=== PATIENT | female | born 1990 | race Caucasian/White ===

== ENCOUNTER 2016-12-13 08:18 | Observation (INO) | payer BC ==
--- NOTE | 2016-12-13 09:26 | RAD ---
INDICATION: Increased liver function tests. COMPARISON: Comparison is made with a prior right upper quadrant ultrasound from November 10, 2015. TECHNIQUE: Multiple real-time images of the right upper quadrant were obtained. FINDINGS: The gallbladder appear normal. No gallbladder wall thickening or pericholecystic fluid is present. No intra or extrahepatic ductal distention is present. The common bile duct measured 0.4 cm in diameter. The liver is normal in size without significant focal abnormality. The previously noted hyperechoic lesions within the liver are not seen on the current study. The pancreas is obscured by overlying bowel gas. The right kidney is normal in size without evidence for hydronephrosis. IMPRESSION: NEGATIVE EXAM.
[2016-12-13 09:44] LABS: Hematocrit 37 % (35-47); Hemoglobin 12.9 g/dl (12.0-16.0); Mean Corpuscular HGB Conc 34 g/dl (31-36); Mean Corpuscular Hemoglobin 35 pg (27-31); Mean Corpuscular Volume 101 fL (80-97); Mean Platelet Volume 7 um3 (7.4-10.4); Red Cell Distribution Width 14 % (10.5-15); White Blood Count 5.4 10^3/ul (3.5-10.8)
[2016-12-13 10:01] LABS: ALT 111 U/L (7-52); AST 187 U/L (13-39); Alkaline Phosphatase 102 U/L (34-104); Amylase 47 U/L (29-103); BUN/Creatinine Ratio 7.8 (8-20); Blood Urea Nitrogen 5 mg/dL (6-24); C Reactive Protein 1.62 mg/L (< 5.00); CO2 Carbon Dioxide 29 mmol/L (22-32); Calcium 8.5 mg/dL (8.6-10.3); Chloride 100 mmol/L (101-111); EGFR African American 142.1 (>60); EGFR Non-African American 110.5 (>60); Glucose 86 mg/dL (70-100); Lipase 52 U/L (11.0-82.0); Magnesium 1.4 mg/dL (1.9-2.7); Sodium 140 mmol/L (133-145)
[2016-12-13 10:04] LABS: Anion Gap 11 mmol/L (2-11); Potassium 2.4 mmol/L (3.5-5.0)
[2016-12-13] MEDS ORDERED: Potassium Chlor TAB* 20 MEQ TAB.ER PO ONE (10:04)
[2016-12-13 10:28] LABS: Urine Bacteria Absent (Absent); Urine Bilirubin Negative (Negative); Urine Glucose Negative (Negative); Urine Nitrite Negative (Negative)
[2016-12-13] MEDS: KCL 10 MEQ/50 ML IVPREMIX* 10 MEQ/50 ML BAG IV SCH ×3 (10:39→13:02)
[2016-12-13] MEDS ORDERED: Magnesium Sulfate 1 GM IV* 1 GM/100 ML BAG IV ONE (10:42)
[2016-12-13] MEDS ORDERED: Magnesium Sulf 4 GM/100 ML IV* 4,000 MG/100 ML BAG IVPB ONE (11:57)
--- NOTE | 2016-12-13 14:49 | ED ---
Laci Acosta Billy, scribed for Samuel Gustafson MD on 12/13/16 at 0846 . Complex/Multi-Sys Presentation - HPI Summary HPI Summary: Patient is a 26 year-old female coming to [facility] for evaluation of diffuse bruising on the lower extremities starting approximately 3 weeks. The bruises hurt with palpation. Patient was referred to the ED by Dr. Felix (cardiology) . She states that her symptoms began when she started her blood pressure medication. Denies any significant injury or trauma that could be the cause of the bruising. Denies any other symptoms such as hematemesis, hematochezia, hematuria, or abdominal pain. She had a recent tick bite to the LUE. - History Of Current Complaint Chief Complaint: EDGeneral Time Seen by Provider: 12/13/16 08:35 Hx Obtained From: Patient Onset/Duration: Gradual Onset, Lasting Weeks, Still Present Timing: Constant Severity Currently: Moderate Severity Initially: Moderate Aggravating Factor(s): bruises hurt with palpation Associated Signs And Symptoms: Negative: Hematemesis - Allergies/Home Medications Allergies/Adverse Reactions: Allergies Allergy/AdvReac Type Severity Reaction Status Date / Time No Known Allergies Allergy Verified 03/27/16 18:29 PMH/Surg Hx/FS Hx/Imm Hx Neurological History: Reports: Hx Seizures, Other Neuro Impairments/Disorders - Syncope Psychiatric History: Reports: Hx Bipolar Disorder Infectious Disease History: No Infectious Disease History: Denies: Traveled Outside the [place] in Last 30 Days - Family History Family History: Mother with rheumatoid arthritis. - Social History Alcohol Use: Occasionally Substance Use Type: Reports: None Hx Tobacco Use: Yes Smoking Status (MU): Light Every Day Tobacco Smoker Review of Systems Negative: Fever Positive: Bruising, Other - tick bite LUE All Other Systems Reviewed And Are Negative: Yes Physical Exam - Summary Physical Exam Summary: The patient is well-nourished in no acute distress and in no acute pain. The skin is warm and dry and skin color reflects adequate perfusion. There is diffuse ecchymosis of the bilateral lower extremities; some bruises are new, whereas others appear to be fading. There is also a tick bite to the posterior aspect of the left upper extremity. HEENT: The head is normocephalic and atraumatic. The pupils are equal and reactive. The conjunctivae are clear and without drainage. Nares are patent and without drainage. Mouth reveals moist mucous membranes and the throat is without erythema and exudate. The external ears are intact. The ear canals are patent and without drainage. The tympanic membranes are intact. Neck is supple with full range of motion and non-tender. There are no carotid bruits. There is no neck vein distension. Respiratory: Chest is non-tender. Lungs are clear to auscultation and breath sounds are symmetrical and equal. Cardiovascular: Heart is regular rate and rhythm. There is no murmur or rub auscultated. There is no peripheral edema and pulses are symmetrical and equal. Abdomen: The abdomen is soft and non-tender. There are normal bowel sounds heard in all four quadrants and there is no organomegaly palpated. Musculoskeletal: There is no back pain noted. Extremities are non-tender with full range of motion. There is good capillary refill. There is no peripheral edema or calf tenderness elicited. Neurological: Patient is alert and oriented to person, place and time. The patient has symmetrical motor strength in all four extremities. Cranial nerves are grossly intact. Deep tendon reflexes are symmetrical and equal in all four extremities. Psychiatric: The patient has an appropriate affect and does not exhibit any anxiety or depression. Triage Information Reviewed: Yes Vital Signs On Initial Exam: Initial Vitals Temp Pulse Resp BP Pulse Ox 98.4 F 117 20 142/98 98 12/13/16 08:19 12/13/16 08:19 12/13/16 08:19 12/13/16 08:19 12/13/16 08:19 Vital Signs Reviewed: Yes Diagnostics - Vital Signs Vital Signs Temp Pulse Resp BP Pulse Ox 12/13/16 08:19 98.4 F 117 20 142/98 98 - Laboratory Result Diagrams: 12/13/16 09:34 12/13/16 09:34 Lab Statement: Any lab studies that have been ordered have been reviewed, and results considered in the medical decision making process. - Ultrasound No standard instances Ultrasound Interpretation Completed By: Radiologist - GALLBLADDER ULTRASOUND: NEGATIVE EXAM. - EKG 1016 EKG Interpretation: NSR 81 bpm, no ST elevation Complex Multi-Symp Course/Dx Assessment/Plan: Patient is a 26 year-old female coming to [facility] for evaluation of diffuse bruising on the lower extremities starting approximately 3 weeks. The bruises hurt with palpation. Patient was referred to the ED by Dr. Felix ( cardiology). She states that her symptoms began when she started her blood pressure medication. Denies any significant injury or trauma that could be the cause of the bruising. Denies any other symptoms such as hematemesis, hematochezia, hematuria, or abdominal pain. She had a recent tick bite to the LUE. Bloodwork WNL except for potassium of 2.4, calcium of 8.5, magnesium of 1.4, and increased LFTs, AST 187, and ALT 111. UA is negative for UTI. At this point, the patient is still waiting for hepatitis panel and also bleeding coagulation test. EKG shows NSR without ST elevations. In the ED course, patient was given potassium 40mg PO and she will be started with IV runs of potassium, magnesium for hypomagnesemia. At this time, I discussed my findings and test results with Dr. White who will be admitting the patient to his services for further workup and management. A&Ox3. - Diagnoses Provider Diagnoses: Hypomagnesemia, Hypokalemia, increased LFTs, diffuse bruising - Physician Notifications Discussed Care Of Patient With: Dr. White (hospitalist) @ 1030: accepted admission. Discharge - Discharge Plan Condition: Stable Disposition: ADMITTED TO [facility] Referrals: Sonny Wilhelm MD [Primary Care Provider] - The documentation as recorded by the Laci marques Billy accurately reflects the service I personally performed and the decisions made by me, Samuel Gustafson MD.
[2016-12-13 15:33] LABS: Potassium 2.8 mmol/L (3.5-5.0)
[2016-12-13 15:36] LABS: Magnesium 4.9 mg/dL (1.9-2.7)
[2016-12-13 15:54] VITALS: BP 135/74
--- NOTE | 2016-12-13 17:06 | ADMNOTE ---
Subjective Date of Service: 12/13/16 Interval History: Ms. Nunez is a 26 yo female with PMH significant for mitral valve disorder, right bundle branch block, neurocardiogenic syncope, Bipolar disorder, hypertension, and possible POTS who presented to the emergency room after being told to come over by Dr. Felix's office for low potassium. She reports having blood work done yesterday and the doctor's office was unable to contact her to notify her of the lab results. While in the emergency room she was found to have potassium of 2.4 and a magnesium of 1.4. She had a Family History: Findings - Reports unknown cancer in her gransfathers Social History: Findings - Smokes 3-5 cigarettes daily for approximately 3 years , occasional drink alcohol, and denies recreational drugs. 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 Her mother Clyde Nunez will be her surrogate decision maker in the event she is unable to make decisions for herself. Review of Systems - Measurements Intake and Output: Intake and Output Last 24 Hours 12/11/16 12/12/16 12/13/16 12/14/16 06:59 06:59 06:59 06:59 Intake Total 676 Balance 676 Intake: IV Fluids 196 Oral 480 Other: Estimated Void Large # Voids 1 - Review of Systems HEENT: Positive: Normal Eyes: Positive: Normal Pulmonary: Negative: Cough Cardiology: Negative: Chest Pain, Shortness of Breath, Palpitations Gastroenterology: Negative: Abdominal Pain, Nausea, Vomiting, Diarrhea Genital - Urinary: Positive: Normal Endocrinology: Positive: Normal Hematologic/Lymphatic: Negative: Easy Brusing Neurology: Positive: Normal Psychiatry: Positive: Other - Bipolar Objective Vital Signs 12/13/16 12/13/16 12/13/16 11:00 11:30 12:00 Temperature 98.5 F 98.5 F Pulse Rate 78 80 95 Respiratory 16 Rate Blood Pressure 132/80 130/79 138/71 (mmHg) O2 Sat by Pulse 96 97 98 Oximetry 12/13/16 12/13/16 12:06 15:42 Temperature 98.5 F 98.6 F Pulse Rate 95 85 Respiratory 16 16 Rate Blood Pressure 138/71 135/74 (mmHg) O2 Sat by Pulse 98 97 Oximetry Oxygen Devices in Use Now: None Appearance: NAD, laying in bed Eyes: No Scleral Icterus, PERRLA Ears/Nose/Mouth/Throat: NL Teeth, Lips, Gums, Mucous Membranes Moist Neck: NL Appearance and Movements; NL JVP, Trachea Midline Respiratory: Symmetrical Chest Expansion and Respiratory Effort, Clear to Auscultation Cardiovascular: NL Sounds; No Murmurs; No JVD, RRR Abdominal: NL Sounds; No Tenderness; No Distention Extremities: No Edema Skin: No Rash or Ulcers, - - Ecchymosis to left thigh and bilateral ankles Neurological: Alert and Oriented x 3, NL Muscle Strength and Tone Lines/Tubes/Other Access: Clean, Dry and Intact Peripheral IV - site benign Result Diagrams: 12/13/16 09:34 12/13/16 15:07 Assess/Plan/Problems-Billing Assessment: Ms. Nunez is a 26 yo female with PMH significant for
--- NOTE | 2016-12-13 17:06 | HP ---
HISTORY AND PHYSICAL:* ADDENDUM: DATE OF ADMISSION: 12/13/16 Ms. Rashida Nunez is a 26-year-old female with history of mitral valve disorder as well as postural tachycardia syndrome for which she is being followed by Dr. Felix. She presented after routine blood work showed her to be severely hypokalemic. She also has hypomagnesemia present. Her LFTs are elevated more so than prior. So far her gallbladder studies failed to demonstrate any pathology. The patient herself has no complaints. She is going to be repleted with her electrolytes including magnesium and potassium. Followup acute hepatitis panel is ordered. It is possible that the patient is going to be discharged today after her electrolytes are repleted with a short followup by her primary care physician in the nearest future. For further details of the patient's presentation and plan, please see her history and physical dictated by Lilia Fierro, on 12/13/16, with which I agree. [id number] #: [id number] MTDD
--- NOTE | 2016-12-13 17:30 | PN ---
Hospitalist Progress Note Ms. Nunez would like to leave AMA at this time. Her repeat labs show a K+ of 2.8 and Magnesium of 4.9. I suspect that the magnesium is falsely elevated as it was drawn above the infusion site for the magnesium. Pt is very anxious at this time, but is able to relay the risk of leaving against medical advise. This includes the risk of a cardiac arrhythmia and possible . She signed the AMA paperwork. She will return to the emergency room if she develops palpitations, chest discomfort, or shortness of breath.
--- NOTE | 2016-12-14 00:36 | HP ---
ATTENDING PHYSICIAN ADDENDUM INCLUDED ON THIS REPORT HISTORY AND PHYSICAL: DATE OF ADMISSION: 12/13/16 PRIMARY CARE PROVIDER: Robbin Rosa MD ATTENDING PHYSICIAN: Farzaneh Spaulding MD *(dictated by Neeru Blank NP) CHIEF COMPLAINT: Abnormal labs. HISTORY OF PRESENT ILLNESS: Ms. Nunez is a 26-year-old female with past medical history significant for mitral valve disorder, right bundle-branch block , neurocardiogenic syncope, bipolar disorder, hypotension, and possible postural orthostatic tachycardia syndrome, who presented to the emergency room after being told to come over by Dr. Felix's office for low potassium. The patient reports having lab work drawn yesterday and the doctor's office was unable to contact her to notify her of her abnormal lab results. The patient reports having a tick bite approximately a week ago. She reports removing the tick at home herself. She has not noticed any rashes. The patient does report that she bruises easily, reports a large area of bruising to her left thigh and both of her ankles. The patient denies any recent fever, chills, chest pain, palpitations, cough, shortness of breath, nausea, vomiting, diarrhea, or abdominal pain. The patient denies any recent cold symptoms or urinary symptoms. While in the emergency room, the patient had repeat labs showing a potassium of 2.4 and a magnesium of 1.4. She also had abnormal liver function. She also was found to have abnormal liver function tests. The patient underwent gallbladder ultrasound showing no acute findings. The patient also had an EKG showing a normal sinus rhythm with a rate of 81. She was noted to have T-wave inversion in lead V1. It appears to be consistent with previous EKG from . The hospitalists were asked to evaluate the patient for admission due to her hypokalemia. PAST MEDICAL HISTORY: 1. Mitral valve disorder. 2. Right bundle-branch block. 3. Neurocardiogenic syncope. 4. Bipolar. 5. Postural orthostatic tachycardia syndrome. 6. Hypotension. PAST SURGICAL HISTORY: Status post excision of a lesion of the left arm. HOME MEDICATIONS: Include: 1. Florinef 0.1 mg oral daily. 2. Lamotrigine 100 mg oral twice daily. 3. Amitriptyline 25 mg oral daily at bedtime. ALLERGIES: No known drug allergies. FAMILY HISTORY: The patient denies any family history of coronary artery disease or diabetes. The patient reports both of her grandfathers had cancer, she is unsure of the details. SOCIAL HISTORY: The patient is a current smoker, smoking 3 to 5 cigarettes daily. She has smoked for the last 3 years. The patient occasionally drinks alcoholic beverages. The patient denies recreational drug use. The patient works full-time at [employer]. Her mother, Azar Nunez, will be her surrogate decision maker in the event she is unable to make decisions for herself. REVIEW OF SYSTEMS: I performed a 14-point review of systems. All the pertinent positives and negatives are mentioned in the history of present illness. The remaining review of systems is negative. PHYSICAL EXAMINATION GENERAL APPEARANCE: The patient is alert, pleasant, and appears to be in no acute distress. VITAL SIGNS: Temperature 98.5, heart rate 95, respiratory rate 16, O2 sat 98% on room air, and blood pressure 138/71. HEENT: Normocephalic, atraumatic. Pupils are equal and reactive to light. Extraocular movements are intact. NECK: Supple. There is no lymphadenopathy noted. RESPIRATORY: There is no accessory muscle use. Lungs are clear to auscultation bilaterally. CARDIAC: Regular rate and rhythm. S1 and S2 are present. There is no murmurs , rubs, or gallops. ABDOMEN: Soft , nontender, and nondistended. There are bowel sounds present x4. EXTREMITIES: There is no lower extremity edema. DP and PT pulses are 2+ and symmetric. MUSCULOSKELETAL: There is no clubbing or cyanosis noted. The patient exhibits good strength in all extremities. NEUROLOGIC: The patient is alert and oriented x4. Cranial nerves II through X11 are grossly intact. PSYCHOLOGICAL: The patient is calm and cooperative. SKIN: The patient has no rashes or abnormalities seen. She does have a small area on the back of her left upper arm that she reports to be tick bite. The patient also has a large amount of ecchymosis to her right upper thigh and just below the medial malleolus on bilateral ankles. DIAGNOSTIC STUDIES/LAB DATA: Sodium 140, potassium 2.4, chloride 100, CO2 29, BUN 5, creatinine 0.64, glucose 86, and magnesium 1.4. White blood cell count 5.4, hemoglobin 12.9, hematocrit 37, and platelet count 286. Liver function testing reveals elevated AST of 187 and ALT of 111. The patient had a negative urinalysis. The patient also had a hepatitis panel showing nonreactive to hepatitis A, IgM antibody, hepatitis B S antigen, hepatitis B core IgM antibody , and hepatitis C antibody. EKG from today shows a sinus rhythm with a rate of 81, new T-wave inversion in lead V1 when compared to previous EKG from 11/16/16. Gallbladder ultrasound from today. Radiologist's impression. Negative exam. IMPRESSION: Ms. Nunez is a 26-year-old female with past medical history significant for mitral valve disorder, right bundle-branch block, neurogenic syncope, bipolar, possible postural orthostatic tachycardia syndrome, and hypotension who presented to the emergency room with electrolyte abnormalities. She will be admitted as an observation for hypokalemia. ASSESSMENT: 1. Hypokalemia and hypomagnesemia: The patient has received a total of 40 mEq of oral potassium in the emergency room. She will get 3 runs out of 10 mEq total of potassium. The patient also received 4 g of magnesium. Recheck the patient's lab later today and if her potassium has improved, she will be able to be discharge home later today. 2. Bipolar disorder: Continue lamotrigine and amitriptyline. 3. Fluids, electrolytes, and nutrition: Regular diet. 4. Code status: Full code. 5. DVT prophylaxis: The patient is at risk and we encouraged to ambulate. 6. Disposition: Observation. TIME SPENT: Time for this admission was 45 minutes and 25 minutes was spent face- to-face with the patient, discussing medications, past medical history, and the events leading up to her arrival today and performing a physical examination. The case has been reviewed with the attending, Dr. Spaulding, who agrees with the plan of care. NEERU GUTIERRES NP ADDENDUM: DATE OF ADMISSION: 12/13/16 Ms. Rashida Nunez is a 26-year-old female with history of mitral valve disorder as well as postural tachycardia syndrome for which she is being followed by Dr. Felix. She presented after routine blood work showed her to be severely hypokalemic. She also has hypomagnesemia present. Her LFTs are elevated more so than prior. So far her gallbladder studies failed to demonstrate any pathology. The patient herself has no complaints. She is going to be repleted with her electrolytes including magnesium and potassium. Followup acute hepatitis panel is ordered. It is possible that the patient is going to be discharged today after her electrolytes are repleted with a short followup by her primary care physician in the nearest future. For further details of the patient's presentation and plan, please see her history and physical dictated by Neeru Gutierres, on 12/13/16, with which I agree. FARZANEH SPAULDING MD CC: Dr. Rosa; Dr. Felix* [id number] #: [id number] #: [id number] [facility] SYSTEMJerald
--- NOTE | 2016-12-14 15:41 | DS ---
DISCHARGE SUMMARY: DATE OF ADMISSION: 12/13/16 DATE OF DISCHARGE: 12/13/16, against medical advice. ATTENDING PHYSICIAN: Dr. Farzaneh Spaulding *(dictated by Neeru Blank NP). PRIMARY CARE PROVIDER: Dr. Robbin Rosa. PRIMARY DIAGNOSES: 1. Hypokalemia. 2. Hypomagnesium. 3. Abnormal liver panel. SECONDARY DIAGNOSES: 1. Mitral valve disorder. 2. History of right bundle-branch block. 3. History of neurocardiogenic syncope. 4. Bipolar. 5. Possible postural orthostatic tachycardia syndrome. 6. Hypotension. STUDIES WHILE IN THE HOSPITAL: Gallbladder ultrasound on 12/13/16. Radiologist 's impression: Negative exam. DISCHARGE MEDICATIONS: New home medications: 1. Potassium chloride 20 mEq oral daily for 4 days. Continued home medications: 1. Amitriptyline 25 mg oral daily at bedtime. 2. Lamotrigine 100 mg oral twice daily. Discontinued home medications: Florinef. HISTORY OF PRESENT ILLNESS/HOSPITAL COURSE: Ms. Nunez is a 26-year-old female with past medical history significant for mitral valve disorder, right bundle- branch block, neurogenic syncope, bipolar disorder, possible postural orthostatic tachycardia syndrome, and hypotension, who presented to the emergency room after being sent by Dr. Felix for electrolyte abnormalities. While in the emergency room, the patient had labs that were significant for potassium of 2.4, magnesium of 1.4. The patient was also found to have an elevated AST of 187 and ALT of 111. The patient had a gallbladder ultrasound that was negative to evaluate for elevated liver function testing and an EKG that showed sinus rhythm. Based on the patient's presentation for hypokalemia, the hospitalist were asked to evaluate the patient for admission. While in the hospital, the patient received a total of 40 mEq of oral potassium and 30 mEq of IV potassium, in addition to IV magnesium replacement. The patient had repeat labs drawn showing a potassium of 2.8 and magnesium of 4.9. In the past, the patient has had elevated liver function test. She reports this is possibly related to her Lamictal that she has been taking. The patient also reports that she has been tested for hepatitis in the past, was told that she may have hepatitis B, but it was felt that her serology was positive due to being immunized for hepatitis B as a child. The patient became anxious to leave , stating she needed to get her daughter. It was recommended to the patient that she stay overnight, be monitored on telemetry, and receive further electrolyte replacements to correct her low potassium as this could result in cardiac arrhythmias. The patient continued to request to leave against medical advice. It was discussed with the patient the risks of leaving such as progressing of illness, cardiac arrhythmias, permanent disability, and possible . The patient was able to state understanding and verbalized in her own words the risks of leaving against medical advice. The patient was discussed with Dr. Felix who felt that her breathing could be related to her Florinef. It was recommended that the patient stop taking her Florinef. The patient's vital signs have remained stable. Ms. Nunez is leaving against medical advice. Vital signs are as follows: Temperature 98.6, heart rate 85, respiratory rate 16, O2 sat 97% on room air, blood pressure 135/74. DISCHARGE PLAN: Ms. Nunez is leaving against medical advice. ACTIVITY: As tolerated. DIET: Regular diet. She has been asked to decrease her fluid intake slightly as it was felt that she may be over-diluting her body with the amount of water that she is taking causing her electrolytes to be low. DISCHARGE INSTRUCTIONS: The patient has been asked to get blood work drawn on Friday or Friday and to follow up with her primary care provider, Dr. Rosa on , 12/19/16 at 9:15 a.m. The patient should also see Dr. Halie Felix in followup and Dr. Felix's office will call the patient with a followup appointment. The patient did have prescription for potassium sent into the pharmacy. Again, she has been asked to stop taking her Florinef as it was felt that this may be causing her bruising. The patient, again, is leaving against medical advice at this time. This is a summarized report of a complex medical history and hospital stay. For further details, please see the entire medical record. TIME SPENT: Time for this discharge was 30 minutes and 20 minutes was spent face- to-face with the patient discussing her leaving against medical advice and discharge instructions. CONDITION ON DISCHARGE: The patient is leaving against medical advice. NEERU GUTIERRES NP CC: Dr. Rosa; Dr. Felix * [id number]/[facility] #: [id number] [facility] CENTERJerald
== END 2016-12-13 16:14 | disposition left against medical advice (07) ==
LOC: ED 08:18 → SSU 10:34
PROVIDERS: ADMIT Internal Medicine; ATTEND Internal Medicine
DX: E87.6 Hypokalemia (principal); E83.42 Hypomagnesemia; R94.5 Abnormal results of liver function studies; I05.9 Rheumatic mitral valve disease, unspecified; I45.10 Unspecified right bundle-branch block; F31.9 Bipolar disorder, unspecified; I95.9 Hypotension, unspecified; Z79.899 Other long term (current) drug therapy; Z32.02 Encounter for pregnancy test, result negative
CPT/HCPCS: 36415; 76705; 80053; 80074; 81003; 81015; 82150; 83690; 83735; 84132; 84702; 85025; 86140; 87086; 93005; 96365; 96366; 96367; 99284; A9270-GY; G0378; J3480

== ENCOUNTER 2016-12-13 17:39 | Observation (INO) | payer BC ==
[2016-12-13 18:32] LABS: Benzodiazepine Urine Screen None Detected (None Detect)
[2016-12-13 18:33] LABS: Hematocrit 35 % (35-47); Hemoglobin 12.4 g/dl (12.0-16.0); Mean Corpuscular HGB Conc 35 g/dl (31-36); Mean Corpuscular Hemoglobin 36 pg (27-31); Mean Corpuscular Volume 102 fL (80-97); Mean Platelet Volume 7 um3 (7.4-10.4); Red Blood Count 3.47 10^6/ul (4.0-5.4); Red Cell Distribution Width 14 % (10.5-15); White Blood Count 7.4 10^3/ul (3.5-10.8)
[2016-12-13 18:33] LABS: Urine Bacteria Absent (Absent); Urine Bilirubin Negative (Negative); Urine Glucose Negative (Negative); Urine Nitrite Negative (Negative)
[2016-12-13 18:55] LABS: Albumin 4.2 g/dL (3.2-5.2); BUN/Creatinine Ratio 7.9 (8-20); Calcium 8.3 mg/dL (8.6-10.3); EGFR African American 144.7 (>60); EGFR Non-African American 112.5 (>60); Globulin 3.2 g/dL (2-4); Potassium 2.9 mmol/L (3.5-5.0); Total Protein 7.4 g/dL (6.4-8.9)
[2016-12-13 19:26] LABS: TSH (Thyroid Stimulating Horm) 3.11 mcIU/mL (0.34-5.60)
[2016-12-13] MEDS: Potassium Chlor TAB* 20 MEQ TAB.ER PO SCH (21:23)
[2016-12-13] MEDS: LAMOTRIGINE 100 MG PO SCH (21:26)
[2016-12-13] MEDS: Potassium Chloride LIQUID* 20 MEQ PACKET PO SCH (22:00)
[2016-12-13] MEDS ORDERED: diPHENhydraMINE PO* 25 MG PO PRN (22:58)
--- NOTE | 2016-12-14 01:42 | HP ---
HISTORY AND PHYSICAL: DATE OF ADMISSION: 12/13/16 NOTE: There are two separate H and Ps from today as the patient had left and was readmitted. PRIMARY CARE PROVIDER: Robbin Rosa MD ATTENDING PHYSICIAN: Farzaneh Spaulding MD* (dictated by Neeru Blank NP) CHIEF COMPLAINT: Presyncopal episode. HISTORY OF PRESENT ILLNESS: Ms. Nunez is a 26-year-old female with past medical history significant for mitral valve disorder, known right bundle- branch block, neurocardiogenic syncope, bipolar disorder, orthostatic hypotension and suspected postural orthostatic tachycardia syndrome who presented to the emergency room today after a presyncopal episode after the patient has left the hospital against medical advice today. The patient was initially sent to the emergency room by Dr. Felix's office for hypokalemia with a potassium of 2.4. The patient's doctor's office had initially attempted to contact her regarding potassium level of 2.6 the evening prior asking her to go to the emergency room. The patient did not get this message and then when she presented Dr. Felix's office, was sent to the emergency room for further evaluation. The patient denied any recent, fever, chills, chest pain, shortness of breath, cough, diarrhea, abdominal pain, or any urinary symptoms such as burning, urgency, or increased frequency. While in the hospital as an observation earlier today, the patient received a total of 30 mEq of IV potassium in addition to 40 mEq of oral potassium. The patient was also found to have low magnesium and received magnesium replacement. Prior to the patient's leaving against medical advice, she had repeat labs showing potassium level of 2.8 and a magnesium of 4.9. I suspected that the patient's elevated magnesium was a result of the patient's magnesium level being drawn above the patient's magnesium infusion. The patient became anxious stating that she needed to leave and left against medical advice. The patient reports that on her way home from hospital, she developed lightheadedness. She pulled her car over as well as though her hands clenched, she was unable to move her arms. When able the patient called her boyfriend who then called his sister to bring the patient back to the emergency room. The patient denies any loss of consciousness. The patient does have a history of similar syncopal episodes in the past. It is also to note that the patient underwent a tilt table test in October 2016 showing a drop in blood pressure. The patient had an echocardiogram in June 2016 showing an EF of 55% to 60% , mitral valve regurgitation, posterior jets with several blocking of the anterior leaflets, and trace tricuspid regurgitation. The patient reports having a tick bite last week. While in the emergency room, the patient had repeat labs showing a potassium of 2.9 and a magnesium of 2.0. The patient was also noted to have elevated liver function tests. She had an urinalysis significant for leukocyte esterase, wbc' s 3+, and rbc's 1+ with 1+ blood. The patient had an urine tox that was negative. Based off the patient's re-presentation to the hospital, the hospitalists were asked to evaluate the patient for admission. PAST MEDICAL HISTORY: 1. Mitral valve disorder. 2. Known right bundle-branch block. 3. Neurocardiogenic syncope. 4. Bipolar disorder. 5. Postural orthostatic tachycardia syndrome. 6. Orthostatic hypotension. PAST SURGICAL HISTORY: Status post excision of a lesion of the patient's left upper extremity. HOME MEDICATIONS: 1. Florinef 0.1 mg. 2. Lamotrigine 100 mg oral twice daily. 3. Amitriptyline 12.5 mg oral daily. 4. Potassium chloride, the patient had not received this yet. She was given this prescription at discharge when she left AMA. ALLERGIES: No known drug allergies. FAMILY HISTORY: The patient denied any family history of coronary artery disease or diabetes mellitus. The patient reports a history of cancer in her grandfathers, she is unsure of the type. SOCIAL HISTORY: The patient smokes 3 to 5 cigarettes daily. She smoked for approximately 3 years. The patient occasionally drinks alcohol. She denies recreational drug use. The patient works full-time at the [employer]. The patient's mother, Clyde Nunez, will be her surrogate decision maker in an event she is unable to make decisions for herself. REVIEW OF SYSTEMS: I performed a 14-point review of systems. All the pertinent positives and negatives are mentioned in the history of present illness. The remaining review of systems are negative. PHYSICAL EXAMINATION GENERAL APPEARANCE: The patient is alert and anxious but pleasant, appears to be in no acute distress. VITAL SIGNS: Temperature 97.0, heart rate 83, respiratory rate 20, O2 sat 100% on room air, and blood pressure 133/84. HEENT: Normocephalic, atraumatic. Pupils are equal and reactive to light. Extraocular movements are intact. NECK: Supple. There is no lymphadenopathy noted. RESPIRATORY: There is no accessory muscle use and the lungs are clear to auscultation bilateral. CARDIOVASCULAR: Regular rate and rhythm. S1, S2 are present. There is no murmurs, rubs, or gallops heard. ABDOMEN: Soft, nontender, and nondistended. There are bowel sounds present x4. EXTREMITIES: There is no lower extremity edema. DP and PT pulses are 2+ and symmetric. MUSCULOSKELETAL: There is no clubbing or cyanosis noted. The patient exhibits good strength in all extremities. NEUROLOGIC: The patient is alert and oriented x4. Cranial nerves II through XII are grossly intact. PSYCHOLOGICAL: The patient is cooperative but anxious. SKIN: The patient has numerous areas of ecchymosis on her bilateral lower extremity. Some bruising appears to be new while others appear to be older and fading. The patient also has tick bite to her posterior aspect of her left upper extremity. DIAGNOSTIC STUDIES/LAB DATA: Sodium 134, potassium 2.9, chloride 97, CO2 25, BUN 5, creatinine 0.63, and glucose 111. White blood cell count 7.4, hemoglobin 12.4, hematocrit 35, and platelet count 281. AST 199 and ALT 119. Troponin 0.00. Alk phos 109. Urine tox negative. Urinalysis significant for 1 + blood, 1+ leukocyte esterase, 3+ wbc's, 1+ rbc's, and squamous epithelial cells present. EKG from today shows a sinus rhythm with a T-wave inversion in lead V1 at a rate of 77. This EKG is similar to previous EKG from today and 11/16/15. IMPRESSION: Ms. Nunez is a 26-year-old female with past medical history significant for known right bundle-branch block, neurocardiogenic syncope, bipolar disorder, postural orthostatic tachycardia syndrome, and orthostatic hypotension who presents to the emergency room after a syncopal episode and also has hypokalemia. She will be admitted as an observation. ASSESSMENT: 1. Syncope: The patient will be monitored on telemetry overnight. The patient reports this is similar to her previous syncopal episodes in the past. She will also have neurological checks q.4 hours. We will hold on any further imaging at this time. The patient is also noted to have failed the tilt table test in October 2016 and had an echocardiogram in 2015 with an EF of 55% to 60% , mitral valve regurgitation, posterior jets with several blocking of the anterior leaflets, and trace tricuspid regurgitation.. We will obtain orthostatic vital signs. 2. Hypokalemia: So far the patient has received a total of 70 mEq of potassium today. She will receive another 80 mEq oral over the course of the evening. I suspect this is related to excessive water intake. The patient states that she drinks a lot of water, but is unable to quantify the amount. 3. Hypomagnesemia: It is noted that the patient's magnesium is now normal at 2.0. 4. History of orthostatic hypotension: The patient is on Florinef. This could be causing the patient's bruising. Florinef will be stopped. The patient will be switched to Midodrine. I recommend if the patient continues to have bruising, a hematology consult be considered. 5. Elevated liver function tests: The patient is on amitriptyline. She takes this for migraines. She reports being on it for only a short period of time. We will start the patient's amitriptyline at this time as this maybe elevating her liver function tests. We will also do Lyme serology as this could also be a cause of the patient's elevated liver function tests and the patient has a known recent tick bite. 6. Bipolar disorder: The patient will be continued on her lamotrigine. 7. Fluids, electrolytes, and nutrition: The patient will be on a regular diet. 8. Code status: Full code. 9. DVT prophylaxis: The patient is at low risk and will be encouraged to ambulate. 10. Disposition: Observation. TIME SPENT: Time for this admission was 45 minutes and 20 minutes was spent [id number] with the patient, discussing medications, past medical history, and the events leading up to her arrival today and performing a physical examination. The case has been reviewed with the attending, Dr. Spaulding, who agrees with the plan of care. NEERU BLANK NP CC: Robbin Rosa MD* [id number]/[facility] [place]: [id number] CRISTY
[2016-12-14] MEDS: Potassium Chloride LIQUID* 20 MEQ PACKET PO SCH ×3 (01:47→11:27)
[2016-12-14 05:57] LABS: Albumin 3.9 g/dL (3.2-5.2); BUN/Creatinine Ratio 8.5 (8-20); Calcium 8.5 mg/dL (8.6-10.3); EGFR African American 156.1 (>60); EGFR Non-African American 121.4 (>60); Globulin 2.9 g/dL (2-4); Magnesium 1.9 mg/dL (1.9-2.7); Potassium 3.4 mmol/L (3.5-5.0); Total Bilirubin 1.2 mg/dL (0.2-1.0); Total Protein 6.8 g/dL (6.4-8.9)
[2016-12-14] MEDS: Potassium Chlor TAB* 20 MEQ TAB.ER PO SCH (06:57)
[2016-12-14] MEDS ORDERED: Potassium Chlor TAB* 20 MEQ TAB.ER PO ONE (07:48)
[2016-12-14] MEDS ORDERED: CMCS: Midodrine (NF) 5 MG TAB PO SCH (08:00)
--- NOTE | 2016-12-14 08:17 | PN ---
Subjective Date of Service: 12/14/16 Objective Active Medications: Diphenhydramine HCl (Benadryl Po*) 25 mg PO Q6H PRN PRN Reason: ITCHING Last Admin: 12/14/16 00:17 Dose: 25 mg Lamotrigine (Lamictal Xr (Nf)) 100 mg PO BID [facility] Last Admin: 12/13/16 21:26 Dose: Not Given Midodrine (Midodrine (Nf)) 5 mg PO 0800,1600 [facility] PRN Reason: Protocol Potassium Chloride (Klor-Con Liquid*) 20 meq PO Q2HR [facility] Stop: 12/14/16 12:01 Vital Signs 12/13/16 12/13/16 12/13/16 18:30 19:00 19:17 Temperature 97.9 F Pulse Rate 81 84 Respiratory 20 21 Rate Blood Pressure 133/84 137/87 (mmHg) O2 Sat by Pulse 100 99 Oximetry 12/13/16 12/13/16 12/14/16 20:30 23:31 00:17 Temperature 97.5 F 98.7 F Pulse Rate 85 84 Respiratory 16 20 18 Rate Blood Pressure 135/80 134/72 (mmHg) O2 Sat by Pulse 97 97 Oximetry 12/14/16 12/14/16 12/14/16 02:17 03:08 07:50 Temperature 98.0 F 98.4 F Pulse Rate 70 99 Respiratory 16 16 16 Rate Blood Pressure 121/69 144/85 (mmHg) O2 Sat by Pulse 98 100 Oximetry Result Diagrams: 12/13/16 18:25 12/14/16 04:55 Assess/Plan/Problems-Billing Assessment: 26 yo female with PMH of right bundle branch block, neurocardiogenic syncope, bipolar disorder, postural orthostatic tachycardia syndrome, orthostatic hypotension who presented to the emergency department after leaving the hospital AMA then returned after a syncopal episode. The patient was initially was referred to the emergency department by Dr. Felix for hypokalemia. - Patient Problems (1) Syncope Current Visit: Yes Status: Acute Code(s): R55 - SYNCOPE AND COLLAPSE SNOMED Code(s): 213724568 (2) Electrolyte abnormality Current Visit: Yes Status: Acute Code(s): E87.8 - OTH DISORDERS OF ELECTROLYTE AND FLUID BALANCE, NEC SNOMED Code(s): 672460878
[2016-12-14] MEDS: LAMOTRIGINE 100 MG PO SCH (09:45)
[2016-12-14 12:54] VITALS: BP 143/76
--- NOTE | 2016-12-15 06:56 | DS ---
DISCHARGE SUMMARY: DATE OF ADMISSION: 12/13/16 DATE OF DISCHARGE: 12/14/16 HOSPITAL STATUS: Observation. PROVIDER: Hannah Bonner NP ATTENDING PHYSICIAN: Cyrus Deluna MD* (report dictated by Hannah Bonner NP) PRIMARY CARE PROVIDER: Robbin Rosa MD ROSTER CLERK: Halie Felix MD INFECTIOUS DISEASE: Andrew Barriga MD PRIMARY DIAGNOSES: 1. Presyncope with history of neurocardiogenic syncope and history of orthostasis. 2. Hypokalemia. 3. Transaminitis. 4. Recent tick bite. 5. Spontaneous ecchymosis. DISCHARGE MEDICATIONS: 1. Potassium chloride 20 mEq p.o. daily. 2. Lamictal ER 100 mg p.o. b.i.d. 3. Benadryl 25 mg p.o. q.6 hours p.r.n. 4. Midodrine 5 mg p.o. b.i.d. HISTORY OF PRESENT ILLNESS AND HOSPITAL COURSE: Please see history and physical by Lilia Fierro NP, for full admission details, but in summary, this is a 26-year-old female with a past medical history significant for mitral valve disorder, right bundle-branch disorder, neurocardiogenic syncope, bipolar disorder, orthostatic hypotension, and suspected postural orthostatic tachycardia syndrome, who initially was sent to the emergency department on 12/13/[address] Felix's office for concern for hypokalemia with a potassium of 2.4. The patient was admitted to the hospital and given potassium supplementation as well as magnesium replacement. The patient left against medical advice and as she was driving away from the hospital, she became lightheaded, pulled her car over to the side of the road, and thought she was going to pass out. She called her brother who picked her up and brought her back to the emergency department. The patient denied any loss of consciousness. The patient has a long history of neurogenic syncope and orthostatic hypotension with possible postural orthostatic tachycardia syndrome. She underwent a tilt table test in October 2016, which showed a drop in blood pressure. She was started on Florinef recently and has noted since has had spontaneous bruising on her legs and trunk. She is noted to have a normal platelet level. The patient's Florinef was discontinued and she was started on midodrine as well as she was noted to have transaminitis; however, she has a history going back to 2014 and 2015 with noted elevated liver enzymes. Her amitriptyline was discontinued. The patient did undergo a gallbladder ultrasound in the emergency department, which was a negative exam. It is noted she had a liver ultrasound in November 2015, which showed hemangiomas. I do note that the radiologist states "if the patient has any risk factors or history of malignancy, then further characterization to be made with MRI of the abdomen with and without contrast." The patient was admitted to the hospitalist service, admitted to the telemetry for presyncope as well as she was noted to have a potassium at 2.9 on readmission yesterday. She was given potassium supplementation. Her magnesium is within normal limits. Today, the patient would like to go home. She has not had any further presyncope or syncopal episodes. Her orthostatic vital signs show her to not to be orthostatic. She has been ambulating around the unit without dizziness and has had no noted arrhythmias on telemetry monitoring. The patient is stable for discharge home with close followup with her primary and employment legal assistant as an outpatient. The patient reports she had a tick bite 1 to 2 weeks ago on the back of her left upper arm. It is noted to have slight erythema, but does not appear to be infected. A Lyme titer was sent and is pending at the time of this dictation. The patient was instructed to follow up with Dr. Barriga as an outpatient, which she has seen him before in the past. Her urine drug tox screen was negative. Her urinalysis was slightly abnormal, but suspect this was contamination as her urine culture is negative for growth. No signs of infection. PHYSICAL EXAMINATION: Vital Signs: Temperature 98.4, heart rate 76, respirations 16, O2 sat 100% on room air, and blood pressure 137/67. General appearance: A healthy-appearing 26-year-old female, sitting up on the side of the bed, alert and oriented x3, in no acute distress, good historian. HEENT: Head is normocephalic, atraumatic. Pupils are equal and reactive to light. Oropharynx is clear. Moist mucous membranes. Good dentition. Neck: Supple. No cervical or supraclavicular lymphadenopathy. Cardiac: S1, S2. No murmurs, rubs, or gallops appreciated. No lower extremity edema noted. Lungs: Clear to auscultation bilaterally. Good aeration throughout. Abdomen: Soft, nontender, and nondistended. Normal bowel sounds x4. Extremities: Strength is 5/5 throughout. Moves all extremities equally. Skin: Large area of ecchymosis noted on upper left thigh and lower left anterior galvez, which appears to be in different stages of healing. Posterior left upper arm has noted 0.5 x 0.5-inch irregular area of erythema with a noted scab in the center of the area. No drainage noted. It is soft and does not appear to be infected or have an underlying abscess. Neuro: Cranial nerves II through XII are grossly intact. Psych: Appropriate to situation. Alert and oriented x3. DISCHARGE PLAN: 1. Plan is to discharge the patient to home. She should be driven home by her boyfriend. 2. Follow up potassium and liver enzymes on 12/16/16, with results to PCP and employment legal assistant. 3. Follow up with previously scheduled appointment this week with Dr. Rosa. 4. Follow up with Dr. Felix, employment legal assistant, at previously scheduled appointment this week. 5. Follow up with Dr. Barriga for possible Lyme exposure. Her Lyme test pending at the time of dictation. I did discuss with the patient that she should follow up with her primary first to check the results of the Lyme test. 6. In regards to her left upper arm tick bite site that appears mildly erythematous, it does not appear to be infected. I instructed the patient to wash daily with soap and water and keep a close eye in it and show her to primary this week at the time of evaluation. 7. In regards to the patient's spontaneous ecchymosis, it is possible that the Florinef, she is to follow up with Dr. Felix. At this time, the Florinef has been discontinued. She has normal platelet levels. If this continues, that she should be referred to Hematology. 8. In regards to the patient's transaminitis, again her amitriptyline was discontinued. Her liver enzymes will be rechecked in 2 days and going back to the ultrasound of liver from November 2015, it does note, she has avascular hyperechogenic lesions in the liver, which are most compatible with hemangiomas ; however, the primary should consider an MRI of the abdomen with and without contrast for further evaluation. The patient is stable for discharge to home. TIME SPENT: Approximately 60 minutes were spent on this discharge. HANNAH BONNER NP CC: Dr. Rosa; Dr. Felix; Dr. Barriga* [id number]/[facility] #: [id number] [facility]ENTERJerald
--- NOTE | 2016-12-15 18:46 | ED ---
Laci Acosta Billy, scribed for Samuel Gustafson MD on 12/13/16 at 1757 . Complex/Multi-Sys Presentation - HPI Summary HPI Summary: Patient is a 26 year-old female coming to [facility] to be admitted to hospitalist services. Patient was seen in the ED earlier today and accepted for admission by Dr. White, but she left AMA. As she was driving home, at approximately 1630 , she states she began to feel as if she would have a syncopal episode. She pulled over on the side of the road, and she states she felt tingling in her hands and arms, as well as cramping in her fingers. She has diffuse tremors at this time. Denies any headache, chest pain, palpitations, or SOB. - History Of Current Complaint Chief Complaint: EDGeneral Time Seen by Provider: 12/13/16 17:51 Hx Obtained From: Patient Onset/Duration: Gradual Onset Timing: Intermittent, Lasting: Severity Currently: Moderate Severity Initially: Moderate Aggravating Factor(s): none Alleviating Factor(s): none Associated Signs And Symptoms: Positive: Syncope, Other - tingling in upper extremities, cramping fingers, tremors. Negative: Headache, SOB, Chest Pain, Palpitations - Allergies/Home Medications Allergies/Adverse Reactions: Allergies Allergy/AdvReac Type Severity Reaction Status Date / Time No Known Allergies Allergy Verified 03/27/16 18:29 PMH/Surg Hx/FS Hx/Imm Hx Cardiovascular History: Reports: Other Cardiovascular Problems/Disorders - MVP Neurological History: Reports: Hx Seizures, Other Neuro Impairments/Disorders - Syncope Psychiatric History: Reports: Hx Bipolar Disorder Infectious Disease History: No Infectious Disease History: Denies: Traveled Outside the [place] in Last 30 Days - Family History Family History: Mother with rheumatoid arthritis. - Social History Alcohol Use: Occasionally Substance Use Type: Reports: None Hx Tobacco Use: Yes Smoking Status (MU): Light Every Day Tobacco Smoker Review of Systems Positive: Other - tremors. Negative: Fever Negative: Palpitations, Chest Pain Negative: Shortness Of Breath Positive: Other - cramping fingers Positive: Rash Positive: Paresthesia - upper extremities, Syncope. Negative: Headache All Other Systems Reviewed And Are Negative: Yes Physical Exam - Summary Physical Exam Summary: The patient is well-nourished in no acute distress and in no acute pain. The skin is warm and dry and skin color reflects adequate perfusion. There is diffuse ecchymosis of the bilateral lower extremities; some bruises are new, whereas others appear to be fading. There is also a tick bite to the posterior aspect of the left upper extremity. HEENT: The head is normocephalic and atraumatic. The pupils are equal and reactive. The conjunctivae are clear and without drainage. Nares are patent and without drainage. Mouth reveals moist mucous membranes and the throat is without erythema and exudate. The external ears are intact. The ear canals are patent and without drainage. The tympanic membranes are intact. Neck is supple with full range of motion and non-tender. There are no carotid bruits. There is no neck vein distension. Respiratory: Chest is non-tender. Lungs are clear to auscultation and breath sounds are symmetrical and equal. Cardiovascular: Heart is regular rate and rhythm. There is no murmur or rub auscultated. There is no peripheral edema and pulses are symmetrical and equal. Abdomen: The abdomen is soft and non-tender. There are normal bowel sounds heard in all four quadrants and there is no organomegaly palpated. Musculoskeletal: There is no back pain noted. Extremities are non-tender with full range of motion. There is good capillary refill. There is no peripheral edema or calf tenderness elicited. Neurological: Patient is alert and oriented to person, place and time. The patient has symmetrical motor strength in all four extremities. Cranial nerves are grossly intact. Deep tendon reflexes are symmetrical and equal in all four extremities. Psychiatric: The patient appears anxious at this time. Triage Information Reviewed: Yes Vital Signs On Initial Exam: Initial Vitals Temp Pulse Resp BP Pulse Ox 97.0 F 80 20 146/88 100 12/13/16 17:41 12/13/16 17:41 12/13/16 17:41 12/13/16 17:41 12/13/16 17:41 Vital Signs Reviewed: Yes Diagnostics - Vital Signs Vital Signs Temp Pulse Resp BP Pulse Ox 12/13/16 17:41 97.0 F 80 20 146/88 100 - Laboratory Result Diagrams: 12/13/16 18:25 12/14/16 04:55 Lab Statement: Any lab studies that have been ordered have been reviewed, and results considered in the medical decision making process. - EKG 1755 EKG Interpretation: NSR 77 bpm, no ST elevation Complex Multi-Symp Course/Dx Assessment/Plan: Patient is a 26 year-old female coming to [facility] to be admitted to hospitalist services. Patient was seen in the ED earlier today and accepted for admission by Dr. White, but she left AMA. As she was driving home, at approximately 1630, she states she began to feel as if she would have a syncopal episode. She pulled over on the side of the road, and she states she felt tingling in her hands and arms, as well as cramping in her fingers. She has diffuse tremors at this time. Denies any headache, chest pain, palpitations , or SOB. EKG shows NSR without ST elevations. Case discussed with Dr. Marlow, who accepted the patient for admission. - Diagnoses Provider Diagnoses: Syncope - Physician Notifications Discussed Care Of Patient With: Dr. Marlow (hospitalist) @ 1803: accepted patient for admission. Discharge - Discharge Plan Condition: Stable Disposition: ADMITTED TO [facility] The documentation as recorded by the Laci marques Billy accurately reflects the service I personally performed and the decisions made by me, Samuel Gusatfson MD.
== END 2016-12-14 13:58 | disposition home or self-care (01) ==
LOC: ED 17:39 → MEDTELE 18:07
PROVIDERS: ADMIT Internal Medicine; ATTEND Internal Medicine
DX: R55 Syncope and collapse (principal); E87.6 Hypokalemia; R74.0 Nonspecific elevation of levels of transaminase and lactic acid dehydrogenase [LDH]; E87.8 Other disorders of electrolyte and fluid balance, not elsewhere classified; R23.3 Spontaneous ecchymoses; I45.10 Unspecified right bundle-branch block; I05.9 Rheumatic mitral valve disease, unspecified; F31.9 Bipolar disorder, unspecified; R00.0 Tachycardia, unspecified; R94.31 Abnormal electrocardiogram [ECG] [EKG]; Z79.899 Other long term (current) drug therapy; F17.210 Nicotine dependence, cigarettes, uncomplicated
CPT/HCPCS: 36415; 80053; 80307; 81003; 83735; 84443; 84484; 85025; 86618; 93005; 99284; 99406; A9270-GY; G0378

== ENCOUNTER 2016-12-21 17:00 | Emergency (ER) | payer BC ==
[2016-12-21 18:38] VITALS: BP 108/85
--- NOTE | 2016-12-21 18:47 | UC ---
Upper Extremity HPI - HPI Summary HPI Summary: The patient comes in today for: 1. Left upper arm pain: Onset: 2 days ago. Palliative/provocative: Arm movement that causes the end of the cast to dig into her soft tissue. Quality: Soreness. Region: Upper left arm. Severity: 11/15 Time: Constant. Associated symptoms: Event: She states that she fell in the bathroom (foot slipped) and her left elbow hit the railing on the way down and then on the floor. She went to [facility] yesterday and an x-ray was done. It showed a "bone was found floating around in the elbow." She had a splint applied. She states that the splint is not digging into her upper left arm and wants this fixed. "Tick bite": She states that she has been seen by her primary care provider for this. She tested negative for Lyme. The punch biopsy has been sent off. * - History of Current Complaint Chief Complaint: UCUpperExtremity Stated Complaint: ARM Time Seen by Provider: 12/21/16 18:16 Hx Obtained From: Patient Hx Last Menstrual Period: 2 DAYS AGO ?: No - Allergies/Home Medications Allergies/Adverse Reactions: Allergies Allergy/AdvReac Type Severity Reaction Status Date / Time No Known Allergies Allergy Verified 03/27/16 18:29 Home Medications: Home Medications Amitriptyline TAB* [Elavil TAB*] 0.5 tab PO DAILY 12/21/16 [History Confirmed ] PMH/Surg Hx/FS Hx/Imm Hx Previously Healthy: No - "low blood pressure," Endocrine History Of: Denies: Diabetes, Thyroid Disease, Hyperthyroidism, Hypothyroidism, Dyslipidemia Cardiovascular History Of: Reports: Cardiac Disorders - MITRAL VALVE DISORDER, RT BUNDLE BLOCKAGE Denies: Hypertension, Pacemaker/ICD, Myocardial Infarction, Congestive Heart Failure, Atrial Fibrillation, Deep Vein Thrombosis, Bleeding Disorders Respiratory History Of: Denies: COPD, Asthma, Bronchitis, Pneumonia, Pulmonary Embolism GI/ History Of: Denies: Gastroesophageal Reflux, Ulcer, Gastrointestinal Bleed, Gall Bladder Disease, Kidney Stones, Diverticulitis, Renal Disease, Urosepsis Neurological History Of: Reports: Seizures, Migraine - On amitriptyline for this. Denies: TIA, CVA, Dementia Psychological History Of: Reports: Bipolar Disorder Denies: Anxiety, Depression, Schizophrenia, Post Traumatic Stress Disorder Cancer History Of: Denies: Lung Cancer, Colorectal Cancer, Breast Cancer, Prostate Cancer, Cervical Cancer Other History Of: Hepatitis B - She has antibioties against hepatitis B Negative For: HIV, Hepatitis C, Anticoagulant Therapy - Surgical History Surgical History: Yes Surgery Procedure, Year, and Place: BIOPSY 1.5 YEARS AGO LEFT ARM SECONDARY TO AN ARTHROPOD BITE. PUUNCH BIOBSY 2 DAYS AGO LEFT UPPER ARM. - Family History Known Family History: Positive: Cardiac Disease, Hypertension Family History: Mother with rheumatoid arthritis. - Social History Occupation: Employed Full-time Alcohol Use: Occasionally Substance Use Type: None Smoking Status (MU): Light Every Day Tobacco Smoker Type: Cigarettes Amount Used/How Often: 3-4 CIGS/DAY Length of Time of Smoking/Using Tobacco: 3+ YEARS Have You Smoked in the Last Year: Yes Household Exposure Type: Cigarettes Review of Systems Constitutional: Negative Skin: Rash Eyes: Negative ENT: Negative Respiratory: Negative Cardiovascular: Negative Gastrointestinal: Negative Genitourinary: Negative All Other Systems Reviewed And Are Negative: Yes Physical Exam Triage Information Reviewed: Yes Appearance: Well-Appearing, No Pain Distress, Well-Nourished Vital Signs: Initial Vital Signs Temp 97.7 F 12/21/16 18:28 Pulse 99 12/21/16 18:28 Resp 16 12/21/16 18:28 BP 108/85 12/21/16 18:28 Pulse Ox 98 12/21/16 18:28 Vital Signs Reviewed: Yes Eyes: Positive: Conjunctiva Clear. Negative: Discharge ENT: Positive: Hearing grossly normal. Negative: Pharyngeal erythema, Nasal congestion, Nasal drainage, TM bulging, TM dull, TM red, Tonsillar swelling, Tonsillar exudate Dental: Negative: Gross Decay/Caries @, Dental Fracture @ Neck: Positive: Supple, Nontender, No Lymphadenopathy. Negative: Nuchal Rigidity Respiratory: Positive: Chest non-tender, Lungs clear, No respiratory distress, No accessory muscle use. Negative: Crackles, Wheezing Cardiovascular: Positive: RRR, No Murmur Abdomen Description: Positive: Nontender, No Organomegaly, Soft. Negative: Distended, Guarding Musculoskeletal: Positive: Strength Intact, ROM Intact, Other: - The posterior arm splint of the left arm rides high to the axilla. The patient wanted part of it cut off. There were signs of friction irritation to the soft tissue of that area. Neurological: Positive: Alert, Muscle Tone Normal Psychological: Positive: Age Appropriate Behavior, Consolable Skin: Positive: rashes - There is erythema of the upper arm/axilla (left) consistent with superficial friction injury. Upper Extremity Course/Dx - Course Course Of Treatment: Patient was told of her treatment options. She and I agreed to use a cast cutter and remove about 1 inch of the upper splint and the end rounded. The end was covered by stocking. New Rodrick wraps were used on the splint and the old ones removed and thrown away. She felt much better and stated that this manipulation met her needs. - Differential Dx/Diagnosis Provider Diagnoses: Soft tissue injury of the left axilla due to end of her left arm posterior splint. Discharge - Discharge Plan Condition: Stable Disposition: HOME Additional Instructions: Please follow up with the orthopedic surgeon as you have previously planned. Any further problems, please be seen again by your primary care provider, us or the ER.
== END 2016-12-21 19:20 | disposition home or self-care (01) ==
LOC: UCEAST 17:00
DX: T84.89XA Other specified complication of internal orthopedic prosthetic devices, implants and grafts, initial encounter (principal); S49.82XA Other specified injuries of left shoulder and upper arm, initial encounter; Y92.9 Unspecified place or not applicable; F17.210 Nicotine dependence, cigarettes, uncomplicated; Y84.8 Other medical procedures as the cause of abnormal reaction of the patient, or of later complication, without mention of misadventure at the time of the procedure
CPT/HCPCS: 99211; G0463

== ENCOUNTER 2017-01-09 06:28 | Inpatient (IN) | payer BC ==
[2017-01-09 07:20] LABS: Hematocrit 39 % (35-47); Hemoglobin 13.5 g/dl (12.0-16.0); Mean Corpuscular HGB Conc 35 g/dl (31-36); Mean Corpuscular Hemoglobin 35 pg (27-31); Mean Corpuscular Volume 101 fL (80-97); Mean Platelet Volume 8 um3 (7.4-10.4); Red Blood Count 3.84 10^6/ul (4.0-5.4); Red Cell Distribution Width 13 % (10.5-15)
[2017-01-09 07:40] LABS: ALT 167 U/L (7-52); AST 181 U/L (13-39); Albumin 4.6 g/dL (3.2-5.2); Alkaline Phosphatase 98 U/L (34-104); Anion Gap 13 mmol/L (2-11); BUN/Creatinine Ratio 16.5 (8-20); Blood Urea Nitrogen 13 mg/dL (6-24); CO2 Carbon Dioxide 22 mmol/L (22-32); Calcium 9.8 mg/dL (8.6-10.3); Chloride 98 mmol/L (101-111); EGFR African American 111.4 (>60); EGFR Non-African American 86.7 (>60); Globulin 3.3 g/dL (2-4); Glucose 95 mg/dL (70-100); Potassium 3.2 mmol/L (3.5-5.0); Sodium 133 mmol/L (133-145); Total Protein 7.9 g/dL (6.4-8.9)
[2017-01-09 07:45] LABS: Urine Bacteria Absent (Absent); Urine Bilirubin Negative (Negative); Urine Glucose Negative (Negative); Urine Nitrite Negative (Negative)
[2017-01-09 07:49] LABS: Benzodiazepine Urine Screen None Detected (None Detect)
[2017-01-09] MEDS: Thiamine IV* 100 MG, Folic Acid IV* 1 MG, Multiple Vitamin IV ADULT* 10 ML in NS 0.9% 1... IV ONE ×3 (07:57→07:59)
[2017-01-09 08:03] LABS: Acetaminophen < 15 mcg/mL; Alcohol < 10 mg/dL (<10); Salicylate < 2.50 mg/dL (<30)
[2017-01-09 08:14] LABS: TSH (Thyroid Stimulating Horm) 2.15 mcIU/mL (0.34-5.60)
[2017-01-09] MEDS ORDERED: Potassium Chlor TAB* 20 MEQ TAB.ER PO ONE (08:21)
[2017-01-09 08:48] LABS: Magnesium 1.2 mg/dL (1.9-2.7)
[2017-01-09] MEDS ORDERED: Magnesium Sulfate 1 GM IV* 1 GM/100 ML BAG IV ONE (09:03)
[2017-01-09] MEDS ORDERED: LORazepam TAB(*) 1 MG PO ONE ×2 (11:50→15:41)
[2017-01-09] MEDS ORDERED: Haloperidol TAB* 5 MG PO ONE ×2 (11:51→15:41)
[2017-01-09] MEDS ORDERED: diPHENhydraMINE PO* 50 MG PO ONE (15:41)
[2017-01-09] MEDS ORDERED: LORazepam TAB(*) 1 MG ONE (15:43)
[2017-01-09] MEDS ORDERED: Magnesium Oxide TAB* 400 MG PO ONE (15:51)
--- NOTE | 2017-01-09 16:21 | ED ---
Jacqueline Acosta Alok, scribed for aSmuel Gustafson MD on 01/09/17 at 0725 . Substance Abuse/Use - HPI Summary HPI Summary: 26 y/o female presents to the ED seeking mental evaluation following late stage alcohol withdrawal symptoms. Pt states that she has been alcohol free for 4 days and no longer feels any physical withdrawal symptoms. However, she does report feeling confusion, short-term memory loss, and delirium-like symptoms for the past 2 days, especially in the mornings. PMHx includes bipolar disorder , reduced liver enzymes, low and high BP, and mitral valve disorder. Pt currently smokes 1/3 ppd. While drinking, pt reports drinking approximately 4-6 ETOH drinks per day for almost a year. - History Of Current Complaint Chief Complaint: EDSubstanceAbuse Stated Complaint: MHE Time Seen by Provider: 01/09/17 07:07 Hx Obtained From: Patient Hx Last Menstrual Period: 2 DAYS AGO ?: No Onset/Duration of Drug/ETOH Abuse: Years - almost one Timing Of Abuse: Daily Severity Initially: Moderate Severity Currently: Moderate Aggravating Factor(s): Nothing Alleviating Factor(s): Nothing Associated Signs And Symptoms: Confused, Sleep Disturbance, Other: - memory loss Related Hx: Drug/Alcohol Last Used @ - 4 days ago - Allergies/Home Medications Allergies/Adverse Reactions: Allergies Allergy/AdvReac Type Severity Reaction Status Date / Time No Known Allergies Allergy Verified 03/27/16 18:29 Home Medications: Home Medications Lamotrigine XR (NF) [Lamictal XR (NF)] 100 mg PO BID 01/09/17 [History Confirmed 01/09/17] Potassium Chlor TAB* [Potassium Chlor TAB 20 MEQ*] 20 meq PO BID 01/09/17 [ History Confirmed 01/09/17] PMH/Surg Hx/FS Hx/Imm Hx Endocrine/Hematology History: Reports: Other Endocrine/Hematological Disorders - frequent large hematomas Denies: Hx Anticoagulant Therapy, Hx Diabetes, Hx Thyroid Disease Cardiovascular History: Reports: Hx Hypotension, Hx Syncope, Other Cardiovascular Problems/Disorders - MVP Denies: Hx Congestive Heart Failure, Hx Deep Vein Thrombosis, Hx Hypertension , Hx Myocardial Infarction, Hx Pacemaker/ICD Respiratory History: Denies: Hx Asthma, Hx Chronic Obstructive Pulmonary Disease (COPD), Hx Lung Cancer, Hx Pneumonia, Hx Pulmonary Embolism GI History: Denies: Hx Gall Bladder Disease, Hx Gastrointestinal Bleed, Hx Ulcer, Hx Urosepsis History: Denies: Hx Kidney Stones, Hx Renal Disease Sensory History: Reports: Hx Contacts or Glasses Opthamlomology History: Reports: Hx Contacts or Glasses Neurological History: Reports: Hx Migraine - On amitriptyline for this., Hx Seizures, Other Neuro Impairments/Disorders - Syncope Denies: Hx Dementia, Hx Transient Ischemic Attacks (TIA) Psychiatric History: Reports: Hx Bipolar Disorder Denies: Hx Anxiety, Hx Depression, Hx Schizophrenia - Surgical History Surgery Procedure, Year, and Place: BIOPSY 1.5 YEARS AGO LEFT ARM SECONDARY TO AN ARTHROPOD BITE. PUUNCH BIOBSY 2 DAYS AGO LEFT UPPER ARM. - Immunization History Date of Tetanus Vaccine: within past few years Date of Influenza Vaccine: never Infectious Disease History: No Infectious Disease History: Denies: Hx Clostridium Difficile, Hx Hepatitis, Hx Human Immunodeficiency Virus (HIV), Hx of Known/Suspected MRSA, Hx Shingles, Hx Tuberculosis, Hx Known/ Suspected VRE, Hx Known/Suspected VRSA, History Other Infectious Disease, Traveled Outside the [place] in Last 30 Days - Family History Known Family History: Positive: Cardiac Disease, Hypertension, Other - Arthritis , [place] Family History: Mother with rheumatoid arthritis. - Social History Occupation: Employed Full-time Alcohol Use: Occasionally Substance Use Type: Reports: None Hx Tobacco Use: Yes Smoking Status (MU): Light Every Day Tobacco Smoker Type: Cigarettes Amount Used/How Often: 3-4 CIGS/DAY Length of Time of Smoking/Using Tobacco: 3+ YEARS Have You Smoked in the Last Year: Yes Review of Systems Negative: Fever Neurological: Other - confusion, memory loss All Other Systems Reviewed And Are Negative: Yes Physical Exam - Summary Physical Exam Summary: VITAL SIGNS: Reviewed. GENERAL: Patient is a well developed and nourished female who is lying comfortable in the stretcher. Patient is not in any acute respiratory distress. HEAD AND FACE: Normocephalic EYES: PERRLA, EOMI x 2. EARS: Hearing grossly intact. MOUTH: Oropharynx within normal limits. NECK: Supple, trachea is midline, no adenopathy, no JVD, no carotid bruit. CHEST: Symmetric, no tenderness at palpation LUNGS: Clear to auscultation bilaterally. No wheezing or crackles. CVS: Regular rate and rhythm, S1 and S2 present, no murmurs or gallops appreciated. ABDOMEN: Soft, non-tender. Bowel sounds are normal. No abdominal abnormal pulsations. EXTREMITIES: Full ROM in all major joints, no edema, no cyanosis or clubbing. Positive left UE with resolving hematomas. NEURO: Alert and oriented x 3. No acute neurological deficits. Speech is normal and follows commands. No hand tremors. SKIN: Dry and warm Psych: No sweating, no diaphoresis. Denies any visual, tactile, or auditory hallucinations or illusions. No psychomotor agitation. Mild anxiety. Triage Information Reviewed: Yes Vital Signs On Initial Exam: Initial Vitals Temp Pulse Resp BP Pulse Ox 97.0 F 124 20 152/90 99 01/09/17 06:31 01/09/17 06:31 01/09/17 06:31 01/09/17 06:31 01/09/17 06:31 Vital Signs Reviewed: Yes - Sammy Coma Scale Coma Scale Total: 15 Diagnostics - Vital Signs Vital Signs Temp Pulse Resp BP Pulse Ox 01/09/17 06:36 97 F 124 20 152/90 99 01/09/17 06:31 97.0 F 124 20 152/90 99 - Laboratory Lab Results: Lab Results 01/09/17 Range/Units 07:06 WBC 5.0 (3.5-10.8) 10^3/ul RBC 3.84 L (4.0-5.4) 10^6/ul Hgb 13.5 (12.0-16.0) g/dl Hct 39 (35-47) % MCV 101 H (80-97) fL MCH 35 H (27-31) pg MCHC 35 (31-36) g/dl RDW 13 (10.5-15) % Plt Count 207 (150-450) 10^3/ul MPV 8 (7.4-10.4) um3 Neut % (Auto) 64.9 (38-83) % Lymph % (Auto) 18.9 L (25-47) % Ingham % (Auto) 13.4 H (1-9) % Eos % (Auto) 1.7 (0-6) % Baso % (Auto) 1.1 (0-2) % Absolute Neuts (auto) 3.2 (1.5-7.7) 10^3/ul Absolute Lymphs (auto) 0.9 L (1.0-4.8) 10^3/ul Absolute Monos (auto) 0.7 (0-0.8) 10^3/ul Absolute Eos (auto) 0.1 (0-0.6) 10^3/ul Absolute Basos (auto) 0.1 (0-0.2) 10^3/ul Absolute Nucleated RBC 0.01 10^3/ul Nucleated RBC % 0.2 Result Diagrams: 01/09/17 07:06 01/09/17 07:06 Lab Statement: Any lab studies that have been ordered have been reviewed, and results considered in the medical decision making process. - EKG 0827 Cardiac Rate: NL EKG Rhythm: Sinus Rhythm - [address] Segment: Normal Re-Evaluation - Re-Evaluation First Eval Re-Evaluation Time: 08:19 Course/Dx - Course Course Of Treatment: 26 y/o female presents to the ED seeking mental evaluation following late stage alcohol withdrawal symptoms. Pt states that she has been alcohol free for 4 days and no longer feels any physical withdrawal symptoms. However, she does report feeling confusion, short-term memory loss, and delirium -like symptoms for the past 2 days, especially in the mornings. PMHx includes bipolar disorder, reduced liver enzymes, low and high BP, and mitral valve disorder. Pt currently smokes 1/3 ppd. While drinking, pt reports drinking approximately 4-6 ETOH drinks per day for almost a year. Assessment/Plan: Blood work within normal limits except hypocalcemia Calcium 9.8 and Magnesium 1.2 L. Pt was given magnesium and potassium. Pt is medically cleared and awaiting MHU evaluation. Discussed case with Dr. Bergman (Psych) who assessed and examined pt. He recomendedd pt be given Ativan and Haldol and to keep the pt until 0630 tomorrow if possible. Pt will be discharged to alcohol withdrawal and detox program. At this point alert and oriented x3 and hemodynamically stable. 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 Patient will be signed out to Next ER attending. 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 Bergman (Psychiatrics) @ 0800 Discharge - Discharge Plan Condition: Stable Disposition: OTHER Discharge Disposition Comment: Patient will be signed out to next ER attending. Referrals: Robbin Rosa MD [Primary Care Provider] - The documentation as recorded by the Jacqueline marques Alok accurately reflects the service I personally performed and the decisions made by me, Samuel Gustafson MD.
[2017-01-09] MEDS ORDERED: Diazepam SYRINGE* 5 MG/ML SYRINGE IV ONE (18:10)
[2017-01-09] MEDS ORDERED: NS 0.9% 1000 ML* 1,000 ML IV ONE (18:11)
[2017-01-09] MEDS ORDERED: NS 0.9% 1000 ML* 2,000 ML IV ONE (18:16)
[2017-01-09] MEDS ORDERED: Ondansetron INJ* 2 MG/ML VIAL IV PRN (18:16)
[2017-01-09] MEDS ORDERED: Acetaminophen TAB* 325 MG PO PRN (18:16)
[2017-01-09] MEDS ORDERED: Thiamine IV* 100 MG/ML 2 ML VIAL IV ONE (18:19)
[2017-01-09] MEDS ORDERED: diPHENhydraMINE PO* 25 MG PO PRN (18:26)
--- NOTE | 2017-01-09 18:34 | ED ---
IJacqueline Alok, scribed for Samuel Gustafson MD on 01/09/17 at 1824 . Progress - Progress Note Progress Note: Since MHU evaluation, discussed case with Dr. Napier (Hospitalist) @ 182 who will admit Pt - Consult/PCP Time Called: 09:30 Re-Evaluation - Re-Evaluation First Eval Re-Evaluation Time: 08:19 Course/Dx - Course Course Of Treatment: During the stay in the Flex unit the patient became more confused, developed visual and auditory hallucinations and agitated. I re- evaluated the patient and she is more anxious still very cooperative but she has developed more tremors in her hand. I believe she is showing signs of alcohol withdrawal. Therefore she was brought back to the ED to room 8. We obtained an IV access and she was given valium. She seems to be more calm. I discussed the case with Dr. Napier and he accepted the patient for admission. She hemodynamically stable. 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 Bergman (Psychiatrics) @ 0800. Dr. Napier (Hospitalist) @ 1823 - Will admit Pt The documentation as recorded by the darinelibJacqueline talamantes Alok accurately reflects the service I personally performed and the decisions made by me, Samuel Gustafson MD.
[2017-01-09] MEDS ORDERED: LORazepam INJ* 2 MG/ML 1 ML VIAL IV SCH (19:00)
[2017-01-09] MEDS ORDERED: Amitriptyline TAB* 25 MG PO SCH (21:00)
[2017-01-09] MEDS: Potassium Chlor TAB* 20 MEQ TAB.ER PO SCH (21:59)
[2017-01-09] MEDS: LAMOTRIGINE 100 MG PO SCH (21:59)
[2017-01-09] MEDS: Heparin VIAL(*) 5000 UNITS/ML VIAL (FIVE THOUSAND) SUBCUT SCH (21:59)
[2017-01-10] MEDS: Heparin VIAL(*) 5000 UNITS/ML VIAL (FIVE THOUSAND) SUBCUT SCH ×3 (05:30→21:05)
[2017-01-10 06:10] LABS: Hematocrit 36 % (35-47); Hemoglobin 12.4 g/dl (12.0-16.0); Mean Corpuscular HGB Conc 34 g/dl (31-36); Mean Corpuscular Hemoglobin 35 pg (27-31); Mean Corpuscular Volume 102 fL (80-97); Mean Platelet Volume 7 um3 (7.4-10.4); Red Blood Count 3.58 10^6/ul (4.0-5.4); Red Cell Distribution Width 13 % (10.5-15); White Blood Count 4.1 10^3/ul (3.5-10.8)
[2017-01-10 06:28] LABS: Albumin 3.7 g/dL (3.2-5.2); BUN/Creatinine Ratio 9.8 (8-20); Calcium 8.6 mg/dL (8.6-10.3); Direct Bilirubin 0.3 mg/dL (0.03-0.18); EGFR African American 150.2 (>60); EGFR Non-African American 116.8 (>60); Globulin 2.7 g/dL (2-4); Indirect Bilirubin 0.8 mg/dL (0.3-1.0); Potassium 3.4 mmol/L (3.5-5.0); Total Bilirubin 1.1 mg/dL (0.2-1.0); Total Protein 6.4 g/dL (6.4-8.9)
[2017-01-10] MEDS ORDERED: Potassium Chlor TAB* 20 MEQ TAB.ER PO ONE (08:25)
[2017-01-10] MEDS: Multivitamins/Minerals TAB PO SCH (09:55)
[2017-01-10] MEDS: LAMOTRIGINE 100 MG PO SCH ×2 (09:57→20:38)
[2017-01-10] MEDS: Folic Acid TAB* 1 MG PO SCH (09:57)
[2017-01-10] MEDS: Thiamine TAB* 100 MG TAB PO SCH (09:57)
[2017-01-10] MEDS: Potassium Chlor TAB* 20 MEQ TAB.ER PO SCH ×2 (10:00→21:04)
--- NOTE | 2017-01-10 19:24 | PN ---
Subjective Date of Service: 01/10/17 Interval History: . + hallucinations this AM - scoring on WAM slept subsequently parents in for long discussion plan for psych consult this weekend and then rehab vs U. had conversation later with patient about need to stay. 30 minutes spent explaining medical decision making for psych c/s then rehab -- concept of etoh withdrawal, risks of leaving AMA...she is OK staying now. In general, she DOES NOT currently have capacity to opt for discharge. Exhibiting VERY risky behavior and this is potentially attributable to her bipolar disease. needs psych c/s before she can go anywhere. . Family History: Unchanged from Admission Social History: Unchanged from Admission Past Medical History: Unchanged from Admission Objective Active Medications: . Acetaminophen (Tylenol Tab*) 650 mg PO Q4H PRN PRN Reason: FEVER/PAIN Amitriptyline HCl (Elavil Tab*) 25 mg PO BEDTIME [facility] Last Admin: 01/09/17 21:58 Dose: Not Given Diphenhydramine HCl (Benadryl Po*) 25 mg PO Q6H PRN PRN Reason: ITCHING Folic Acid (Folvite Tab*) 1 mg PO DAILY [facility] Last Admin: 01/10/17 09:57 Dose: 1 mg Heparin Sodium (Porcine) (Heparin Vial(*)) 5,000 units SUBCUT Q8HR [facility] Last Admin: 01/10/17 14:17 Dose: Not Given Lamotrigine (Lamictal Xr (Nf)) 100 mg PO BID [facility] Last Admin: 01/10/17 09:57 Dose: 100 mg Lorazepam (Ativan Inj*) 0 mg IV .PER WAM SCORE [facility] PRN Reason: Protocol Last Admin: 01/09/17 20:10 Dose: 4 mg Midodrine (Midodrine (Nf)) 5 mg PO 0800,1600 [facility] PRN Reason: Protocol Multivitamins/Minerals (Theragran/Minerals Tab*) 1 tab PO DAILY [facility] Last Admin: 01/10/17 09:55 Dose: 1 tab Ondansetron HCl (Zofran Inj*) 4 mg IV Q4H PRN PRN Reason: NAUSEA/VOMITING Potassium Chloride (Klor Con Er Tab*) 20 meq PO BID [facility] Last Admin: 01/10/17 10:00 Dose: 20 meq Temazepam (Restoril Cap*) 30 mg PO BEDTIME PRN PRN Reason: INSOMNIA Thiamine HCl (Vitamin B-1 Tab*) 100 mg PO DAILY [facility] Last Admin: 01/10/17 09:57 Dose: 100 mg . Vital Signs 01/09/17 01/09/17 01/09/17 19:53 20:00 20:05 Temperature Pulse Rate 89 Respiratory 18 20 18 Rate Blood Pressure 151/108 (mmHg) O2 Sat by Pulse 98 Oximetry 01/09/17 01/09/17 01/09/17 20:10 21:10 22:00 Temperature Pulse Rate Respiratory 18 18 20 Rate Blood Pressure (mmHg) O2 Sat by Pulse Oximetry Appearance: sleeping often, trmeulous. Eyes: No Scleral Icterus Ears/Nose/Mouth/Throat: Clear Oropharnyx Neck: Trachea Midline Respiratory: Symmetrical Chest Expansion and Respiratory Effort Cardiovascular: NL Sounds; No Murmurs; No JVD Abdominal: NL Sounds; No Tenderness; No Distention Extremities: - - tremulous, diaphoretic Skin: No Rash or Ulcers, - - diaphoretic, warm Neurological: - - often hallucinating Lines/Tubes/Other Access: Clean, Dry and Intact Peripheral IV Nutrition: Taking PO's Result Diagrams: 01/10/17 05:52 01/10/17 05:52 Additional Lab and Data: . Assess/Plan/Problems-Billing . Assessment: 26 yo female with acute alcohol withdrawal and perhaps suboptimally treated bipolar -- complex admission for etoh withdrawal management and psych evaluation and potentially etoh rehabilitation placement. . - Patient Problems (1) Alcohol withdrawal hallucinosis Current Visit: Yes Status: Acute Priority: High Code(s): F10.232 - ALCOHOL DEPENDENCE W WITHDRAWAL WITH PERCEPTUAL DISTURBANCE Comment: - WAM protocol with ativan Q4. - Aggressive IVF - MVI, thaimine, folic acid - 1:1 safety monitoring. - psych consult when clear (called)
[2017-01-10] MEDS ORDERED: Magnesium Oxide TAB* 400 MG PO ONE (20:42)
[2017-01-10] MEDS ORDERED: Lamotrigine XR (NF) 100 MG TAB PO SCH (21:00)
[2017-01-10] MEDS ORDERED: Magnesium Oxide TAB* 400 MG ONE (21:01)
[2017-01-10] MEDS: Amitriptyline TAB* 25 MG PO SCH (21:03)
[2017-01-10 21:09] LABS: Magnesium 1.5 mg/dL (1.9-2.7)
--- NOTE | 2017-01-10 21:20 | HP ---
CC: Dr. Rjei Rosa, [facility] HISTORY AND PHYSICAL: DATE OF ADMISSION: 01/09/17 TIME OF MY EVALUATION: 7 p.m. PRIMARY CARE PROVIDER: Dr. Reji Rosa, [facility]. CHIEF COMPLAINT: Reported by ED - late stage alcohol withdrawal and hallucinations. HISTORY OF PRESENT ILLNESS: Ms. Nunez is an unfortunate 26-year-old woman who came to the emergency room seeking mental health evaluation following late stage alcohol withdrawal symptoms. The patient most recently was drinking heavily on January 05. Her last drink was that evening. She has been alcohol free for several days and was reporting confusion, short-term memory loss, and delirium-like symptoms over the past 48 hours. She has been worse in the mornings. It seems she has got suboptimally treated bipolar disorder and she has been drinking alcohol as an effort to treat these. The patient was being evaluated for rehabilitation possibilities in the area when her withdrawal symptoms became more severe and the emergency room redirected her to the medical service from the behavioral health unit. PAST MEDICAL HISTORY: 1. Bipolar disorder. 2. Mitral valve disease (suspect prolapse). 3. Known right bundle branch block vs intraventricular conduction delay -- ( later was evident in her EKG today). 4. Neurocardiogenic syncope. 5. Postural orthostatic tachycardia syndrome and orthostatic hypotension. PAST SURGICAL HISTORY: Includes status post excision of a lesion from the patient's left upper extremity. HOME MEDICATIONS: 1. Lamictal 100 mg by mouth twice daily. 2. Midodrine 5 mg by mouth 0800 hours and 1600 hours. 3. Amitriptyline 25 mg by mouth at bedtime. 4. Lamotrigine 100 mg by mouth twice daily. 5. Potassium 20 mEq by mouth twice daily. 6. Diphenhydramine 25 mg by mouth every 6 hours p.r.n. anxiety/itching. ALLERGIES: No known drug allergies. FAMILY HISTORY: The patient denied a history of coronary disease or diabetes. It was a difficult exam secondary to the patient's delirium. SOCIAL HISTORY: The patient is smoking approximately 5 cigarettes per day and has done so for many years. The patient is drinking alcohol heavily, I do not have an exact quantity. The patient works fulltime at [employer] and the patient's mother, Clyde Nunez, is her surrogate decision maker and is present along with the patient's father, Gopi. There is no evidence or report of any illicit drugs beyond her alcohol use. The patient has a young daughter. REVIEW OF SYSTEMS: A review of 14 systems was accomplished at the bedside with the help of the patient's father. This was largely negative except for the pertinent positives as mentioned in the HPI and past medical history. PHYSICAL EXAMINATION GENERAL APPEARANCE: Young woman appears stated age in no apparent distress at this time subsequent to receiving Ativan. I did not see her beforehand, but was by report delirious and agitated. VITAL SIGNS: On admission, temperature 97 degrees Fahrenheit; pulse initially 124, down to 70s with Ativan and hydration; respirations 20; oxygen saturation 99% on room air. Blood pressure 152/90, down to 121/88 with Ativan therapy for withdrawal. HEENT: Oropharynx is clear. Mucous membranes are moist. NECK: Supple. No elevated JVD. Midline trachea. Normal thyroid. No carotid bruits. LUNGS: Clear anteriorly and posteriorly. HEART: Tachycardic, but no murmurs appreciated. ABDOMEN: Soft and nontender. SKIN: Diaphoretic but intact and well perfused. EXTREMITIES: No clubbing, cyanosis, or edema. She is tremulous. NEUROLOGIC: Difficult to assess secondary to acute alcohol withdrawal. Tremulous, certainly hyperreflexic. Sensory and motor function difficult to assess secondary to delirium. PSYCH: Agitated and delirious at this time. Seeing people in the room that are not there. LABORATORY DATA: White blood cell count 5, hemoglobin 13.5, platelets 207. Blood chemistries remarkable for low potassium at 3.2, chloride 98, anion gap 13 with a normal BUN to creatinine ratio. Magnesium low at 1.2. Total bilirubin 1.2. AST and ALT are 181 and 167 respectively. Preserved albumin of 4.6. TSH 2.15. Beta HCG negative. Urinalysis with 1+ white blood cells by microscopy, trace ketones, 1+ blood. Toxicology negative for illicit substances screened. Serum alcohol level less than 10. IMPRESSION: Ms. Nunez is a 26-year-old female with a history of bipolar disorder suboptimally treated with concurrent alcohol abuse and addiction and the patient now in acute alcohol withdrawal. The patient is being admitted to the hospitalist service, will be placed on a non-telemetry floor and aggressively rehydrated and monitored by a [facility] protocol - alcohol withdrawal management - Ativan by IV route. Continue nutritional efforts including multivitamin, thiamine, and folic acid. Ensure adequate hydration. Ativan per [facility] protocol. Nurse rechecks every 2 to 4 hours. One-to-one monitor until the patient is not actively having withdrawal /hallucinations - bed monitor in place. Continue outpatient medications as long as the patient can tolerate them. Medication reconciliation is underway. Surrogate decision maker is the patient's mother and her father is also present. Psychiatry consultation requested to explore question of bipolar management -- there was a report of a halving of one of her medications and there has not been close outpatient psychiatry followup in the past few months... TIME SPENT: Total time taken to admit Ms. Nunez was 75 minutes, greater than half that time spent going over the admission plan with the patient's family. [id number]/CPS #: [id number] MTDD
[2017-01-11] MEDS: Temazepam CAP* 15 MG PO PRN (00:24)
[2017-01-11] MEDS: Heparin VIAL(*) 5000 UNITS/ML VIAL (FIVE THOUSAND) SUBCUT SCH ×3 (07:09→20:59)
[2017-01-11] MEDS: Midodrine (NF) 5 MG TAB PO SCH ×3 (09:44→15:32)
[2017-01-11] MEDS: LAMOTRIGINE 100 MG PO SCH ×2 (09:44→19:43)
[2017-01-11] MEDS: Multivitamins/Minerals TAB PO SCH (09:46)
[2017-01-11] MEDS: Thiamine TAB* 100 MG TAB PO SCH (09:47)
[2017-01-11] MEDS: Folic Acid TAB* 1 MG PO SCH (09:48)
[2017-01-11] MEDS ORDERED: Magnesium Oxide TAB* 400 MG PO ONE (11:00)
[2017-01-11] MEDS: Potassium Chlor TAB* 20 MEQ TAB.ER PO SCH ×2 (11:50→20:59)
--- NOTE | 2017-01-11 13:10 | PN ---
Subjective Date of Service: 01/11/17 Interval History: . pt in better condition today. Psychiatry in to evaluate -- plans are in progress. not scoring on WAM over last day. mag repleted orally. Family History: Unchanged from Admission Social History: Unchanged from Admission Past Medical History: Unchanged from Admission Objective Active Medications: . Acetaminophen (Tylenol Tab*) 650 mg PO Q4H PRN PRN Reason: FEVER/PAIN Amitriptyline HCl (Elavil Tab*) 12.5 mg PO BEDTIME [facility] Last Admin: 01/10/17 21:03 Dose: 12.5 mg Diphenhydramine HCl (Benadryl Po*) 25 mg PO Q6H PRN PRN Reason: ITCHING Folic Acid (Folvite Tab*) 1 mg PO DAILY [facility] Last Admin: 01/11/17 09:48 Dose: 1 mg Heparin Sodium (Porcine) (Heparin Vial(*)) 5,000 units SUBCUT Q8HR [facility] Last Admin: 01/11/17 07:09 Dose: Not Given Lamotrigine (Lamictal Xr (Nf)) 100 mg PO BID [facility] Last Admin: 01/11/17 09:44 Dose: 100 mg Lorazepam (Ativan Inj*) 0 mg IV .PER WAM SCORE [facility] PRN Reason: Protocol Last Admin: 01/09/17 20:10 Dose: 4 mg Midodrine (Midodrine (Nf)) 5 mg PO 0800,1600 [facility] PRN Reason: Protocol Last Admin: 01/11/17 09:44 Dose: 2.5 mg Multivitamins/Minerals (Theragran/Minerals Tab*) 1 tab PO DAILY [facility] Last Admin: 01/11/17 09:46 Dose: 1 tab Ondansetron HCl (Zofran Inj*) 4 mg IV Q4H PRN PRN Reason: NAUSEA/VOMITING Potassium Chloride (Klor Con Er Tab*) 20 meq PO BID [facility] Last Admin: 01/11/17 11:50 Dose: 20 meq Temazepam (Restoril Cap*) 30 mg PO BEDTIME PRN PRN Reason: INSOMNIA Last Admin: 01/11/17 00:24 Dose: 30 mg Thiamine HCl (Vitamin B-1 Tab*) 100 mg PO DAILY [facility] Last Admin: 01/11/17 09:47 Dose: 100 mg . Vital Signs 01/10/17 01/10/17 01/10/17 14:00 15:59 18:23 Temperature 98.0 F 98.3 F Pulse Rate 79 89 Respiratory 16 16 16 Rate Blood Pressure 136/83 133/88 (mmHg) O2 Sat by Pulse 99 99 Oximetry 01/10/17 01/10/17 01/10/17 19:55 20:00 21:59 Temperature 98.1 F 98.2 F Pulse Rate 92 109 Respiratory 16 16 Rate Blood Pressure 126/78 141/85 (mmHg) O2 Sat by Pulse 98 99 Oximetry 01/11/17 01/11/17 01/11/17 00:14 04:21 07:18 Temperature 97.9 F 98.3 F Pulse Rate 129 105 77 Respiratory 16 16 Rate Blood Pressure 134/79 133/81 115/73 (mmHg) O2 Sat by Pulse 100 99 99 Oximetry Appearance: NAD Ears/Nose/Mouth/Throat: NL Teeth, Lips, Gums Neck: NL Appearance and Movements; NL JVP Respiratory: Symmetrical Chest Expansion and Respiratory Effort Cardiovascular: NL Sounds; No Murmurs; No JVD Abdominal: NL Sounds; No Tenderness; No Distention Extremities: No Edema Skin: No Rash or Ulcers Neurological: Alert and Oriented x 3 Lines/Tubes/Other Access: Clean, Dry and Intact Peripheral IV Nutrition: Taking PO's Result Diagrams: 01/10/17 05:52 01/10/17 05:52 Additional Lab and Data: . Assess/Plan/Problems-Billing . Assessment: 26 yo female with acute alcohol withdrawal and perhaps suboptimally treated bipolar -- complex admission for etoh withdrawal management and psych evaluation and potentially etoh rehabilitation placement. . - Patient Problems (1) Alcohol withdrawal hallucinosis Current Visit: Yes Status: Acute Priority: High Code(s): F10.232 - ALCOHOL DEPENDENCE W WITHDRAWAL WITH PERCEPTUAL DISTURBANCE Comment: - WAM protocol with ativan Q4. - Aggressive IVF (stopped) - MVI, thaimine, folic acid - 1:1 safety monitoring. - psych consult when clear (called)
[2017-01-11] MEDS: Gabapentin CAP(*) 300 MG PO SCH ×2 (14:45→19:41)
[2017-01-11] MEDS ORDERED: Nicotine GUM* 2 MG PO PRN (14:58)
[2017-01-11] MEDS: Nicotine PATCH 14 MG/24 HR* PATCH TRANSDERM SCH (15:33)
[2017-01-11] MEDS: Nicotine Inhaler* 10 MG AMP INH PRN ×2 (15:33→19:40)
[2017-01-11] MEDS ORDERED: Mouth Piece, Nicotine* 1 EACH CARTRIDGE INH ONE (16:00)
--- NOTE | 2017-01-11 16:53 | CONS ---
PSYCHIATRY CONSULTATION: DATE OF CONSULT: 01/11/17 PRESENTING PROBLEM: 26yo female with a history of Bipolar II disorder and alcohol use disorder admitted to the Medicine Service for acute alcohol withdrawal. Her mother, Ester Blanco, was present for the interview per the patient' s request. She offered some insight and provided some collateral information. She was seen in the ER for a mental health evaluation and Dr. Ro was providing recommendations for alcohol withdrawal protocol. There was concern about acute alcohol withdrawal and she was admitted to the Medicine Service on January 09. Hospital records indicate she last drank on Friday evening. Notes indicate severe symptoms of alcohol withdrawal, including confusion, memory loss , delirium, with visual hallucinations. Psychiatry Consult was called for recommendations for mental health and substance abuse treatment. Her drug of choice is alcohol. She started drinking regularly about 2-1/2 years ago. She has been drinking, mostly in secret, roughly 4-6 drinks a day of liquor for the last 2 years. Her boyfriend expressed concern to her family about her use over the last couple of months and the boyfriend ended the relationship over the weekend. [facility]. She stopped drinking on Friday. Prior to this week, the longest period of sobriety over the last 2-1/2 years was 2-3 days. She struggled with symptoms of withdrawal in the past, including nausea, tremor and anxiety, but never had symptoms of psychosis or delirium as she did the last couple of days. She engaged with substance abuse treatment for the first time this week. [facility] with an interview scheduled for Friday (about potential admission). She went to Friday through Friday. On , she was reporting hallucinations and delusions and came into the hospital. I used an NE approach to talk about the positive and negative aspects of her drinking. We also talked about steps moving forward and potential treatment options. Her current goal is sobriety. She reports being diagnosed with bipolar II disorder roughly 6 years ago when she was in [place]. She was started on lamotrigine and found that it significantly decreased symptoms of hypomania. She wonders if her recent alcohol use may have been, in part, to treat her bipolar disorder. However, she denies any hypomanic symptoms in the last several years. She denies ever having symptoms of jim. She does report some mood swings recently, but is vague with details. Her mood was "iffy" when she was drinking, but she notes an acute improvement in her mood in the last 2 days. Over the last couple of months, she would rate her depression as a 4-6/10 (10 being the worst). She denies any recent anhedonia. She reports feelings of guilt. She was sleeping 6-8 hours a night when drinking, but has not slept much in the last couple of days. Daytime energy has been relatively stable. She does not typically eat full meals, tends to snack throughout the day. She has not eaten anything in 2 days. She tends to eat less when stressed. She denies history of anorexia or bulimia. She denies acute changes in weight recently. She is hopeful for the future and denies suicidal thoughts. We talked about recent stressors-- including her boyfriend leaving her on Friday. Mother provided collateral that the boyfriend reported that the patient drove while intoxicated with her 4-year-old daughter in the car. She denies chronic problems with excessive worry, fears or panic. She denies a history of trauma. She denies past symptoms consistent with psychosis, but does note recent paranoia, delusions and hallucinations. These symptoms have resolved in the last day. PAST PSYCHIATRIC HISTORY: INPATIENT: Denies. OUTPATIENT: Psychiatrist and therapist in [place], [place]. Has not had mental health treatment in 3 years. PAST PSYCHIATRIC DIAGNOSIS: Dxed with Bipolar II disorder at the [facility] in [place], [place]. PAST PSYCHIATRIC MEDICATIONS: Tried 1 antidepressant but does not recall the name. PAST SUICIDE OR SELF-HARM: Denies. LEGAL HISTORY: Denies. Denies history of violence. SUBSTANCE USE: See above regarding alcohol use. She tried cannabis a couple of times but never used regularly. Denies any other illicit drug use. Denies misusing [id number] or prescription drugs. Smokes a third of a pack of cigarettes a day. Denies ever getting any substance abuse treatment. FAMILY PSYCHIATRIC HISTORY: Denies. No known family history of suicides. PAST MEDICAL HISTORY: 1. Mitral valve disease. 2. Right bundle-branch block. 3. Neurocardiogenic syncope. 4. Postural orthostatic tachycardia syndrome and orthostatic hypotension. 5. Denies history of head injuries. 6. Denies history of seizures. LMP: One month ago. CONTROL: Denies. PRIMARY MEDICAL DOCTOR: Dr. Rosa at [facility]. SURGICAL HISTORY: Excision of lesion from left upper extremity. MEDICATIONS PRIOR TO ADMISSION: 1. Lamotrigine 100 mg p.o. b.i.d. 2. Midodrine 5 mg b.i.d. 3. Amitriptyline 12.5 mg p.o. q.h.s. for migraines. 4. Potassium 20 mEq b.i.d. 5. Diphenhydramine 25 mg q.6 hours p.r.n. itching. CURRENT MEDS: 1. Folic acid. 2. Ativan p.r.n. She did receive 4 mg of Ativan on 01/09, but nothing since. 3. Zofran p.r.n. 4. Temazepam p.r.n. 5. Thiamine. ALLERGIES: No known drug allergies. SOCIAL HISTORY: [place] in [place] and lived in various parts of [place] growing up. Raised by both parents and has a younger brother. Graduated from high school and completed 3 quarters of bachelors degree, but dropped out after having a baby. Has a 4-year-old daughter. Never been . Recently broke up with boyfriend of 1 year. 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 Needs to find new housing as she currently lives in a house that her ex-boyfriend owns. REVIEW OF SYSTEMS: Please see Medicine notes. PHYSICAL EXAM: Vitals: See chart, Medicine Notes MENTAL STATUS EXAM: female that appears her stated age. Tattoos. Good eye contact. Cooperative and engaged. Talks quickly. Mood is described as "better" and affect is mildly inpatient. Thought process: mostly linear, logical, goal oriented. Thought content: no active SI or psychosis. Concentration: below average. Memory: below average. Insight and judgment: below average. LABORATORY DATA: See chart. Labs are significant for elevated LFTs and electrolyte abnormalities, also some CBC abnormalities. FORMULATION AND ASSESSMENT: 26yo female with a history of Bipolar II disorder and alcohol use disorder admitted to the Medicine Service for acute alcohol withdrawal. At this point, she is interested in being sober moving forward. We talked about various inpatient and outpatient substance abuse treatment options. See below for my recommendations. DSM-V DIAGNOSES: 1. Substance-induced mood disorder. 2. Alcohol use disorder, severe. 3. Alcohol withdrawal. 4. Bipolar II disorder. PLAN/RECOMMENDATIONS: 1. Continue vitamin B1 and folic acid for alcohol use disorder. 2. Recommend continuing lorazepam p.r.n. for withdrawal/detox 3. She is currently taking lamotrigine 100 mg twice a day for bipolar II disorder. She is at risk for an extended alcohol withdrawal symptoms (anxiety, mood lability, irritability, insomnia). The two main medications that are used for this are Depakote 500 mg p.o. t.i.d. and gabapentin 600 mg p.o. t.i.d. I think she could benefit from one of these medications. Unfortunately, Lamictal has significant drug-drug interactions with Depakote (causes decrease in Depakote levels and increase in lamotrigine levels). Depakote may provide best "two for one" approach as it could help with Bipolar II and extended alcohol withdrawal. However, since it takes time to taper down/off Lamictal, I recommend using Gabapentin. I recommend adding gabapentin 600 mg p.o. t.i.d. as it does not have major drug-drug interaction with lamotrigine. 4. I also recommend starting a medication for addiction in the near future (ie when in Rehab, in 1-2 weeks). We talked about Antabuse and naltrexone. The patient likes the philosophy behind Antabuse. I think it would be reasonable to start Antabuse 500 mg daily in the coming weeks. Given acute physical/GI distress that occurs if someone drinks when taking Antabuse, I requested that Medicine consult with Cardiology to see if they would support Antabuse at this time. If Cardiology dose not, then I would recommend starting naltrexone in the near future. 5. Recommend that she goes to [facility] for Rehab and then transfer to intensive outpatient treatment. 6. I also recommend that patient reestablish outpatient mental health providers to manage her bipolar II disorder. 7. Given potentially new information (see HPI), CPS should be contacted. I spoke with Dr. Napier and recommended that he alert social service coordinator about this. 8. She does not meet criteria for psychiatric hospitalization at this time and I recommend discharging her when medically cleared. Ideally, it would be nice to go to [id number] to Rehab, but her medical condition may not warrant extended hospitalization. Please call with any further questions or concerns.Thank you for this interesting consult. [id number]/[facility] #: [id number] CRISTY
[2017-01-11] MEDS: Amitriptyline TAB* 25 MG PO SCH (19:41)
[2017-01-11] MEDS: Nicotine Patch Removal NOTE FOLLOW UP SCH (20:16)
[2017-01-11] MEDS: Magnesium Oxide TAB* 400 MG PO SCH (20:59)
[2017-01-12] MEDS: Heparin VIAL(*) 5000 UNITS/ML VIAL (FIVE THOUSAND) SUBCUT SCH ×3 (04:55→20:10)
[2017-01-12 06:32] LABS: BUN/Creatinine Ratio 10.5 (8-20); Calcium 9.2 mg/dL (8.6-10.3); EGFR African American 116.5 (>60); EGFR Non-African American 90.6 (>60); Magnesium 2.1 mg/dL (1.9-2.7); Phosphorus 3.7 mg/dL (2.5-5.0); Potassium 4.2 mmol/L (3.5-5.0)
[2017-01-12] MEDS: LAMOTRIGINE 100 MG PO SCH ×2 (08:19→20:06)
[2017-01-12] MEDS: Thiamine TAB* 100 MG TAB PO SCH (08:20)
[2017-01-12] MEDS: Folic Acid TAB* 1 MG PO SCH (08:20)
[2017-01-12] MEDS: Midodrine (NF) 5 MG TAB PO SCH ×2 (08:21→16:30)
[2017-01-12] MEDS: Multivitamins/Minerals TAB PO SCH (08:21)
[2017-01-12] MEDS: Magnesium Oxide TAB* 400 MG PO SCH (08:22)
[2017-01-12] MEDS: Gabapentin CAP(*) 300 MG PO SCH ×3 (08:22→20:05)
[2017-01-12] MEDS: Potassium Chlor TAB* 20 MEQ TAB.ER PO SCH ×2 (08:22→20:05)
[2017-01-12] MEDS: Nicotine Inhaler* 10 MG AMP INH PRN ×4 (08:23→20:06)
[2017-01-12] MEDS: Nicotine PATCH 14 MG/24 HR* PATCH TRANSDERM SCH (16:29)
--- NOTE | 2017-01-12 16:43 | PN ---
Subjective Date of Service: 01/12/17 Interval History: . long conversation with patient and her mom tentative plan to dc to [facility] on friday for etoh rehab. patient with bipolar and no real home to go to before then. daughter is being cared for by mother/grandmother. SW to re-engage tomorrow AM. dc 1:1 now ok to walk in hospital regular diet continue current meds dc WAM (off) no labs - all wnl recently coninuing vitamins/nutrition. . Family History: Unchanged from Admission Social History: Unchanged from Admission Past Medical History: Unchanged from Admission Objective Active Medications: . Acetaminophen (Tylenol Tab*) 650 mg PO Q4H PRN PRN Reason: FEVER/PAIN Amitriptyline HCl (Elavil Tab*) 12.5 mg PO BEDTIME [facility] Last Admin: 01/11/17 19:41 Dose: 12.5 mg Diphenhydramine HCl (Benadryl Po*) 25 mg PO Q6H PRN PRN Reason: ITCHING Folic Acid (Folvite Tab*) 1 mg PO DAILY [facility] Last Admin: 01/12/17 08:20 Dose: 1 mg Gabapentin (Neurontin Cap(*)) 600 mg PO TID [facility] Last Admin: 01/12/17 13:39 Dose: 600 mg Heparin Sodium (Porcine) (Heparin Vial(*)) 5,000 units SUBCUT Q8HR [facility] Last Admin: 01/12/17 13:42 Dose: Not Given Lamotrigine (Lamictal Xr (Nf)) 100 mg PO BID [facility] Last Admin: 01/12/17 08:19 Dose: 100 mg Lorazepam (Ativan Inj*) 0 mg IV .PER WAM SCORE [facility] PRN Reason: Protocol Last Admin: 01/09/17 20:10 Dose: 4 mg Magnesium Oxide (Magox 400 Tab*) 400 mg PO DAILY [facility] Last Admin: 01/12/17 08:22 Dose: 400 mg Midodrine (Midodrine (Nf)) 2.5 mg PO 0800,1600 [facility] PRN Reason: Protocol Last Admin: 01/12/17 16:30 Dose: 2.5 mg Multivitamins/Minerals (Theragran/Minerals Tab*) 1 tab PO DAILY [facility] Last Admin: 01/12/17 08:21 Dose: 1 tab Nicotine (Nicotine Inhaler*) 10 mg INH Q2H PRN PRN Reason: CRAVING Last Admin: 01/12/17 16:29 Dose: 10 mg Nicotine (Nicotine Patch 14 Mg/24 Hr*) 1 patch TRANSDERM DAILY [facility] Last Admin: 01/12/17 16:29 Dose: 1 patch Nicotine Polacrilex (Nicotine Gum*) 2 mg PO Q2H PRN PRN Reason: CRAVING Ondansetron HCl (Zofran Inj*) 4 mg IV Q4H PRN PRN Reason: NAUSEA/VOMITING Pharmacy Profile Note (Nicotine Patch Removal Note*) 1 note FOLLOW UP 2100 [facility] Last Admin: 01/11/17 20:16 Dose: Not Given Potassium Chloride (Klor Con Er Tab*) 20 meq PO BID [facility] Last Admin: 01/12/17 08:22 Dose: 20 meq Temazepam (Restoril Cap*) 30 mg PO BEDTIME PRN PRN Reason: INSOMNIA Last Admin: 01/11/17 00:24 Dose: 30 mg Thiamine HCl (Vitamin B-1 Tab*) 100 mg PO DAILY [facility] Last Admin: 01/12/17 08:20 Dose: 100 mg . Vital Signs 01/11/17 01/11/17 01/11/17 16:45 19:09 19:34 Temperature 98.4 F Pulse Rate 98 Respiratory 18 16 16 Rate Blood Pressure 143/90 (mmHg) O2 Sat by Pulse 100 Oximetry 01/11/17 01/11/17 01/11/17 19:41 20:00 21:41 Temperature Pulse Rate Respiratory 16 16 16 Rate Blood Pressure (mmHg) O2 Sat by Pulse Oximetry Oxygen Devices in Use Now: None Appearance: NAD Eyes: No Scleral Icterus Ears/Nose/Mouth/Throat: NL Teeth, Lips, Gums Neck: NL Appearance and Movements; NL JVP Respiratory: Symmetrical Chest Expansion and Respiratory Effort Cardiovascular: NL Sounds; No Murmurs; No JVD, No Edema Abdominal: NL Sounds; No Tenderness; No Distention Lymphatic: No Cervical Adenopathy Extremities: No Edema Skin: No Rash or Ulcers Neurological: Alert and Oriented x 3 Lines/Tubes/Other Access: Clean, Dry and Intact Peripheral IV Nutrition: Taking PO's Result Diagrams: 01/10/17 05:52 01/12/17 06:09 Additional Lab and Data: . Assess/Plan/Problems-Billing . Assessment: 26 yo female with acute alcohol withdrawal and perhaps suboptimally treated bipolar -- complex admission for etoh withdrawal management and psych evaluation and potentially etoh rehabilitation placement. . - Patient Problems (1) Alcohol withdrawal hallucinosis Current Visit: Yes Status: Acute Priority: High Code(s): F10.232 - ALCOHOL DEPENDENCE W WITHDRAWAL WITH PERCEPTUAL DISTURBANCE Comment: - [facility] protocol off - Aggressive IVF (stopped) - MVI, thaimine, folic acid - 1:1 safety monitoring dc'd 01/12 - psych consult appreciated - to Mami Solomon when bed available
[2017-01-12] MEDS: Amitriptyline TAB* 25 MG PO SCH (20:05)
[2017-01-12] MEDS: Nicotine Patch Removal NOTE FOLLOW UP SCH (20:11)
[2017-01-12] MEDS: Temazepam CAP* 15 MG PO PRN (21:42)
[2017-01-13] MEDS: Heparin VIAL(*) 5000 UNITS/ML VIAL (FIVE THOUSAND) SUBCUT SCH ×4 (05:34→21:02)
[2017-01-13] MEDS: LAMOTRIGINE 100 MG PO SCH ×2 (08:23→20:55)
[2017-01-13] MEDS: Nicotine Inhaler* 10 MG AMP INH PRN ×4 (08:24→19:15)
[2017-01-13] MEDS: Midodrine (NF) 5 MG TAB PO SCH ×2 (08:24→15:56)
[2017-01-13] MEDS: Magnesium Oxide TAB* 400 MG PO SCH (08:25)
[2017-01-13] MEDS: Potassium Chlor TAB* 20 MEQ TAB.ER PO SCH ×2 (08:26→20:56)
[2017-01-13] MEDS: Thiamine TAB* 100 MG TAB PO SCH (08:26)
[2017-01-13] MEDS: Folic Acid TAB* 1 MG PO SCH (08:26)
[2017-01-13] MEDS: Multivitamins/Minerals TAB PO SCH (08:26)
[2017-01-13] MEDS: Gabapentin CAP(*) 300 MG PO SCH ×3 (08:26→20:54)
[2017-01-13] MEDS: Nicotine PATCH 14 MG/24 HR* PATCH TRANSDERM SCH (08:27)
[2017-01-13] MEDS ORDERED: Pneumococcal Vac Polyvalent* 0.5 ML VIAL IM ONE (09:00)
--- NOTE | 2017-01-13 19:54 | PN ---
Subjective Date of Service: 01/13/17 Interval History: . no new s/sx eager for dc to [facility] tomorrow AM. dc prepared today. . Family History: Unchanged from Admission Social History: Unchanged from Admission Past Medical History: Unchanged from Admission Objective Active Medications: . Acetaminophen (Tylenol Tab*) 650 mg PO Q4H PRN PRN Reason: FEVER/PAIN Amitriptyline HCl (Elavil Tab*) 12.5 mg PO BEDTIME [facility] Last Admin: 01/12/17 20:05 Dose: 12.5 mg Diphenhydramine HCl (Benadryl Po*) 25 mg PO Q6H PRN PRN Reason: ITCHING Folic Acid (Folvite Tab*) 1 mg PO DAILY [facility] Last Admin: 01/13/17 08:26 Dose: 1 mg Gabapentin (Neurontin Cap(*)) 600 mg PO TID [facility] Last Admin: 01/13/17 14:37 Dose: 600 mg Heparin Sodium (Porcine) (Heparin Vial(*)) 5,000 units SUBCUT Q8HR [facility] Last Admin: 01/13/17 18:40 Dose: Not Given Lamotrigine (Lamictal Xr (Nf)) 100 mg PO BID [facility] Last Admin: 01/13/17 08:23 Dose: 100 mg Lorazepam (Ativan Inj*) 0 mg IV .PER WAM SCORE [facility] PRN Reason: Protocol Last Admin: 01/09/17 20:10 Dose: 4 mg Magnesium Oxide (Magox 400 Tab*) 400 mg PO DAILY [facility] Last Admin: 01/13/17 08:25 Dose: 400 mg Midodrine (Midodrine (Nf)) 2.5 mg PO 0800,1600 [facility] PRN Reason: Protocol Last Admin: 01/13/17 15:56 Dose: Not Given Multivitamins/Minerals (Theragran/Minerals Tab*) 1 tab PO DAILY [facility] Last Admin: 01/13/17 08:26 Dose: 1 tab Nicotine (Nicotine Inhaler*) 10 mg INH Q2H PRN PRN Reason: CRAVING Last Admin: 01/13/17 19:15 Dose: 10 mg Nicotine (Nicotine Patch 14 Mg/24 Hr*) 1 patch TRANSDERM DAILY [facility] Last Admin: 01/13/17 08:27 Dose: 1 patch Nicotine Polacrilex (Nicotine Gum*) 2 mg PO Q2H PRN PRN Reason: CRAVING Ondansetron HCl (Zofran Inj*) 4 mg IV Q4H PRN PRN Reason: NAUSEA/VOMITING Pharmacy Profile Note (Nicotine Patch Removal Note*) 1 note FOLLOW UP 2100 [facility] Last Admin: 01/12/17 20:11 Dose: Not Given Potassium Chloride (Klor Con Er Tab*) 20 meq PO BID [facility] Last Admin: 01/13/17 08:26 Dose: 20 meq Temazepam (Restoril Cap*) 30 mg PO BEDTIME PRN PRN Reason: INSOMNIA Last Admin: 01/12/17 21:42 Dose: 30 mg Thiamine HCl (Vitamin B-1 Tab*) 100 mg PO DAILY [facility] Last Admin: 01/13/17 08:26 Dose: 100 mg . Vital Signs 01/12/17 01/12/17 01/12/17 20:00 20:05 22:05 Temperature Pulse Rate Respiratory 16 16 16 Rate Blood Pressure (mmHg) O2 Sat by Pulse Oximetry 01/12/17 01/13/17 01/13/17 23:21 07:45 08:00 Temperature 98.2 F 97.3 F Pulse Rate 73 101 Respiratory 15 16 16 Rate Blood Pressure 117/56 120/80 (mmHg) O2 Sat by Pulse 98 100 Oximetry Oxygen Devices in Use Now: None Appearance: NAD Eyes: No Scleral Icterus Ears/Nose/Mouth/Throat: NL Teeth, Lips, Gums Neck: NL Appearance and Movements; NL JVP Respiratory: Symmetrical Chest Expansion and Respiratory Effort, Clear to Auscultation Cardiovascular: NL Sounds; No Murmurs; No JVD, No Edema Abdominal: NL Sounds; No Tenderness; No Distention Extremities: No Edema Skin: No Rash or Ulcers Neurological: Alert and Oriented x 3 Nutrition: Taking PO's Result Diagrams: 01/10/17 05:52 01/12/17 06:09 Additional Lab and Data: . Assess/Plan/Problems-Billing . Assessment: 26 yo female with acute alcohol withdrawal and perhaps suboptimally treated bipolar -- complex admission for etoh withdrawal management and psych evaluation and potentially etoh rehabilitation placement. . - Patient Problems (1) Alcohol withdrawal hallucinosis Current Visit: Yes Status: Acute Priority: High Code(s): F10.232 - ALCOHOL DEPENDENCE W WITHDRAWAL WITH PERCEPTUAL DISTURBANCE Comment: - [facility] protocol off - Aggressive IVF (stopped) - MVI, thaimine, folic acid - 1:1 safety monitoring dc'd 4/9 - psych consult appreciated - to Mami Solomon when bed available
[2017-01-13] MEDS: Amitriptyline TAB* 25 MG PO SCH (20:57)
[2017-01-13] MEDS: Nicotine Patch Removal NOTE FOLLOW UP SCH (20:57)
[2017-01-14] MEDS: Heparin VIAL(*) 5000 UNITS/ML VIAL (FIVE THOUSAND) SUBCUT SCH (05:53)
[2017-01-14 07:41] VITALS: BP 116/70
[2017-01-14] MEDS: Nicotine Inhaler* 10 MG AMP INH PRN (08:00)
[2017-01-14] MEDS: Gabapentin CAP(*) 300 MG PO SCH (08:02)
[2017-01-14] MEDS: LAMOTRIGINE 100 MG PO SCH (08:03)
[2017-01-14] MEDS: Nicotine PATCH 14 MG/24 HR* PATCH TRANSDERM SCH (08:03)
[2017-01-14] MEDS: Magnesium Oxide TAB* 400 MG PO SCH (08:04)
[2017-01-14] MEDS: Midodrine (NF) 5 MG TAB PO SCH (08:04)
[2017-01-14] MEDS: Potassium Chlor TAB* 20 MEQ TAB.ER PO SCH (08:07)
[2017-01-14] MEDS: Multivitamins/Minerals TAB PO SCH (08:07)
[2017-01-14] MEDS: Thiamine TAB* 100 MG TAB PO SCH (08:07)
[2017-01-14] MEDS: Folic Acid TAB* 1 MG PO SCH (08:07)
--- NOTE | 2017-01-14 17:25 | DS ---
DISCHARGE SUMMARY: DATE OF ADMISSION: 01/09/17 DATE OF DISCHARGE: 01/14/17 STATUS DURING HOSPITALIZATION: Inpatient. PRIMARY CARE PROVIDER: Dr. Robbin Rosa, [facility]. PRINCIPAL DISCHARGE DIAGNOSES: 1. Active alcohol withdrawal and hallucinations along with bipolar II and potentially incomplete control. 2. Ongoing alcoholism with high-risk behavior. SECONDARY DIAGNOSES: 1. Mitral valve prolapse. 2. History of intraventricular conduction delay versus right bundle branch block. 3. Neurocardiogenic syncope and postural orthostatic tachycardia syndrome and orthostatic hypotension - on midodrine. DISCHARGE MEDICATION REGIMEN: 1. New: Gabapentin 600 mg by mouth 3 times daily. 2. New: Folic acid 1 mg by mouth daily. 3. New: Thiamine 100 mg by mouth daily. 4. Elavil 25 mg by mouth at bedtime. 5. Lamotrigine ER 100 mg by mouth twice daily. 6. Potassium chloride 20 mEq by mouth twice daily. 7. Acetaminophen 650 mg by mouth every 4 to 6 hours p.r.n. pain/fever. 8. Magnesium oxide 400 mg by mouth daily (new). 9. Midodrine 5 mg by mouth b.i.d. p.r.n. with the patient often times refusing based on lack of symptoms. 10. Multivitamin 1 tablet by mouth once daily. 11. Nicotine gum/inhaler/patch - at the patient's discretion - OTC. 12. Diphenhydramine 25 mg by mouth every 6 hours p.r.n. itching. HISTORY OF PRESENT ILLNESS AND HOSPITAL COURSE: Please see my H and P on . In brief, Ms. Nunez is a 26-year-old woman who came to the emergency room seeking mental health evaluation and late-stage alcohol withdrawal symptoms, who was drinking heavily 3 to 5 days prior to admission, who was suffering confusions, short-term memory loss, and delirium-like symptoms over the past 24 to 48 hours prior to admission. The patient has not been treated for several years for bipolar disorder and has been drinking potentially as an effort for treatment and also in response to breaking up with her boyfriend on Friday. The patient has a young daughter. The patient is accompanied by her parents. She is from [place], [place]. She is planning to go directly from the hospital to [facility]. Please see the psychiatric consultation by Dr. Asad Najera on 01/11/17. In brief, this is a very insightful and comprehensive discussion of her mental health history and current state. It discusses the rationale for choosing gabapentin 600 mg by mouth 3 times daily for both her alcoholism and as a mood stabilizer. It also provides some recommendations for potentially Antabuse and/or naltrexone for maintenance of remission with respect to her alcoholism. There is also recommendation of contacting Child Protective Services, which was done during this hospitalization for her high-risk behavior with respect to her daughter. At this point, Ms. Nunez seems very motivated to succeed. She has been out of delirium tremens for 2 days now waiting for discharge to [facility] where a bed is now available. The patient is accompanied by her parents and she seems very motivated to succeed. She was given return to ED instructions and asked to re- engage with her primary care following her return from [facility]. It is unclear whether she will remain in this area as per her discussion with her mother and she may be moving back to the [place] area after her rehabilitation stay. TIME SPENT: Total time taken to discharge Ms. Nunez was 45 minutes, greater than half the time was spent going over the discharge instructions with the patient face- to-face at the bedside. All questions asked were answered to the patient's satisfaction. CONDITION AT DISCHARGE: Stable. CC: Dr. Robbin Rosa, [facility] * [id number]/CPS #: [id number] MTDD
== END 2017-01-14 10:40 | DRG 775 ==
LOC: ED 06:28 → MED 18:16
PROVIDERS: ADMIT Internal Medicine; ATTEND Internal Medicine
DX: F10.231 Alcohol dependence with withdrawal delirium (principal); F10.24 Alcohol dependence with alcohol-induced mood disorder; Y90.0 Blood alcohol level of less than 20 mg/100 ml; F31.9 Bipolar disorder, unspecified; I34.9 Nonrheumatic mitral valve disorder, unspecified; I45.10 Unspecified right bundle-branch block; I95.1 Orthostatic hypotension; Z79.899 Other long term (current) drug therapy; F17.210 Nicotine dependence, cigarettes, uncomplicated
CPT/HCPCS: 36415; 80048; 80053; 80076; 80307; 80320; 80329; 81003; 81015; 83605; 83735; 84100; 84443; 84702; 85025; 87086; 90732; 93005; 96374; 99283; A9270-GY; G0480; J1644; J2060; J3360

== ENCOUNTER 2017-02-09 19:29 | Emergency (ER) | payer BC ==
[2017-02-09 19:38] VITALS: BP 124/83
--- NOTE | 2017-02-09 22:52 | ED ---
Bite Injury/Animal - HPI Summary HPI Summary: Patient presents to ED after raccoon bite to the right leg and left middle finger. She was attempting to pet the raccoon when it bit her twice. She had obtained rabies pre-exposure prophylaxis in 2011 and post-exposure prophylaxis in 2013 which was for a raccoon bite. 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 - History of Current Complaint Chief Complaint: EDAnimalBite Stated Complaint: BIT BY RACCOON Time Seen by Provider: 02/09/17 20:17 Hx Obtained From: Patient Hx Last Menstrual Period: 2 DAYS AGO Onset of Injury: Happened minutes ago Type of Bite: Wild Animal Hx of Bite: Provoked by: - person trying to pet the animal Severity Initially: Mild Severity Currently: Mild Pain Intensity: 0 Pain Scale Used: 0-10 Numeric Character: Puncture Associated Signs And Symptoms: Positive: Drainage, Swelling Animal Available for Observation: No Animal Control Notified: No - Risk Factors Infection/Sepsis Risk Factors: Negative - Allergies/Home Medications Allergies/Adverse Reactions: Allergies Allergy/AdvReac Type Severity Reaction Status Date / Time No Known Allergies Allergy Verified 03/27/16 18:29 PMH/Surg Hx/FS Hx/Imm Hx Previously Healthy: Yes Endocrine/Hematology History: Reports: Other Endocrine/Hematological Disorders - frequent large hematomas Denies: Hx Anticoagulant Therapy, Hx Diabetes, Hx Thyroid Disease Cardiovascular History: Reports: Hx Hypotension, Hx Syncope, Other Cardiovascular Problems/Disorders - MVP Denies: Hx Congestive Heart Failure, Hx Deep Vein Thrombosis, Hx Hypertension , Hx Myocardial Infarction, Hx Pacemaker/ICD Respiratory History: Denies: Hx Asthma, Hx Chronic Obstructive Pulmonary Disease (COPD), Hx Lung Cancer, Hx Pneumonia, Hx Pulmonary Embolism GI History: Denies: Hx Gall Bladder Disease, Hx Gastrointestinal Bleed, Hx Ulcer, Hx Urosepsis History: Denies: Hx Kidney Stones, Hx Renal Disease Sensory History: Reports: Hx Contacts or Glasses Denies: Hx Hearing Aid Opthamlomology History: Reports: Hx Contacts or Glasses Neurological History: Reports: Hx Migraine - On amitriptyline for this., Hx Seizures, Other Neuro Impairments/Disorders - Syncope Denies: Hx Dementia, Hx Transient Ischemic Attacks (TIA) Psychiatric History: Reports: Hx Bipolar Disorder Denies: Hx Anxiety, Hx Eating Disorder, Hx Depression, Hx Schizophrenia, Hx of Violent Episodes Against Others - Surgical History Surgery Procedure, Year, and Place: BIOPSY 1.5 YEARS AGO LEFT ARM SECONDARY TO AN ARTHROPOD BITE. PUUNCH BIOBSY 2 DAYS AGO LEFT UPPER ARM. - Immunization History Date of Tetanus Vaccine: within past few years Date of Influenza Vaccine: never Hx Pertussis Vaccination: No Immunizations Up to Date: Yes Infectious Disease History: No Infectious Disease History: Denies: Hx Clostridium Difficile, Hx Hepatitis, Hx Human Immunodeficiency Virus (HIV), Hx of Known/Suspected MRSA, Hx Shingles, Hx Tuberculosis, Hx Known/ Suspected VRE, Hx Known/Suspected VRSA, History Other Infectious Disease, Traveled Outside the [place] in Last 30 Days - Family History Known Family History: Positive: Cardiac Disease, Hypertension, Other - Arthritis , [place] Family History: Mother with rheumatoid arthritis. - Social History Occupation: Employed Full-time Lives: With Family Alcohol Use: None Hx Substance Use: No Substance Use Type: Reports: None Hx Tobacco Use: Yes Smoking Status (MU): Light Every Day Tobacco Smoker Type: Cigarettes Amount Used/How Often: 3-4 CIGS/DAY Length of Time of Smoking/Using Tobacco: 3+ YEARS Have You Smoked in the Last Year: Yes Review of Systems Constitutional: Negative Eyes: Negative Cardiovascular: Negative Respiratory: Negative Gastrointestinal: Negative Positive: Other - puncture wound to the right leg and avulsion wound to the middle finger of left hand Neurological: Negative Psychological: Normal All Other Systems Reviewed And Are Negative: Yes Physical Exam Triage Information Reviewed: Yes Vital Signs On Initial Exam: Initial Vitals Temp Pulse Resp BP Pulse Ox 97.9 F 112 18 124/83 98 02/09/17 19:35 02/09/17 19:35 02/09/17 19:35 02/09/17 19:35 02/09/17 19:35 Vital Signs Reviewed: Yes Appearance: Positive: Well-Appearing, Well-Nourished Skin: Positive: Warm, Skin Color Reflects Adequate Perfusion, Other - puncture wound to the right leg and avulsion wound to the middle finger of left hand Eyes: Positive: EOMI, Conjunctiva Clear Neck: Positive: Supple, No Lymphadenopathy Respiratory/Lung Sounds: Positive: Clear to Auscultation, Breath Sounds Present Cardiovascular: Positive: Normal Musculoskeletal: Positive: Normal, Strength/ROM Intact Neurological: Positive: Alert, Oriented to Person Place, Time, Speech Normal Psychiatric: Positive: Normal AVPU Assessment: Alert Diagnostics - Vital Signs Vital Signs Temp Pulse Resp BP Pulse Ox 02/09/17 20:48 97.9 F 112 18 124/83 98 02/09/17 19:35 97.9 F 112 18 124/83 98 - Laboratory Lab Statement: Any lab studies that have been ordered have been reviewed, and results considered in the medical decision making process. Bite Injury Course/Dx - Course Course Of Treatment: puncture wound to the right leg and avulsion wound to the middle finger of left hand. provider called [facility] who requested I speak to [facility]. [place] stated [facility] they will [facility] patient tomorrow morning and set up times. patient agrees with this and is ok for discharge. augmentin sent to pharmacy - Diagnoses Differential Diagnosis/HQI/PQRI: Positive: Crush Injury, Laceration, Puncture Provider Diagnosis: Raccoon bite Discharge - Discharge Plan Condition: Stable Disposition: HOME Prescriptions: Amoxicillin/Clavulanate TAB* [Augmentin TAB 875*] 875 mg PO BID #14 tab Patient Education Materials: Rabies (ED), Rabies Vaccine (ED) Referrals: Robbin Rosa MD [Primary Care Provider] - Additional Instructions: Follow up with [facility] for series of post-exposure prophylaxis.
== END 2017-02-09 21:43 | disposition home or self-care (01) ==
LOC: ED 19:29
DX: S61.252A Open bite of right middle finger without damage to nail, initial encounter (principal); W55.51XA Bitten by raccoon, initial encounter; Y93.9 Activity, unspecified; Y92.9 Unspecified place or not applicable; Y99.9 Unspecified external cause status; F17.210 Nicotine dependence, cigarettes, uncomplicated
CPT/HCPCS: 99281

== ENCOUNTER 2017-03-25 10:11 | Emergency (ER) | payer BC ==
[2017-03-25] MEDS: NS 0.9% 1000 ML* 2,000 ML IV ONE (12:26)
[2017-03-25 12:32] LABS: Urine Bacteria Absent (Absent); Urine Bilirubin Negative (Negative); Urine Glucose Negative (Negative); Urine Nitrite Negative (Negative)
[2017-03-25 12:42] LABS: Hematocrit 43 % (35-47); Hemoglobin 14.3 g/dl (12.0-16.0); Mean Corpuscular HGB Conc 34 g/dl (31-36); Mean Corpuscular Hemoglobin 33 pg (27-31); Mean Corpuscular Volume 97 fL (80-97); Mean Platelet Volume 8 um3 (7.4-10.4); Red Blood Count 4.39 10^6/ul (4.0-5.4); Red Cell Distribution Width 13 % (10.5-15); White Blood Count 9.5 10^3/ul (3.5-10.8)
[2017-03-25 13:04] LABS: ALT 18 U/L (7-52); AST 27 U/L (13-39); Albumin 4.5 g/dL (3.2-5.2); Alkaline Phosphatase 71 U/L (34-104); Anion Gap 8 mmol/L (2-11); BUN/Creatinine Ratio 12.9 (8-20); Blood Urea Nitrogen 9 mg/dL (6-24); CO2 Carbon Dioxide 26 mmol/L (22-32); Calcium 9.7 mg/dL (8.6-10.3); Chloride 100 mmol/L (101-111); Creatine Kinase 93 U/L (10-223); EGFR African American 127.2 (>60); EGFR Non-African American 98.9 (>60); Globulin 3.5 g/dL (2-4); Glucose 104 mg/dL (70-100); Potassium 3.8 mmol/L (3.5-5.0); Sodium 134 mmol/L (133-145)
[2017-03-25 13:10] LABS: Alcohol < 10 mg/dL (<10)
[2017-03-25 13:21] LABS: TSH (Thyroid Stimulating Horm) 1.42 mcIU/mL (0.34-5.60)
[2017-03-25 13:22] LABS: Benzodiazepine Urine Screen None Detected (None Detect)
[2017-03-25 14:09] VITALS: BP 132/72
[2017-03-25] MEDS ORDERED: Potassium Chlor TAB* 20 MEQ TAB.ER PO ONE (14:20)
--- NOTE | 2017-03-25 18:20 | ED ---
Su Acosta Claudia, scribed for Marcelo Kothari MD on 03/25/17 at 1157 . Palpitations / Dysrhythmia - HPI Summary HPI Summary: 27 year old female presents to the ED with palpitations. The pt describes it has skipped beats as well as racing heart rate. She states shs has had similar Sx in the past aout 2 months ago when she had low potassium of 24. Pt states she was admitted overnight to rebalance her potassium at that time. She also admits to some increased frequency and urgency of urine and thinks she might have a UTI. Pt denies any CP, nausea, vomiting, and swelling to her legs at this time. Pt denies taking any water pills, but does take Midodrine, Lamictal amitriptyline for low BP, Sz and migraines respectively. Pt also mentions that her hands have been "tighter" lately which was a similar Sx to when she had low Potassium. Pt denies any recent illness, weight changes, high salt diet. She does admit to RBBB and mitral valve disorder but she is not currently taking any mediation for that.Pt does currently admit to being thirsty. She denies PMHx of Supraventricualr Tachycardia and or AFIB. - History of Current Complaint Chief Complaint: EDDizziness Time Seen by Provider: 03/25/17 11:38 Hx Obtained From: Patient Onset/Duration: Sudden Onset, Still Present Character: Fast, Skipped Beats Aggravating: Nothing Alleviating: Nothing Associated Signs & Symptoms: Syncope - near syncope - Allergy/Home Medications Allergies/Adverse Reactions: Allergies Allergy/AdvReac Type Severity Reaction Status Date / Time No Known Allergies Allergy Verified 03/27/16 18:29 PMH/Surg Hx/FS Hx/Imm Hx Previously Healthy: Yes Endocrine/Hematology History: Reports: Other Endocrine/Hematological Disorders - frequent large hematomas Denies: Hx Anticoagulant Therapy, Hx Diabetes, Hx Thyroid Disease Cardiovascular History: Reports: Hx Hypotension, Hx Syncope, Other Cardiovascular Problems/Disorders - MVP Denies: Hx Congestive Heart Failure, Hx Deep Vein Thrombosis, Hx Hypertension , Hx Myocardial Infarction, Hx Pacemaker/ICD Respiratory History: Denies: Hx Asthma, Hx Chronic Obstructive Pulmonary Disease (COPD), Hx Lung Cancer, Hx Pneumonia, Hx Pulmonary Embolism GI History: Denies: Hx Gall Bladder Disease, Hx Gastrointestinal Bleed, Hx Ulcer, Hx Urosepsis History: Denies: Hx Kidney Stones, Hx Renal Disease Sensory History: Reports: Hx Contacts or Glasses Denies: Hx Hearing Aid Opthamlomology History: Reports: Hx Contacts or Glasses Neurological History: Reports: Hx Migraine - On amitriptyline for this., Hx Seizures, Other Neuro Impairments/Disorders - Syncope Denies: Hx Dementia, Hx Transient Ischemic Attacks (TIA) Psychiatric History: Reports: Hx Bipolar Disorder Denies: Hx Anxiety, Hx Eating Disorder, Hx Depression, Hx Schizophrenia, Hx of Violent Episodes Against Others - Surgical History Surgery Procedure, Year, and Place: BIOPSY 1.5 YEARS AGO LEFT ARM SECONDARY TO AN ARTHROPOD BITE. PUUNCH BIOBSY 2 DAYS AGO LEFT UPPER ARM. - Immunization History Date of Tetanus Vaccine: within past few years Date of Influenza Vaccine: never Infectious Disease History: No Infectious Disease History: Denies: Hx Clostridium Difficile, Hx Hepatitis, Hx Human Immunodeficiency Virus (HIV), Hx of Known/Suspected MRSA, Hx Shingles, Hx Tuberculosis, Hx Known/ Suspected VRE, Hx Known/Suspected VRSA, History Other Infectious Disease, Traveled Outside the [place] in Last 30 Days - Family History Known Family History: Positive: Cardiac Disease, Hypertension, Other - Arthritis , [place] Family History: Mother with rheumatoid arthritis. - Social History Alcohol Use: None Hx Substance Use: No Substance Use Type: Reports: None Hx Tobacco Use: Yes Smoking Status (MU): Light Every Day Tobacco Smoker Type: Cigarettes Amount Used/How Often: 3-4 CIGS/DAY Length of Time of Smoking/Using Tobacco: 3+ YEARS Have You Smoked in the Last Year: Yes Review of Systems Constitutional: Negative Eyes: Negative ENT: Negative Positive: Palpitations. Negative: Chest Pain Respiratory: Negative Gastrointestinal: Negative Negative: Vomiting, Nausea Positive: frequency, urgency Musculoskeletal: Negative Skin: Negative Neurological: Negative Psychological: Normal All Other Systems Reviewed And Are Negative: Yes Physical Exam - Summary Physical Exam Summary: The patient is well-nourished in no acute distress and in no acute pain. The skin is warm and dry and skin color reflects adequate perfusion.Nml skin turgor. HEENT: The head is normocephalic and atraumatic. The pupils are equal and reactive. The conjunctivae are clear and without drainage. Nares are patent and without drainage. Mouth reveals moist mucous membranes and the throat is without erythema and exudate. The external ears are intact. The ear canals are patent and without drainage. The tympanic membranes are intact. Neck is supple with full range of motion and non-tender. There are no carotid bruits. There is no neck vein distension. Respiratory: Chest is non-tender. Lungs are clear to auscultation and breath sounds are symmetrical and equal. Cardiovascular: Heart is slightly tachycardic. Murmur auscultated. There is no peripheral edema and pulses are symmetrical and equal. Abdomen: The abdomen is soft and non-tender. There are normal bowel sounds heard in all four quadrants and there is no organomegaly palpated. Musculoskeletal: There is no back pain noted. Extremities are non-tender with full range of motion. There is good capillary refill. There is no peripheral edema or calf tenderness elicited. Neurological: Patient is alert and oriented to person, place and time. The patient has symmetrical motor strength in all four extremities. Cranial nerves are grossly intact. Deep tendon reflexes are symmetrical and equal in all four extremities. Psychiatric: The patient is mildly anxious. . Triage Information Reviewed: Yes Vital Signs On Initial Exam: Initial Vitals Temp Pulse Resp BP Pulse Ox 98.7 F 89 16 137/76 100 03/25/17 10:31 03/25/17 10:31 03/25/17 10:31 03/25/17 10:31 03/25/17 10:31 Vital Signs Reviewed: Yes - [place] Coma Scale Coma Scale Total: 15 Diagnostics - Vital Signs Vital Signs Temp Pulse Resp BP Pulse Ox 03/25/17 10:34 98.7 F 97 16 137/76 100 03/25/17 10:31 98.7 F 89 16 137/76 100 - Laboratory Lab Results: Lab Results 03/25/17 03/25/17 03/25/17 Range/Units 12:09 12:09 12:23 WBC 9.5 (3.5-10.8) 10^3/ul RBC 4.39 (4.0-5.4) 10^6/ul Hgb 14.3 (12.0-16.0) g/dl Hct 43 (35-47) % MCV 97 (80-97) fL MCH 33 H (27-31) pg MCHC 34 (31-36) g/dl RDW 13 (10.5-15) % Plt Count 297 (150-450) 10^3/ul MPV 8 (7.4-10.4) um3 Neut % (Auto) 83.5 H (38-83) % Lymph % (Auto) 11.0 L (25-47) % [place] % (Auto) 5.0 (1-9) % Eos % (Auto) 0.3 (0-6) % Baso % (Auto) 0.2 (0-2) % Absolute Neuts (auto) 7.9 H (1.5-7.7) 10^3/ul Absolute Lymphs (auto) 1.0 (1.0-4.8) 10^3/ul Absolute Monos (auto) 0.5 (0-0.8) 10^3/ul Absolute Eos (auto) 0 (0-0.6) 10^3/ul Absolute Basos (auto) 0 (0-0.2) 10^3/ul Absolute Nucleated RBC 0 10^3/ul Nucleated RBC % 0 Sodium (133-145) mmol/L Potassium (3.5-5.0) mmol/L Chloride (101-111) mmol/L Carbon Dioxide (22-32) mmol/L Anion Gap (2-11) mmol/L BUN (6-24) mg/dL Creatinine (0.51-0.95) mg/dL Est GFR ( Amer) (>60) Est GFR (Non-Af Amer) (>60) BUN/Creatinine Ratio (8-20) Glucose (70-100) mg/dL Lactic Acid (0.5-2.0) mmol/L Calcium (8.6-10.3) mg/dL Magnesium (1.9-2.7) mg/dL Total Bilirubin (0.2-1.0) mg/dL AST (13-39) U/L ALT (7-52) U/L Alkaline Phosphatase (34-104) U/L Total Creatine Kinase (10-223) U/L Troponin I (<0.04) ng/mL Total Protein (6.4-8.9) g/dL Albumin (3.2-5.2) g/dL Globulin (2-4) g/dL Albumin/Globulin Ratio (1-3) TSH (0.34-5.60) mcIU/mL Urine Color Straw Urine Appearance Clear Urine pH 8.0 (5-9) Ur Specific [place] 1.004 L (1.010-1.030) Urine Protein Negative (Negative) Urine Ketones Negative (Negative) Urine Blood Negative (Negative) Urine Nitrate Negative (Negative) Urine Bilirubin Negative (Negative) Urine Urobilinogen Negative (Negative) Ur Leukocyte Esterase Trace H (Negative) Urine WBC (Auto) Trace(0-5/hpf) (Absent) Urine RBC (Auto) Absent (Absent) Ur Squamous Epith Cells Present H (Absent) Urine Bacteria Absent (Absent) Urine Glucose Negative (Negative) Urine Opiates Screen None detected (None Detect) Ur Barbiturates Screen None detected (None Detect) Ur Phencyclidine Scrn None detected (None Detect) Ur Amphetamines Screen None detected (None Detect) U Benzodiazepines Scrn None detected (None Detect) Urine Cocaine Screen None detected (None Detect) U Cannabinoids Screen None detected (None Detect) Serum Alcohol (<10) mg/dL 03/25/17 03/25/17 Range/Units 12:23 12:23 WBC (3.5-10.8) 10^3/ul RBC (4.0-5.4) 10^6/ul Hgb (12.0-16.0) g/dl Hct (35-47) % MCV (80-97) fL MCH (27-31) pg MCHC (31-36) g/dl RDW (10.5-15) % Plt Count (150-450) 10^3/ul MPV (7.4-10.4) um3 Neut % (Auto) (38-83) % Lymph % (Auto) (25-47) % [place] % (Auto) (1-9) % Eos % (Auto) (0-6) % Baso % (Auto) (0-2) % Absolute Neuts (auto) (1.5-7.7) 10^3/ul Absolute Lymphs (auto) (1.0-4.8) 10^3/ul Absolute Monos (auto) (0-0.8) 10^3/ul Absolute Eos (auto) (0-0.6) 10^3/ul Absolute Basos (auto) (0-0.2) 10^3/ul Absolute Nucleated RBC 10^3/ul Nucleated RBC % Sodium 134 (133-145) mmol/L Potassium 3.8 (3.5-5.0) mmol/L Chloride 100 L (101-111) mmol/L Carbon Dioxide 26 (22-32) mmol/L Anion Gap 8 (2-11) mmol/L BUN 9 (6-24) mg/dL Creatinine 0.70 (0.51-0.95) mg/dL Est GFR ( Amer) 127.2 (>60) Est GFR (Non-Af Amer) 98.9 (>60) BUN/Creatinine Ratio 12.9 (8-20) Glucose 104 H (70-100) mg/dL Lactic Acid 0.9 (0.5-2.0) mmol/L Calcium 9.7 (8.6-10.3) mg/dL Magnesium 2.0 (1.9-2.7) mg/dL Total Bilirubin 0.40 (0.2-1.0) mg/dL AST 27 (13-39) U/L ALT 18 (7-52) U/L Alkaline Phosphatase 71 (34-104) U/L Total Creatine Kinase 93 (10-223) U/L Troponin I 0.00 (<0.04) ng/mL Total Protein 8.0 (6.4-8.9) g/dL Albumin 4.5 (3.2-5.2) g/dL Globulin 3.5 (2-4) g/dL Albumin/Globulin Ratio 1.3 (1-3) TSH 1.42 (0.34-5.60) mcIU/mL Urine Color Urine Appearance Urine pH (5-9) Ur Specific [place] (1.010-1.030) Urine Protein (Negative) Urine Ketones (Negative) Urine Blood (Negative) Urine Nitrate (Negative) Urine Bilirubin (Negative) Urine Urobilinogen (Negative) Ur Leukocyte Esterase (Negative) Urine WBC (Auto) (Absent) Urine RBC (Auto) (Absent) Ur Squamous Epith Cells (Absent) Urine Bacteria (Absent) Urine Glucose (Negative) Urine Opiates Screen (None Detect) Ur Barbiturates Screen (None Detect) Ur Phencyclidine Scrn (None Detect) Ur Amphetamines Screen (None Detect) U Benzodiazepines Scrn (None Detect) Urine Cocaine Screen (None Detect) U Cannabinoids Screen (None Detect) Serum Alcohol < 10 (<10) mg/dL Result Diagrams: 03/25/17 12:23 03/25/17 12:23 Lab Statement: Any lab studies that have been ordered have been reviewed, and results considered in the medical decision making process. - EKG 12:01 Cardiac Rate: NL EKG Interpretation: RBBB, left axis NO STEMI Re-Evaluation - Re-Evaluation 1 Re-Evaluation Time: 14:20 Change: Improved Comment: After discussing lab work with the pt, I have told her that I will give her 1 dose of potassium by mouth and she will be d/c home and follow-up with PCP and I will give her a dietary print-out with some high potassium foods. Course/Dx - Diagnoses Differential Diagnosis/HQI/PQRI: Positive: Hypokalemia, Paroxymal SVT, Other - dehydration, anxiety Provider Diagnoses: Hypokalemia, Palpitations Discharge - Discharge Plan Condition: Stable Disposition: HOME Patient Education Materials: Hypokalemia (ED), Palpitations (ED), Potassium Content of Foods List (ED) Forms: *Work Release Referrals: Robbin Rosa MD [Primary Care Provider] - 2 Days The documentation as recorded by the Su marques Claudia accurately reflects the service I personally performed and the decisions made by me, Marcelo Kothari MD.
--- NOTE | 2017-03-27 18:05 | ED ---
Progress - Progress Note Progress Note: Pt's urine cx reveals staph saprophyticus 100,000cfu/ml. Note indicates pt reported UTI sx. No meds at d/c. LMTC and will mail letter to home as pt needs anbx tx. She may be rx'd any antibiotic used for common UTI (ie. bactrim, cipro , nitrofurantoin, etc). fabricio Song, aware. Re-Evaluation - Re-Evaluation 1 Re-Evaluation Time: 14:20 Change: Improved Comment: After discussing lab work with the pt, I have told her that I will give her 1 dose of potassium by mouth and she will be d/c home and follow-up with PCP and I will give her a dietary print-out with some high potassium foods. Course/Dx - Diagnoses Provider Diagnoses: Hypokalemia, Palpitations
== END 2017-03-25 14:42 | disposition home or self-care (01) ==
LOC: ED 10:11
DX: E87.6 Hypokalemia (principal); R00.2 Palpitations; R55 Syncope and collapse; R35.0 Frequency of micturition; I45.10 Unspecified right bundle-branch block; Z04.8 Encounter for examination and observation for other specified reasons; I95.9 Hypotension, unspecified; I34.1 Nonrheumatic mitral (valve) prolapse; G43.909 Migraine, unspecified, not intractable, without status migrainosus; F31.9 Bipolar disorder, unspecified; F17.210 Nicotine dependence, cigarettes, uncomplicated
CPT/HCPCS: 36415; 80053; 80307; 80320; 81003; 81015; 82550; 83605; 83735; 84443; 84484; 85025; 87077; 87086; 93005; 96360; 96361; 99283; A9270-GY; G0480

== ENCOUNTER 2018-10-23 22:33 | Inpatient (IN) | payer BC, MEDICAID ==
[2018-10-23] MEDS ORDERED: Midazolam* 1 MG/ML 5 ML VIAL (5 MG) ONE (22:45)
[2018-10-23] MEDS ORDERED: NS 0.9% 1000 ML* 1,000 ML IV ONE (22:51)
[2018-10-23] MEDS ORDERED: Charcoal ACTIVATED* 25 GM/120 ML BTL NG TUBE ONE (22:52)
--- NOTE | 2018-10-23 22:52 | ED ---
Substance Abuse/Use - HPI Summary HPI Summary: This patient is a 28 year old F brought in by ambulance to [facility] with a chief complaint of OD on an unknown amount of Lamotrigine, Amitriptyline, and Propanolol at approximately 21:30, 1 hour before arrival. Hx obtained from from EMS and patients significant other. Pt has hx depression. Patients significant other stated he got home and pt told him that she was leaving him and she had taken the specified medications. EMS report the patients drove her to the [place] station. EMS note that the patient fell while getting out of her husbands truck and hit her head. EMS report that the patient was responsive DIE SETTER. Patient is unresponsive upon arrival to [facility]. EMS report the patient has been vomiting. LEVEL FIVE CAVEAT DUE TO UNRESPONSIVENESS - History Of Current Complaint Stated Complaint: OVERDOSE Hx Obtained From: EMS Hx From Patient Unobtainable Due To: Other - unresponsive Hx Last Menstrual Period: 2 DAYS AGO Onset/Duration of Drug/ETOH Abuse: Hours - 1 hour Ingestion History: Type/Name Of Drug - Lamotrigine, Amitriptyline HCL, and Propanolol, Approximate Time Of Ingestion - 21:30 Overdose Characteristics: Oral Timing Of Abuse: Binge Use Severity Initially: Moderate Severity Currently: Severe Associated Signs And Symptoms: Vomiting, Other: - unresponsive - Allergies/Home Medications Allergies/Adverse Reactions: Allergies Allergy/AdvReac Type Severity Reaction Status Date / Time No Known Allergies Allergy Verified 10/23/18 22:57 PMH/Surg Hx/FS Hx/Imm Hx Endocrine/Hematology History: Reports: Other Endocrine/Hematological Disorders - frequent large hematomas Denies: Hx Anticoagulant Therapy, Hx Diabetes, Hx Thyroid Disease Cardiovascular History: Reports: Hx Hypotension, Hx Syncope, Other Cardiovascular Problems/Disorders - MVP Denies: Hx Congestive Heart Failure, Hx Deep Vein Thrombosis, Hx Hypertension , Hx Myocardial Infarction, Hx Pacemaker/ICD Respiratory History: Denies: Hx Asthma, Hx Chronic Obstructive Pulmonary Disease (COPD), Hx Lung Cancer, Hx Pneumonia, Hx Pulmonary Embolism GI History: Denies: Hx Gall Bladder Disease, Hx Gastrointestinal Bleed, Hx Ulcer, Hx Urosepsis History: Denies: Hx Kidney Stones, Hx Renal Disease Sensory History: Reports: Hx Contacts or Glasses Denies: Hx Hearing Aid Opthamlomology History: Reports: Hx Contacts or Glasses Neurological History: Reports: Hx Migraine - On amitriptyline for this., Hx Seizures, Other Neuro Impairments/Disorders - Syncope Denies: Hx Dementia, Hx Transient Ischemic Attacks (TIA) Psychiatric History: Reports: Hx Bipolar Disorder Denies: Hx Anxiety, Hx Eating Disorder, Hx Depression, Hx Schizophrenia, Hx of Violent Episodes Against Others - Surgical History Surgery Procedure, Year, and Place: BIOPSY 1.5 YEARS AGO LEFT ARM SECONDARY TO AN ARTHROPOD BITE. PUUNCH BIOBSY 2 DAYS AGO LEFT UPPER ARM. - Immunization History Date of Tetanus Vaccine: within past few years Date of Influenza Vaccine: never Infectious Disease History: Denies: Hx Clostridium Difficile, Hx Hepatitis, Hx Human Immunodeficiency Virus (HIV), Hx of Known/Suspected MRSA, Hx Shingles, Hx Tuberculosis, Hx Known/ Suspected VRE, Hx Known/Suspected VRSA, History Other Infectious Disease, Traveled Outside the [place] in Last 30 Days - Family History Known Family History: Positive: Cardiac Disease, Hypertension, Other - Arthritis , [place] Family History: Mother with rheumatoid arthritis. - Social History Alcohol Use: None Hx Substance Use: No Substance Use Type: Reports: None Hx Tobacco Use: Yes Smoking Status (MU): Light Every Day Tobacco Smoker Type: Cigarettes Amount Used/How Often: 3-4 CIGS/DAY Length of Time of Smoking/Using Tobacco: 3+ YEARS Have You Smoked in the Last Year: Yes Review of Systems Positive: Vomiting Skin: Other - abrasions to right forehead and face Neurological: Other - unresponsive All Other Systems Reviewed And Are Negative: No - Comments Additional Review of Systems Comments: LEVEL FIVE CAVEAT DUE TO UNRESPONSIVENESS Physical Exam - Summary Physical Exam Summary: VITAL SIGNS: Reviewed. GENERAL: Patient is a lethargic and weak at reflex FEMALE HEAD AND FACE: No ecchymosis, hematomas or skull depressions. No sinus tenderness. Abrasions to right side of forehead and face EYES: PERRLA, EOMI x 2, No injected conjunctiva, no nystagmus. EARS: Hearing grossly intact. Ear canals and tympanic membranes are within normal limits. MOUTH: Oropharynx within normal limits. NECK: Supple, trachea is midline, no adenopathy, no JVD, no carotid bruit, no c- spine tenderness, neck with full ROM. CHEST: Symmetric, no tenderness at palpation LUNGS: Clear to auscultation bilaterally. No wheezing or crackles. CVS: Regular rate and rhythm, S1 and S2 present, no murmurs or gallops appreciated. ABDOMEN: Soft, non-tender. No signs of distention. No rebound no guarding, and no masses palpated. Bowel sounds are normal. EXTREMITIES: FROM in all major joints, no edema, no clubbing. Extremities are cold NEURO: unresponsive SKIN: Dry LEVEL FIVE CAVEAT DUE TO UNRESPONSIVENESS Triage Information Reviewed: Yes Vital Signs Reviewed: Yes Procedures - Procedure Summary Procedure Summary: 18 Greek NG tube placed and position confirmed with auscultation and XR. - Central Line Right Jugular Central Line Lumen: triple Central Line Procedure: betadine prep, sterile drapes applied, sterile dressing applied Central Line Position: internal jugular (R) Anesthesia: pt is intubated and sedated Complications: none Central Line Post Position: sutured, good blood return, position confirmed w/ CXR - Intubation Time of Intubation: 22:40 Intubation Method: orotracheal Tube Size (cm): 7.5 Medications: Versed - 5 mg Breath Sounds after Intubation: equal Intubation Complications: no complications Post Intubation Xray: Yes Diagnostics - Laboratory Result Diagrams: 10/23/18 22:42 10/23/18 22:42 Lab Statement: Any lab studies that have been ordered have been reviewed, and results considered in the medical decision making process. - Radiology CXR 22:51 Radiology Interpretation Completed By: ED Physician Summary of Radiographic Findings: ET tube above jessenia. NG tube is too far in the duodenum. CXR 00:08 Radiology Interpretation Completed By: ED Physician - Dr. Agustin, pending official report Summary of Radiographic Findings: right triple lumen internal jugular catheter in place with tip distal to superior vena cava. No pneumothorax. - EKG 22:51 Cardiac Rate: NL - at 77 bpm EKG Rhythm: Sinus Rhythm Summary of EKG Findings: sinus rhythm at 77 bpm with prolonged QRS 23:19 Cardiac Rate: NL - at 73 bpm EKG Rhythm: Sinus Rhythm Summary of EKG Findings: sinus rhythm at 73 bpm with prolonged QRS 00:03 Cardiac Rate: NL - at 73 bpm EKG Rhythm: Sinus Rhythm Summary of EKG Findings: sinus rhythm at 73 bpm with prolonged QRS Course/Dx - Course Course Of Treatment: This patient is a 28 year old F brought in by ambulance to [facility] with a chief complaint of OD on an unknown amount of Lamotrigine, Amitriptyline, and Propanolol at approximately 21:30, 1 hour before arrival. Hx obtained from from EMS and patients significant other. Pt has hx depression. Patients significant other stated he got home and pt told him that she was leaving him and she had taken the specified medications. EMS report the patient s drove her to the [place] station. EMS note that the patient fell while getting out of her husbands truck and hit her head. EMS report that the patient was responsive DIE SETTER. Patient is unresponsive upon arrival to [facility]. EMS report the patient has been vomiting. Intubation was performed immediately at 22 :40 using a 7.5 cm orotracheal tube and 5 mg Versed. Breath sounds post- procedure are equal bilaterally. 18 Greek NG tube placed and position confirmed with auscultation and XR. CXR at 22:51 reveals, per ED physician, ET tube above jessenia. NG tube is too far in the duodenum. Exam post-procedure reveals pupils equal and reactive. Pt is sedated. Heart is nml, abd is nml, and her extremities are cold. A suicide note was found in the patients bra. An EKG at 22:51 reveals sinus rhythm at 77 bpm with prolonged QRS. Sales Manager was paged at 23:00. We discussed patient care at 23:[address] Gopi Cunha, yardage estimator, and they recommended sodium bicarb as needed for prolonged QRS. 1 trial dose of glucagon 4 mg. He said if pt is still hypotensive or bradycardic after 1 dose, pt needs to be on vasopressor. An EKG at 23:19 reveals sinus rhythm at 73 bpm with prolonged QRS. Right triple lumen internal jugular central line was placed at 00:00 with betadine prep, sterile drapes and sterile dressing applied. Post-position there is good blood return and it is sutured. CXR at 00:08 reveals, per ED physician, right triple lumen internal jugular catheter in place with tip distal to superior vena cava. No pneumothorax. An EKG at 00:03 reveals sinus rhythm at 73 bpm with prolonged QRS. After the third EKG, QRS is still above 120. Pt did receive 4 amp of bicarb, 4 mg glucagon, 2 L IV fluid saline. Pt was still hypotensive, pt is now on levophred. We discussed patient care with Dr. Zaldivar, hospitalist, and they recommend we discuss the case with Dr. Garcia, ICU. At 00:17 we discussed patient care with Dr. Garcia, ICU, and they agreed to discuss the case with Dr. Zaldivar, hospitalist. In the ED course the patient was given IV fluids, activated charcoal, fentanyl, amidate , anectine, glucagen, levophed, sodium bicarbonate, and Versed. 100 minutes of critical care time were performed. Dx drug OD, EtOH intoxication, and suicide attempt. Patient will be admitted to [facility] ICU. - Diagnoses Provider Diagnoses: Suicide attempt, Drug overdose, Alcohol intoxication - Physician Notifications Discussed Care Of Patient With: Gopi Cunha MD Time Discussed With Above Provider: 23:14 Instructed by Provider To: Other - Dr. Cunha recommended ___ . Discussed care at 00:[address] Garcia, ICU, who recommended - Critical Care Time Critical Care Time: 75-104 min - 100 minutes Discharge - Sign-Out/Discharge Documenting (check all that apply): Patient Departure - admit - Discharge Plan Condition: Critical Disposition: ADMITTED TO [facility] Referrals: Robbin Rosa MD [Primary Care Provider] - - Attestation Statements Document Initiated by Scribe: Yes Documenting Scribe: Janey Clay Provider For Whom Scribe is Documenting (Include Credential): Estevan Agustin MD Scribe Attestation: IJaney scribed for Estevan Agustin MD on 10/24/18 at 0019. Status of Scribe Document: Ready
[2018-10-23] MEDS ORDERED: Sodium Bicarbonate 8.4% IV* 50 ML VIAL ONE (22:58)
[2018-10-23] MEDS ORDERED: Sodium Bicarbonate 8.4%* 50 ML SYRINGE ONE (22:59)
[2018-10-23] MEDS ORDERED: Charcoal ACTIVATED* 25 GM/120 ML BTL PO ONE (23:02)
[2018-10-23 23:03] LABS: ABS Basophils 0 10^3/ul (0-0.2); ABS Eosinophils 0.2 10^3/ul (0-0.6); ABS Lymphocytes 3.5 10^3/ul (1.0-4.8); ABS Monocytes 0.8 10^3/ul (0-0.8); ABS Neutrophils 3.1 10^3/ul (1.5-7.7); ABS Nucleated RBC 0 10^3/ul; Eosinophil % 2.6 %; Hematocrit 40 % (35-47); Hemoglobin 13.7 g/dl (12.0-16.0); Lymphocyte % 46.3 %; Mean Corpuscular HGB Conc 34 g/dl (31-36); Mean Corpuscular Hemoglobin 33 pg (27-31); Mean Corpuscular Volume 98 fL (80-97); Mean Platelet Volume 6.8 fL (7.4-10.4); Nucleated Red Blood Cells % 0; Platelet Count 344 10^3/ul (150-450); Red Blood Count 4.11 10^6/ul (4.00-5.40); Red Cell Distribution Width 12 % (10.5-15); White Blood Count 7.7 10^3/ul (3.5-10.8)
[2018-10-23] MEDS ORDERED: Charcoal ACTIVATED* 25 GM/120 ML BTL ONE (23:03)
[2018-10-23] MEDS ORDERED: Midazolam* 1 MG/ML 5 ML VIAL (5 MG) IV ONE (23:06)
[2018-10-23 23:21] LABS: ALT 81 U/L (7-52); AST 69 U/L (13-39); Albumin 3.9 g/dL (3.2-5.2); Albumin/Globulin Ratio 1.3 (1-3); Alkaline Phosphatase 54 U/L (34-104); Anion Gap 10 mmol/L (2-11); BUN/Creatinine Ratio 13.4 (8-20); Blood Urea Nitrogen 9 mg/dL (6-24); CO2 Carbon Dioxide 20 mmol/L (22-32); Calcium 8.5 mg/dL (8.6-10.3); Chloride 104 mmol/L (101-111); Creatine Kinase 106 U/L (10-223); EGFR Non-African American 103.3 (>60); Globulin 3.1 g/dL (2-4); Glucose 149 mg/dL (70-100); Potassium 3.7 mmol/L (3.5-5.0); Sodium 134 mmol/L (135-145)
[2018-10-23] MEDS ORDERED: Etomidate* 2 MG/ML 10 ML VIAL IV ONE (23:27)
[2018-10-23] MEDS ORDERED: Succinylcholine* 20 MG/ML 10 ML VIAL IV ONE (23:27)
[2018-10-23 23:28] LABS: HCG Pregnancy < 0.60 mIU/mL
[2018-10-23] MEDS ORDERED: Sodium Bicarbonate 8.4%* 50 ML SYRINGE IV ONE (23:28)
[2018-10-23] MEDS ORDERED: Glucagon* 1 MG VIAL IV ONE (23:36)
[2018-10-23] MEDS ORDERED: Glucagon* 1 MG VIAL ONE (23:39)
[2018-10-23] MEDS ORDERED: Sterile Water for Inj* 30 ML ONE (23:40)
[2018-10-23] MEDS ORDERED: Midazolam IV for DRIP* 100 MG in NS 0.9% 100 ML* 80 ML IV SCH (23:45)
[2018-10-23] MEDS ORDERED: fentaNYL INFUSION 50 MCG/ML* 2,500 MCG/50 ML BAG IV SCH (23:45)
[2018-10-23 23:47] LABS: Acetaminophen < 15 mcg/mL; Alcohol 360 mg/dL (<10); Salicylate < 2.50 mg/dL (<30)
[2018-10-23] MEDS ORDERED: fentaNYL* 50 MCG/ML 2 ML VIAL (100 MCG VIAL) ONE (23:50)
[2018-10-23] MEDS: fentaNYL* 50 MCG/ML 2 ML VIAL (100 MCG VIAL) IV SLOW PU ONE (23:50)
[2018-10-24 00:03] LABS: TSH (Thyroid Stimulating Horm) 4.33 mcIU/mL (0.34-5.60)
[2018-10-24] MEDS ORDERED: NS 0.9% 1000 ML* 1,000 ML IV ONE (00:08)
[2018-10-24] MEDS ORDERED: Sodium Bicarbonate 8.4%* 50 ML SYRINGE IV ONE (00:17)
[2018-10-24 00:29] LABS: Urine Appearance Clear; Urine Bacteria Absent (Absent); Urine Bilirubin Negative (Negative); Urine Blood 1+ (Negative); Urine Color Colorless; Urine Glucose Negative (Negative); Urine Ketones Negative (Negative); Urine Nitrite Negative (Negative); Urine Protein Negative (Negative); Urine Red Blood Cell Trace(0-2/hpf) (Absent); Urine Specific Gravity 1.002 (1.010-1.030); Urine Urobilinogen Negative (Negative); Urine White Blood Cell Absent (Absent)
[2018-10-24] MEDS ORDERED: Midazolam* 1 MG/ML 5 ML VIAL (5 MG) SLOW PUSH ONE (00:51)
[2018-10-24] MEDS ORDERED: Norepinephrine VIAL* 4 MG in NS 0.9% 250 ML* 246 ML IV SCH (01:00)
[2018-10-24] MEDS ORDERED: Norepinephrine 16MCG/ML IVPRE* 4,000 MCG/250 ML BAG IV SCH ×2 (01:00→02:00)
[2018-10-24 01:11] LABS: Barbiturates Urine Screen None Detected (None Detect); Benzodiazepine Urine Screen None Detected (None Detect); Urine Cannabinoids Screen None Detected (None Detect)
[2018-10-24] MEDS: Chlorhexidine MOUTHWASH 0.12%* 15 ML UDC TOPICAL SCH ×5 (02:00→17:29)
[2018-10-24] MEDS ORDERED: Thiamine IV* 100 MG, Folic Acid IV* 1 MG, Multiple Vitamin IV ADULT* 10 ML in NS 0.9% 1... IV ONE (02:00)
[2018-10-24] MEDS: Propofol* 100 ML IV SCH ×5 (02:30→18:02)
[2018-10-24] MEDS: Norepinephrine VIAL* 4 MG in NS 0.9% 250 ML* 246 ML IV SCH ×2 (02:38→16:35)
[2018-10-24 03:00] LABS: ABS Basophils 0 10^3/ul (0-0.2); ABS Eosinophils 0 10^3/ul (0-0.6); ABS Lymphocytes 1.5 10^3/ul (1.0-4.8); ABS Monocytes 0.5 10^3/ul (0-0.8); ABS Neutrophils 5.3 10^3/ul (1.5-7.7); ABS Nucleated RBC 0 10^3/ul; Eosinophil % 0.5 %; Hematocrit 35 % (35-47); Hemoglobin 11.7 g/dl (12.0-16.0); Lymphocyte % 20.5 %; Mean Corpuscular HGB Conc 34 g/dl (31-36); Mean Corpuscular Hemoglobin 33 pg (27-31); Mean Corpuscular Volume 98 fL (80-97); Mean Platelet Volume 6.8 fL (7.4-10.4); Nucleated Red Blood Cells % 0; Platelet Count 227 10^3/ul (150-450); Red Blood Count 3.53 10^6/ul (4.00-5.40); Red Cell Distribution Width 12 % (10.5-15); White Blood Count 7.3 10^3/ul (3.5-10.8)
[2018-10-24 03:13] LABS: INR 0.85 (0.77-1.02)
[2018-10-24 03:14] LABS: BUN/Creatinine Ratio 13.3 (8-20); Calcium 7.2 mg/dL (8.6-10.3); EGFR Non-African American 117.4 (>60); Magnesium 1.7 mg/dL (1.9-2.7); Potassium 3.7 mmol/L (3.5-5.0)
[2018-10-24] MEDS ORDERED: Midazolam* 1 MG/ML 10 ML VIAL (10 MG) IV ONE (04:52)
[2018-10-24] MEDS ORDERED: Midazolam* 1 MG/ML 10 ML VIAL (10 MG) ONE (04:53)
--- NOTE | 2018-10-24 06:03 | HP ---
HISTORY AND PHYSICAL: DATE OF ADMISSION: To ICU 10/24/18 PRIMARY CARE PROVIDER: Dr. Robbin Rosa, [facility]. REASON FOR PRESENTATION: Drug overdose, altered mental status. HISTORY OF PRESENT ILLNESS: The patient is a 28-year-old female with a history of bipolar disorder, history of EtOH abuse, and prior hospitalization for alcohol withdrawal. The patient is not able to provide any history at this time due to being intubated with altered mental status. History obtained from the patient's significant other who is at bedside, ED provider, and also from review of the chart. The patient was brought into the ED today for evaluation of drug overdose. The patient was drinking all day as per her significant other. The patient has taken handful of pills as per the patient's significant other. She might have taken lamotrigine, amitriptyline, and propranolol. Her alcohol level was also significantly elevated on arrival. The patient's significant other drove her to the fire station at approximately 2140. She was awake upon arrival and while being transferred out of her car to the ambulance, she fell out of the car and had hit the right side of her face on the pavement. IV was initiated by EMS, 1 L of normal saline was initiated. Blood glucose at that time was 144, and she was brought into the emergency room for further evaluation. The patient was unresponsive upon arrival, was intubated in the ED. She was found to have laceration in the right forehead area. She was unresponsive at that time. The patient was successfully intubated and received Versed and succinylcholine and etomidate to facilitate this intubation. Given history of beta-will overdose, poison center was contacted. The patient was given 50 mg of activated charcoal through NG tube. The patient received another liter of normal saline bolus. EKG was obtained at bedside, which showed QT interval of 426, QRS of 125 with sinus rhythm with left axis deviation. She has received 2 amps of bicarb at that time also. Repeat EKG showed QRS duration slightly improved to 122. She had another EKG repeated at midnight, which showed a QRS duration of 123. The patient was found to be on hypotensive and was initiated on Levophed; initially required 10 mcg. Levophed dose was then lowered to 5 mcg and has received 4 mg of glucagon by that time. The patient received 2.5 mg of Versed and 50 mcg of fentanyl at 2350. Overall, total of 4 mg of glucagon were administered by 2354. The patient also noted to be hypotensive and Walt Hugger was placed. Urine output has been adequate. Further evaluation including laboratory workup did not reveal elevated white count. Arterial blood gas analysis revealed respiratory acidosis with pCO2 of 47 and the pH of 7.34. Sodium was 134, potassium within normal limits. Lactic acid within normal limits. LFT is slightly elevated. Bicarb was 20 on BMP. Glucose was 149. Drug screen did reveal alcohol level of 360. Chest x-ray performed on admission was personally reviewed by me. ET tube in good positioning. Right IJ in good positioning, NG tube also in optimal positioning. PAST MEDICAL HISTORY: 1. Bipolar disorder. 2. Mitral valve disease, like prolapsed. 3. Bundle-branch black. 4. Neurocardiogenic syncope with multiple ED evaluations. 5. Orthostatic hypotension. 6. History of EtOH abuse. PAST SURGICAL HISTORY: Status post excision of lesions on left upper extremity. MEDICATIONS: At home: 1. Lamotrigine 100 mg p.o. b.i.d. 2. Benadryl 25 mg p.o. q.6 p.r.n. 3. Potassium chloride tablets 20 mEq p.o. b.i.d. 4. Nicotine patch transdermally. 5. Nicotine inhaler. 6. Nicotine gum. 7. Multivitamins 1 tablet daily. 8. Midodrine 5 mg b.i.d. 9. Magnesium oxide 400 mg daily. 10. Gabapentin 600 mg p.o. t.i.d. 11. Folic acid 1 mg p.o. daily. 12. Amoxicillin 875 mg p.o. b.i.d. 13. Amitriptyline 25 mg p.o. at bedtime. 14. Acetaminophen 650 mg p.o. q.4 hours p.r.n. ALLERGIES: No known drug allergies. FAMILY HISTORY: Unable to obtain at this time. SOCIAL HISTORY: Smoking history present. Currently, the patient is on nicotine supplementation, might be attempting to quit. History of alcohol abuse in the past. No report of illicit drug use. The patient's significant other is at bedside. REVIEW OF SYSTEMS: Unable to accomplish secondary to the patient's intubated status. PHYSICAL EXAMINATION GENERAL: The patient in bed in no apparent distress; the patient withdraws extremities to painful stimuli. VITAL SIGNS: Temperature 96.1, heart rate 72 beats per minute, respiratory rate 16 per minute, O2 sat 99% on 40% FiO2 on the ventilator, blood pressure 120 /85, end- tidal CO2 of 35. HEENT: ET tube in place. Pupils are reactive. Oral exam: Mucous membranes are moist. The patient with laceration to the right side of the forehead and face. CHEST: Wheezing on auscultation bilaterally. CARDIOVASCULAR: S1, S2 present, regular. No murmurs. ABDOMEN: Soft, nontender, and nondistended. Bowel sounds present. EXTREMITIES: Normal range of motion, extremities are cold. NEURO: Unresponsive. SKIN: No rash other than the abrasion in the face. No other abnormalities. DIAGNOSTIC STUDIES/LAB DATA: WBC count 7.7, hemoglobin 13.7, hematocrit 40, platelet count 344. Blood gas analysis with a pH of 7.34, pCO2 of 47, pO2 91, bicarb of 24, O2 sat 98% on 40% FiO2. Sodium 134, potassium 3.7, chloride 104, bicarb 20, BUN 9, creatinine 0.67, lactic acid 1.7. Alcohol level of 316. Chest x-ray personally reviewed by me; as described above in HPI. ASSESSMENT AND PLAN: [id number] female with history of bipolar disorder, admitted after suicidal attempt and overdose with unknown dose of medications; lamotrigine, propranolol, amitriptyline at approximately 2130 or an hour before arrival to the emergency room. The patient was unresponsive on arrival, was intubated. Poison Control was contacted and the patient received bicarb and glucagon for beta-will overdose. As per EMS report, the patient has been vomiting. 1. Neurologic: Drug overdose, suicide attempt, alcohol overdose. The patient is unresponsive, pupils equal and reactive to light, and withdraws extremities to painful stimuli. Suicide note found in the patient's underclothes. The patient has received sedation with Versed and fentanyl. Aspiration and seizure precautions. Keep the head of the bed elevated. The patient also started on thiamine and folate given history of EtOH abuse. 2. Cardiovascular: The patient with overdose of unknown quantity of lamotrigine, amitriptyline, and propranolol. Poison Control was contacted and recommendations have been followed. The patient has received glucagon and bicarbonate as per recommendations. She also received activated charcoal. QRS is mildly prolonged and is being monitored. She has received a total 4 mg of glucagon. Intense insulin protocol was in place. EKG will be monitored q.1 hourly and we will dose glucagon and bicarb as needed. The patient is started on Levophed, currently requiring 5 mcg. The patient so far received 4 amps of bicarb and 4 mg of glucagon and 2 L of IV fluid. 3. Respiratory: The patient intubated for airway protection. The patient with expiratory wheeze on auscultation, likely secondary to history of smoking and also beta-will overdose. She is receiving bronchodilators q.4 hours p.r.n. Respiratory mechanics are acceptable. Vent bundle was ordered. I will obtain repeat blood gas. Will monitor end-tidal CO2. 4. GI: The patient had NG tube placed and received activated charcoal. Will keep the patient n.p.o. until able to get off of vasopressors. 5. Renal: Urine output is acceptable. No significant electrolyte abnormalities at this time. We will monitor potassium closely given use of glucagon. 6. Heme: Hemoglobin within normal limits. No leukocytosis. 7. Infectious Disease: The patient is on amoxicillin at home unclear reason. No signs of sepsis at this time. Lactate within normal limits. 8. Endo blood sugars being monitored since the patient receiving glucagon. Will monitor blood glucose q.1 hour until stable. LFTs are mildly elevated. The patient with history of alcohol abuse. Will monitor closely at this time. DVT prophylaxis. Full code. IV access right IJ placed in the ED. GI prophylaxis added. The patient's boyfriend updated at bedside. TIME SPENT: Total time of 60 minutes spent on admission. [id number]/[facility] #: [id number] CRISTY
[2018-10-24] MEDS: Heparin VIAL(*) 5000 UNITS/ML VIAL (FIVE THOUSAND) SUBCUT SCH ×3 (06:21→21:05)
[2018-10-24] MEDS ORDERED: Magnesium Sulfate 2 GM IV* 2 GM/50 ML BAG IVPB ONE (08:37)
[2018-10-24] MEDS ORDERED: Famotidine IV * 20 MG in NS 0.9% 100 ML* 100 ML IVPB SCH (09:00)
[2018-10-24] MEDS: NS 0.9% 1000 ML* 1,000 ML IV SCH ×3 (09:09→23:43)
[2018-10-24] MEDS: fentaNYL* 50 MCG/ML 2 ML VIAL (100 MCG VIAL) IV SLOW PU ONE (09:40)
[2018-10-24] MEDS: Famotidine IV* 10 MG/ML 2 ML (20 mg) IV SLOW PU SCH (10:13)
[2018-10-24 12:38] LABS: Albumin 3.2 g/dL (3.2-5.2); Albumin/Globulin Ratio 1.5 (1-3); BUN/Creatinine Ratio 7.8 (8-20); Globulin 2.1 g/dL (2-4); Magnesium 2.3 mg/dL (1.9-2.7); Potassium 3.6 mmol/L (3.5-5.0); Total Bilirubin 0.3 mg/dL (0.2-1.0); Total Protein 5.3 g/dL (6.4-8.9)
--- NOTE | 2018-10-24 15:25 | ED ---
Progress - Progress Note Progress Note: Final radiology read indicates NG tube is too far advanced. Provider acknowledges this as well. Repeat chest x-ray reveals NG tube in appropriate position. No further action at this time. Course/Dx - Course Course Of Treatment: This patient is a 28 year old F brought in by ambulance to [facility] with a chief complaint of OD on an unknown amount of Lamotrigine, Amitriptyline, and Propanolol at approximately 21:30, 1 hour before arrival. Hx obtained from from EMS and patients significant other. Pt has hx depression. Patients significant other stated he got home and pt told him that she was leaving him and she had taken the specified medications. EMS report the patient s drove her to the [place] station. EMS note that the patient fell while getting out of her husbands truck and hit her head. 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 Patient is unresponsive upon arrival to [facility]. EMS report the patient has been vomiting. Intubation was performed immediately at 22 :40 using a 7.5 cm orotracheal tube and 5 mg Versed. Breath sounds post- procedure are equal bilaterally. 18 Turkish NG tube placed and position confirmed with auscultation and XR. CXR at 22:51 reveals, per ED physician, ET tube above jessenia. NG tube is too far in the duodenum. Exam post-procedure reveals pupils equal and reactive. Pt is sedated. Heart is nml, abd is nml, and her extremities are cold. A suicide note was found in the patients bra. An EKG at 22:51 reveals sinus rhythm at 77 bpm with prolonged QRS. [employer] Pickle Maker was paged at 23:00. We discussed patient care at 23:[address] Gopi Cunha, strategic planner, and they recommended sodium bicarb as needed for prolonged QRS. 1 trial dose of glucagon 4 mg. He said if pt is still hypotensive or bradycardic after 1 dose, pt needs to be on vasopressor. An EKG at 23:19 reveals sinus rhythm at 73 bpm with prolonged QRS. Right triple lumen internal jugular central line was placed at 00:00 with betadine prep, sterile drapes and sterile dressing applied. Post-position there is good blood return and it is sutured. CXR at 00:08 reveals, per ED physician, right triple lumen internal jugular catheter in place with tip distal to superior vena cava. No pneumothorax. An EKG at 00:03 reveals sinus rhythm at 73 bpm with prolonged QRS. After the third EKG, QRS is still above 120. Pt did receive 4 amp of bicarb, 4 mg glucagon, 2 L IV fluid saline. Pt was still hypotensive, pt is now on levophred. We discussed patient care with Dr. Zaldivar, hospitalist, and they recommend we discuss the case with Dr. Garcia, ICU. At 00:17 we discussed patient care with Dr. Garcia, ICU, and they agreed to discuss the case with Dr. Zaldivar, hospitalist. In the ED course the patient was given IV fluids, activated charcoal, fentanyl, amidate , anectine, glucagen, levophed, sodium bicarbonate, and Versed. 100 minutes of critical care time were performed. Dx drug OD, EtOH intoxication, and suicide attempt. Patient will be admitted to [facility] ICU. - Diagnoses Provider Diagnoses: Suicide attempt, Drug overdose, Alcohol intoxication - Provider Notifications Time Discussed With Above Provider: 23:14 Instructed by Provider To: Other - Dr. Cunha recommended ___ . Discussed care at 00:[address] Garcia, ICU, who recommended - Critical Care Time Critical Care Time: 75-104 min - 100 minutes Discharge - Sign-Out/Discharge Documenting (check all that apply): Post-Discharge Follow Up - Discharge Plan Condition: Critical Disposition: ADMITTED TO [facility] - Billing Disposition and Condition Condition: CRITICAL Disposition: Admitted to [facility]
[2018-10-24] MEDS ORDERED: Calcium Gluconate INJ* 1 GM in NS 0.9% 100 ML* 100 ML IVPB ONE (15:30)
--- NOTE | 2018-10-24 15:30 | PN ---
Progress Note - Progress Note Date of Service: 10/24/18 - [facility] progress note Note: Pt seen and examined multiple times through the day. Pt had episodes of agitation that required increased propofol and Fentanyl. Prolonged QRS normalized. Was able to come off Levophed. Active Medications Generic Name Dose Route Start Last Admin Trade Name Freq PRN Reason Stop Dose Admin Chlorhexidine Gluconate 15 ml 10/24/18 02:00 10/24/18 13:24 Peridex Mouth Wash 0.12%* TOPICAL 15 ml Q4H SAMANTHA Administration Famotidine 20 mg 10/24/18 09:00 10/24/18 10:13 Pepcid Iv* IV SLOW PU 20 mg DAILY SAMANTHA Administration Fentanyl Citrate 50 mcg 10/24/18 10:08 Fentanyl* IV SLOW PU Q4H PRN DISCOMFORT Heparin Sodium (Porcine) 5,000 units 10/24/18 06:00 10/24/18 13:57 Heparin Vial(*) SUBCUT 5,000 units Q8HR SAMANTHA Administration Fentanyl Citrate 2,500 mcg in 50 mls @ 1 mls/hr 10/23/18 23:45 10/24/18 02:33 Fentanyl Infusion Bag 50 Mcg/Ml 50 Ml IV Not Given Q72H SAMANTHA 50 MCG/HR Midazolam HCl 100 mg/ Sodium 100 mls @ 2 mls/hr 10/23/18 23:45 Chloride IV .Q24HR SAMANTHA 2 MG/HR Propofol 100 mls @ 2.123 mls/hr 10/24/18 02:00 10/24/18 15:18 Diprivan* IV 38.9 mls/hr PER RATE SAMANTHA Administration Protocol 5 MCG/KG/MIN Sodium Chloride 1,000 mls @ 150 mls/hr 10/24/18 01:30 10/24/18 09:09 Ns 0.9% 1000 Ml* IV 150 mls/hr PER RATE SAMANTHA Administration Norepinephrine Bitartrate 4 mg 250 mls @ 18.75 mls/hr 10/24/18 02:00 02:38 / Sodium Chloride IV 18.75 mls/hr Q13H SAMANTHA Administration Protocol 5 MCG/MIN Calcium Gluconate 1 gm/ Sodium 110 mls @ 110 mls/hr 10/24/18 15:30 Chloride IVPB 10/24/18 16:29 ONCE ONE Vital Signs Temp Pulse Resp BP Pulse Ox 99.7 F 101 30 105/59 98 10/24/18 12:15 10/24/18 12:15 10/24/18 09:40 10/24/18 12:15 10/24/18 12:15 O/E: Pt is sedated on ventilator HEENT: ETT+, mucus membranes moist, laceration on forehead Lungs: Scattered wheeze+ CVS: S1, S2+, regular Abd: Soft, BS+ Ext: Moves to painful stimuli Neuro: Sedated, was agitated earlier Laboratory Results - last 24 hr 10/23/18 10/23/18 10/23/18 22:42 22:42 22:42 WBC 7.7 RBC 4.11 Hgb 13.7 Hct 40 MCV 98 H MCH 33 H MCHC 34 RDW 12 Plt Count 344 MPV 6.8 L Neut % (Auto) 40.6 Lymph % (Auto) 46.3 Cloud % (Auto) 9.9 Eos % (Auto) 2.6 Baso % (Auto) 0.6 Absolute Neuts (auto) 3.1 Absolute Lymphs (auto) 3.5 Absolute Monos (auto) 0.8 Absolute Eos (auto) 0.2 Absolute Basos (auto) 0 Absolute Nucleated RBC 0 Nucleated RBC % 0 INR (Anticoag Therapy) APTT Patient Temperature ABG pH ABG pH (Temp Correct) ABG pCO2 ABG pCO2 (Temp Corrct ABG pO2 ABG pO2 (Temp Correct ABG HCO3 ABG O2 Saturation ABG Base Excess Respiration Rate O2 Delivery Device Ventilator Type Vent Mode FiO2 Inspiratory Time PEEP Pressure Support Pressure Control EPAP IPAP BiPAP Sodium 134 L Potassium 3.7 Chloride 104 Carbon Dioxide 20 L Anion Gap 10 BUN 9 Creatinine 0.67 Est GFR ( Amer) 125.0 Est GFR (Non-Af Amer) 103.3 BUN/Creatinine Ratio 13.4 Glucose 149 H POC Glucose (mg/dL) Lactic Acid 1.7 Calcium 8.5 L Magnesium Total Bilirubin 0.20 AST 69 H ALT 81 H Alkaline Phosphatase 54 Total Creatine Kinase 106 Troponin I 0.00 Total Protein 7.0 Albumin 3.9 Globulin 3.1 Albumin/Globulin Ratio 1.3 TSH 4.33 Beta HCG, Quant < 0.60 Urine Color Urine Appearance Urine pH Ur Specific [place] Urine Protein Urine Ketones Urine Blood Urine Nitrate Urine Bilirubin Urine Urobilinogen Ur Leukocyte Esterase Urine WBC (Auto) Urine RBC (Auto) Urine Bacteria Urine Glucose Salicylates < 2.50 Urine Opiates Screen Acetaminophen < 15 Ur Barbiturates Screen Ur Phencyclidine Scrn Ur Amphetamines Screen U Benzodiazepines Scrn Urine Cocaine Screen U Cannabinoids Screen Serum Alcohol 360 H 10/23/18 10/24/18 10/24/18 23:14 00:01 00:01 WBC RBC Hgb Hct MCV MCH MCHC RDW Plt Count MPV Neut % (Auto) Lymph % (Auto) Cloud % (Auto) Eos % (Auto) Baso % (Auto) Absolute Neuts (auto) Absolute Lymphs (auto) Absolute Monos (auto) Absolute Eos (auto) Absolute Basos (auto) Absolute Nucleated RBC Nucleated RBC % INR (Anticoag Therapy) APTT Patient Temperature Not Reportable ABG pH 7.34 L ABG pH (Temp Correct) ABG pCO2 47 H ABG pCO2 (Temp Corrct ABG pO2 91 ABG pO2 (Temp Correct ABG HCO3 24.1 ABG O2 Saturation 98.4 H ABG Base Excess -0.8 Respiration Rate 12 O2 Delivery Device vent Ventilator Type 450 Vent Mode cmv FiO2 40 Inspiratory Time Not Reportable PEEP 5 Pressure Support Not Reportable Pressure Control Not Reportable EPAP Not Reportable IPAP Not Reportable BiPAP Not Reportable Sodium Potassium Chloride Carbon Dioxide Anion Gap BUN Creatinine Est GFR ( Amer) Est GFR (Non-Af Amer) BUN/Creatinine Ratio Glucose POC Glucose (mg/dL) Lactic Acid Calcium Magnesium Total Bilirubin AST ALT Alkaline Phosphatase Total Creatine Kinase Troponin I Total Protein Albumin Globulin Albumin/Globulin Ratio TSH Beta HCG, Quant Urine Color Colorless Urine Appearance Clear Urine pH 6.0 Ur Specific [place] 1.002 L Urine Protein Negative Urine Ketones Negative Urine Blood 1+ A Urine Nitrate Negative Urine Bilirubin Negative Urine Urobilinogen Negative Ur Leukocyte Esterase Negative Urine WBC (Auto) Absent Urine RBC (Auto) Trace(0-2/hpf) Urine Bacteria Absent Urine Glucose Negative Salicylates Urine Opiates Screen None detected Acetaminophen Ur Barbiturates Screen None detected Ur Phencyclidine Scrn None detected Ur Amphetamines Screen None detected U Benzodiazepines Scrn None detected Urine Cocaine Screen None detected U Cannabinoids Screen None detected Serum Alcohol 10/24/18 10/24/18 10/24/18 02:35 02:44 02:44 WBC RBC Hgb Hct MCV MCH MCHC RDW Plt Count MPV Neut % (Auto) Lymph % (Auto) Cloud % (Auto) Eos % (Auto) Baso % (Auto) Absolute Neuts (auto) Absolute Lymphs (auto) Absolute Monos (auto) Absolute Eos (auto) Absolute Basos (auto) Absolute Nucleated RBC Nucleated RBC % INR (Anticoag Therapy) 0.85 APTT 26.0 Patient Temperature Not Reportable ABG pH 7.35 ABG pH (Temp Correct) Not Reportable ABG pCO2 45 ABG pCO2 (Temp Corrct Not Reportable ABG pO2 107 H ABG pO2 (Temp Correct Not Reportable ABG HCO3 24.0 ABG O2 Saturation 99.9 H ABG Base Excess -1.1 Respiration Rate 12 O2 Delivery Device Ventilator Type 450 Vent Mode cmv FiO2 40 Inspiratory Time Not Reportable PEEP 5 Pressure Support Not Reportable Pressure Control Not Reportable EPAP Not Reportable IPAP Not Reportable BiPAP Not Reportable Sodium 141 Potassium 3.7 Chloride 107 Carbon Dioxide 26 Anion Gap 8 BUN 8 Creatinine 0.60 Est GFR ( Amer) 142.0 Est GFR (Non-Af Amer) 117.4 BUN/Creatinine Ratio 13.3 Glucose 176 H POC Glucose (mg/dL) Lactic Acid Calcium 7.2 L Magnesium 1.7 L Total Bilirubin AST ALT Alkaline Phosphatase Total Creatine Kinase Troponin I Total Protein Albumin Globulin Albumin/Globulin Ratio TSH Beta HCG, Quant Urine Color Urine Appearance Urine pH Ur Specific [place] Urine Protein Urine Ketones Urine Blood Urine Nitrate Urine Bilirubin Urine Urobilinogen Ur Leukocyte Esterase Urine WBC (Auto) Urine RBC (Auto) Urine Bacteria Urine Glucose Salicylates Urine Opiates Screen Acetaminophen Ur Barbiturates Screen Ur Phencyclidine Scrn Ur Amphetamines Screen U Benzodiazepines Scrn Urine Cocaine Screen U Cannabinoids Screen Serum Alcohol 10/24/18 10/24/18 10/24/18 02:44 08:29 12:06 WBC 7.3 RBC 3.53 L Hgb 11.7 L Hct 35 MCV 98 H MCH 33 H MCHC 34 RDW 12 Plt Count 227 MPV 6.8 L Neut % (Auto) 72.3 Lymph % (Auto) 20.5 Cloud % (Auto) 6.2 Eos % (Auto) 0.5 Baso % (Auto) 0.5 Absolute Neuts (auto) 5.3 Absolute Lymphs (auto) 1.5 Absolute Monos (auto) 0.5 Absolute Eos (auto) 0 Absolute Basos (auto) 0 Absolute Nucleated RBC 0 Nucleated RBC % 0 INR (Anticoag Therapy) APTT Patient Temperature ABG pH ABG pH (Temp Correct) ABG pCO2 ABG pCO2 (Temp Corrct ABG pO2 ABG pO2 (Temp Correct ABG HCO3 ABG O2 Saturation ABG Base Excess Respiration Rate O2 Delivery Device Ventilator Type Vent Mode FiO2 Inspiratory Time PEEP Pressure Support Pressure Control EPAP IPAP BiPAP Sodium 140 Potassium 3.6 Chloride 107 Carbon Dioxide 28 Anion Gap 5 BUN 5 L Creatinine 0.64 Est GFR ( Amer) 131.8 Est GFR (Non-Af Amer) 109.0 BUN/Creatinine Ratio 7.8 L Glucose 92 POC Glucose (mg/dL) 123 H Lactic Acid Calcium 7.0 L Magnesium 2.3 Total Bilirubin 0.30 AST 42 H ALT 60 H Alkaline Phosphatase 40 Total Creatine Kinase Troponin I Total Protein 5.3 L Albumin 3.2 Globulin 2.1 Albumin/Globulin Ratio 1.5 TSH Beta HCG, Quant Urine Color Urine Appearance Urine pH Ur Specific [place] Urine Protein Urine Ketones Urine Blood Urine Nitrate Urine Bilirubin Urine Urobilinogen Ur Leukocyte Esterase Urine WBC (Auto) Urine RBC (Auto) Urine Bacteria Urine Glucose Salicylates Urine Opiates Screen Acetaminophen Ur Barbiturates Screen Ur Phencyclidine Scrn Ur Amphetamines Screen U Benzodiazepines Scrn Urine Cocaine Screen U Cannabinoids Screen Serum Alcohol A/P: Pt to continue on ventialtor tonight. Given need for Levophed and unclear mental status and t1/2 of meds ingested, will keep pt sedated on ventilator today Will hold sedation and plan for extubation tomorrow if all parameters for weaning are met. c/w Propofol, Fentanyl prn Ventilator settings optimal. Pulm toilet. Bronchodialtors prn. Pt with current smoking status QRS less than 120 this am. Will rpt EKG in evening and then daily. Has not needed Glucagon and bicarb Electrolyte abnormalities are repleted NPO for now UO good Frequent turning and positioning DVT/GI Px Full code Pts boy friend at bedside and was updated on plan of care
[2018-10-24] MEDS: fentaNYL* 50 MCG/ML 2 ML VIAL (100 MCG VIAL) IV SLOW PU PRN ×2 (16:01→19:36)
[2018-10-24] MEDS ORDERED: Dexmedetomidine* 400 MCG in NS 0.9% 100 ML* 96 ML IVPB SCH (17:00)
[2018-10-24] MEDS ORDERED: Propranolol TAB* 10 MG PO PRN (20:13)
[2018-10-24] MEDS ORDERED: PROCHLORPERAZINE INJ 5 MG/ML 2 ML VIAL IV PRN (20:27)
[2018-10-24] MEDS ORDERED: PROCHLORPERAZINE INJ 5 MG/ML 2 ML VIAL ONE (20:28)
[2018-10-24] MEDS ORDERED: Mouth Piece, Nicotine* 1 EACH CARTRIDGE INH PRN (20:41)
[2018-10-24] MEDS: Nicotine Inhaler* 10 MG AMP INH PRN (21:05)
[2018-10-24] MEDS ORDERED: lamoTRIgine TAB(*) 25 MG PO SCH (22:00)
[2018-10-24] MEDS: lamoTRIgine TAB(*) 100 MG PO SCH (22:43)
[2018-10-25] MEDS: Heparin VIAL(*) 5000 UNITS/ML VIAL (FIVE THOUSAND) SUBCUT SCH ×3 (06:13→21:18)
[2018-10-25] MEDS: NS 0.9% 1000 ML* 1,000 ML IV SCH (06:13)
[2018-10-25 07:15] LABS: Albumin/Globulin Ratio 1.2 (1-3); BUN/Creatinine Ratio 5.7 (8-20); Calcium 7.1 mg/dL (8.6-10.3); EGFR Non-African American 135.4 (>60); Globulin 2.6 g/dL (2-4); Indirect Bilirubin 0.6 mg/dL (0.3-1.0); Magnesium 1.9 mg/dL (1.9-2.7); Potassium 3.2 mmol/L (3.5-5.0); Total Bilirubin 0.7 mg/dL (0.2-1.0); Total Protein 5.6 g/dL (6.4-8.9)
[2018-10-25] MEDS ORDERED: Calcium Gluconate INJ* 2 GM in NS 0.9% 100 ML* 100 ML IVPB ONE (08:30)
[2018-10-25] MEDS: lamoTRIgine TAB(*) 100 MG PO SCH ×2 (08:54→20:20)
[2018-10-25] MEDS: Famotidine IV* 10 MG/ML 2 ML (20 mg) IV SLOW PU SCH (08:55)
[2018-10-25] MEDS: KCL 20 MEQ/100 ML IVPREMIX* 20 MEQ/100 ML BAG IV SCH ×2 (08:57→10:41)
--- NOTE | 2018-10-25 09:37 | PN ---
Progress Note - Progress Note Date of Service: 10/25/18 - Transfer summary Note: Pt seen and examined at bedside. Pt was extubated last evening. Doing well, not in distress. c/o sore throat and intermittent cough. Denied feeling depressed. Pt was admitted after suicidal attempt when she overdosed on Lamictal, Amitryptiline, Propranolol. Pt was intubated in ED after arrival, poison control was contacted and she has received Glucagan and Bicarbonate. QRS duration normalized. She became more alert inspite of Propofol, was able to communicate with writing, and was extubated last evening. She has remained stable since. PMHx/PSx: Bipolar disorder ETOH abuse, was in rehab in past Mitral valve prolapse Bundle branch block Orthostatic hypotension Excision of lesion in LUE All: NKDA Social Hx: Current smoker, 1/2 pack per day, ETOH abuse, no drug abuse. FHx: Non-contributory Active Medications Generic Name Dose Route Start Last Admin Trade Name Freq PRN Reason Stop Dose Admin Device 1 each 10/24/18 20:41 10/24/18 21:05 Nicotine Mouth Piece* INH 1 each ONCE PRN Administration CRAVING Famotidine 20 mg 10/24/18 09:00 10/25/18 08:55 Pepcid Iv* IV SLOW PU 20 mg DAILY SAMANTHA Administration Heparin Sodium (Porcine) 5,000 units 10/24/18 06:00 10/25/18 06:13 Heparin Vial(*) SUBCUT 5,000 units Q8HR SAMANTHA Administration Potassium Chloride 20 meq in 100 mls @ 50 mls/hr 10/25/18 08:00 10/25/18 08: 57 Potassium Chloride 20 Meq/100 Ml Ivpremix* IV 10/25/18 11:59 100 mls/hr Q2H SAMANTHA Administration Lamotrigine 100 mg 10/24/18 23:00 10/25/18 08:54 Lamictal Tab(*) PO 100 mg BID SAMANTHA Administration Nicotine 10 mg 10/24/18 20:37 10/24/18 21:05 Nicotine Inhaler* INH 10 mg Q2H PRN Administration CRAVING Prochlorperazine Edisylate 5 mg 10/24/18 20:27 10/24/18 20:29 Compazine Inj* IV 5 mg Q6H PRN Administration NAUSEA/VOMITING Propranolol HCl 10 mg 10/24/18 20:13 Inderal Tab* PO TID PRN Anxiety/Palpitations Vital Signs Temp Pulse Resp BP Pulse Ox 99.9 F 81 18 100/53 98 10/25/18 07:01 10/25/18 07:01 10/25/18 07:01 10/25/18 07:00 10/25/18 07:01 O/E: Pt in NAD HEENT: PERRLA, no JVD, bruise on her face Lungs: Good a/e b/l CVS: S1, S2+, regular Abd: Soft, BS+ Ext: Normal ROM Neuro: No focal deficits Skin: No rash Laboratory Results - last 24 hr 10/24/18 10/25/18 10/25/18 12:06 06:15 06:15 Sodium 140 137 Potassium 3.6 3.2 L Chloride 107 105 Carbon Dioxide 28 25 Anion Gap 5 7 BUN 5 L 3 L Creatinine 0.64 0.53 Est GFR ( Amer) 131.8 163.9 Est GFR (Non-Af Amer) 109.0 135.4 BUN/Creatinine Ratio 7.8 L 5.7 L Glucose 92 95 Calcium 7.0 L 7.1 L Ionized Calcium 0.93 L Magnesium 2.3 1.9 Total Bilirubin 0.30 0.70 Direct Bilirubin 0.10 Indirect Bilirubin 0.6 AST 42 H 30 ALT 60 H 46 Alkaline Phosphatase 40 58 Total Protein 5.3 L 5.6 L Albumin 3.2 3.0 L Globulin 2.1 2.6 Albumin/Globulin Ratio 1.5 1.2 Brief Summary of hospitalization/Transfer summary: 28 y o f admitted after overdose in suicidal attempt when she overdosed on Lamictal, Amitryptiline, Propranolol. Pt was intubated in ED after arrival, poison control was contacted and she has received Glucagan and Bicarbonate. QRS duration normalized. She became more alert inspite of Propofol, was able to communicate with writing, and was extubated last evening. She has remained stable since. She has briefly needed Levophed while on Ventilator and on sedation. Pt remained stable since last night. She is asymtpomatic this am. Able to tolerate regular diet. Electrolyte derangements corrected. She will remain on Nicotine supplementation given smoking history. She has received smoking cessation education. QRS normalized, no acute EKG changes. Hemodynamically stable. No neurological changes. Psychiatry consultation requested. Rt IJ to be removed. OOB to chair Constant observation ordered Pt would need psychiatry clearance prior to discharge DVT/GI Px Full code Pt is stable to be transferred to medical floor under hospitalist service. D/w Dr Keller
[2018-10-25] MEDS: Nicotine Inhaler* 10 MG AMP INH PRN ×2 (15:14→20:21)
[2018-10-25] MEDS ORDERED: Saline NASAL DROPS 0.65%* 1 DROP BTL BOTH NARES PRN (18:38)
[2018-10-26] MEDS: Heparin VIAL(*) 5000 UNITS/ML VIAL (FIVE THOUSAND) SUBCUT SCH ×2 (05:14→12:54)
[2018-10-26] MEDS ORDERED: Potassium Chlor TAB* 20 MEQ TAB.ER PO ONE (08:23)
[2018-10-26 08:58] VITALS: BP 112/65
[2018-10-26] MEDS: Famotidine IV* 10 MG/ML 2 ML (20 mg) IV SLOW PU SCH (09:02)
[2018-10-26] MEDS: lamoTRIgine TAB(*) 100 MG PO SCH (09:02)
--- NOTE | 2018-10-26 10:45 | PN ---
Subjective Date of Service: 10/26/18 Interval History: Pt states that she was in rehab for ETOH 1 year ago and relapsed a month ago. Was drinking 6-12 bears daily. When intoxicated she tried to commit suicide. today she is remorseful and has no suicidal ideation. Has a plan with her about how to keep on being sober again. After the intubation has been coughing and c/o sore throat Objective Active Medications: Device (Nicotine Mouth Piece*) 1 each INH ONCE PRN PRN Reason: CRAVING Last Admin: 10/24/18 21:05 Dose: 1 each Famotidine (Pepcid Iv*) 20 mg IV SLOW PU DAILY [facility] Last Admin: 10/26/18 09:02 Dose: 20 mg Heparin Sodium (Porcine) (Heparin Vial(*)) 5,000 units SUBCUT Q8HR [facility] Last Admin: 10/26/18 05:14 Dose: 5,000 units Lamotrigine (Lamictal Tab(*)) 100 mg PO BID [facility] Last Admin: 10/26/18 09:02 Dose: 100 mg Nicotine (Nicotine Inhaler*) 10 mg INH Q2H PRN PRN Reason: CRAVING Last Admin: 10/25/18 20:21 Dose: 10 mg Prochlorperazine Edisylate (Compazine Inj*) 5 mg IV Q6H PRN PRN Reason: NAUSEA/VOMITING Last Admin: 10/24/18 20:29 Dose: 5 mg Propranolol HCl (Inderal Tab*) 10 mg PO TID PRN PRN Reason: Anxiety/Palpitations Sodium Chloride (Sodium Chloride 0.65% Nasal Drops*) 2 drop BOTH NARES Q2H PRN PRN Reason: . Vital Signs - 8 hr 10/26/18 10/26/18 10/26/18 03:58 07:13 09:08 Temperature 98.1 F 97.4 F Pulse Rate 78 76 Respiratory 18 16 16 Rate Blood Pressure 113/66 112/65 (mmHg) O2 Sat by Pulse 98 98 Oximetry 10/26/18 09:15 Temperature Pulse Rate Respiratory 16 Rate Blood Pressure (mmHg) O2 Sat by Pulse Oximetry Oxygen Devices in Use Now: None Appearance: 28 yo F in nAD, aAOx3 Eyes: No Scleral Icterus, PERRLA Ears/Nose/Mouth/Throat: NL Teeth, Lips, Gums, Mucous Membranes Moist Neck: NL Appearance and Movements; NL JVP, Trachea Midline Respiratory: Symmetrical Chest Expansion and Respiratory Effort, - - scant b/l lower lung rhonchi Cardiovascular: NL Sounds; No Murmurs; No JVD, RRR Abdominal: NL Sounds; No Tenderness; No Distention, No Hepatosplenomegaly Lymphatic: No Cervical Adenopathy Extremities: No Edema, No Clubbing, Cyanosis Skin: No Nodules or Sclerosis Neurological: Alert and Oriented x 3, NL Muscle Strength and Tone Result Diagrams: 10/24/18 02:44 10/25/18 06:15 Microbiology and Other Data: Microbiology 10/24/18 03:13 Nasal Screen MRSA (PCR) - Final Nasal Mrsa Not Detected Assess/Plan/Problems-Billing Assessment: 28 yo f with h/o bipolar disorder, syncope and alcoholism, started drinking again in the past 1 month and overdosed on amitriptyline, lamictal and propranolol. Was intubated in ICU, extubated 10/24/18 - Patient Problems (1) Overdose Comment: doing well, extubated on 10/24/18 cont 1:1 obs Awaiting psychiatry consult (2) Bipolar 1 disorder, depressed Comment: cont Lamictal. Had been on it post extubation, will get levels (3) DVT prophylaxis Comment: ambulation Status and Disposition: inpatient
--- NOTE | 2018-10-26 15:47 | DS ---
CC: Dr. Rosa; Dr. Ro; Dr. Garcia * DISCHARGE SUMMARY: DATE OF ADMISSION: 10/24/18 DATE OF DISCHARGE: 10/26/18 PRIMARY CARE PROVIDER: Dr. Rosa. DISCHARGE DIAGNOSES: Lamictal, propranolol and amitriptyline overdose as well as alcohol intoxication. SECONDARY DIAGNOSES: 1. History of bipolar disorder. 2. History of syncope and palpitations in the past. MEDICATIONS AT DISCHARGE: Unchanged from admission and include: 1. Multivitamin 1 tablet daily. 2. Coenzyme Q10 200 mg daily. 3. Propranolol 10 mg 3 times a day p.r.n. palpitations. 4. Potassium chloride 20 mEq b.i.d. 5. Mag-Ox 250 mg daily. 6. Lamictal 100 mg b.i.d. 7. Elavil 12.5 mg at bedtime. PROCEDURES DURING THE HOSPITAL STAY: Included intubation on 10/24/18 and extubation on 10/24/18 by the hydrogen plant operations manager. CONSULTATIONS DURING THE HOSPITAL STAY: Included Dr. Garcia from the intensive care unit and Dr. Ro from Psychiatry. HOSPITALIZATION COURSE: Rashida Nunez is a 28-year-old female with history of bipolar disease and alcoholism, who stated that she had been not using any alcohol up to a month and a half ago after her rehab stay for alcohol dependence a year ago. She stated that she rebounded with alcohol approximately a month ago and she was drinking large quantities of beer. While intoxicated on 10/24/18, she attempted to commit suicide and she took several tablets of her prescribed medications, which included Lamictal, Elavil and propranolol. She was placed on respiratory support in the intensive care unit, treated with glucagon in the ICU. She was extubated within 24 hours. She did well post extubation. She was seen by myself on 10/26/18 and denies suicidal ideation. She stated that she remembers "how stupid she was" and she is not going to do it again. She has plans with her boyfriend who is present in her room about followup with [facility] for further treatment of her bipolar disease and history of alcoholism. She was seen by Dr. Ro, who cleared her from psychiatric standpoint. She is going to be discharged home with recommendation to follow up with Dr. Rosa in approximately 4 to 7 days and with [facility]. Social Work consultation is pending at the time of dictation and Social Work is planning to arrange for the patient the followups. Medications at discharge are unchanged from admission and include as above mentioned Lamictal, amitriptyline and propranolol that was okay by Dr. Ro at discharge. For physical exam at the time of discharge, please see daily progress notes. [id number]/[facility] #: [id number] CRISTY
--- NOTE | 2018-10-26 16:53 | CONS ---
CONSULTATION REPORT: DATE OF CONSULT: 10/26/18 ATTENDING PHYSICIAN: Dr. Farzaneh Spaulding. CONSULTING PHYSICIAN: Dr. Harpreet Ro. REASON FOR CONSULT: Intentional overdose. SUBJECTIVE HISTORY: Rashida is a 28-year-old single white female with a history of bipolar 2 disorder as well as chronic alcohol use disorder, who was brought in via ambulance after an episode in which she became intoxicated and took an intentional overdose of an unspecified amount of lamotrigine, amitriptyline and propranolol. The patient was brought to the emergency room where she was intubated and temporarily treated in the intensive care unit. Thereafter, she was medically cleared and brought to the [address] [place] [address] where I meet with her and her live-in boyfriend, named Gopi. The patient appears embarrassed and ashamed to be here in the hospital. She highly regrets this overdose and states that she cannot recall what her thought process was during the overdose given the fact that she was intoxicated. What she does recall is that she had recently lost her wallet, which contained her social security card, identification and credit cards. She has been overwhelmed by other psychosocial stressors as well such as being unemployed, not having custody of her 6-year-old daughter, and her boyfriend being in the middle of a contested divorce with his ex. The patient states that she had run out of propranolol which is prescribed along with her other psychiatric medications by Dr. Rosa at [facility]. When she could not find propranolol, she decided to start drinking. Her blood alcohol content at the time of admission was 360. When I meet with her, she steadfastly denies any thoughts of harming herself and I did confirm with nursing staff that she has not made any further self-harm statements. Her and her boyfriend state that they now have a plan of action to mitigate the risk for further drinking. Apparently, she relapsed on alcohol about 1-1/2 months ago because her boyfriend drinks socially, he would keep small amounts of alcohol on the property. Their plan is that she will resume going to AA meetings and get a community sponsor. He will remove all alcohol from the house and he will take possession of her medications and dove them out on a daily basis as needed. The patient is frustrated by her recent overdose. She is stating that she lost her job in December at the [employer] and is struggled to find work since because she does not have a vehicle of her own. Nevertheless, she denied all neurovegetative symptoms of depression stating that when she takes her medication and does not drink, she functions quite well. At this time, she is interested in counseling in the community, but she is worried that she does not have health insurance. Since she lives in [place], she would qualify for services through [facility]. PAST PSYCHIATRIC HISTORY: The patient was seen in consultation by psychiatrist , Dr. Asad Najera on 01/11/17. At that time, she was receiving alcohol detoxification on the hospitalist service and thereafter was discharged to [facility] where she underwent drug and alcohol rehabilitation. The patient states that she was diagnosed with bipolar 2 roughly 8 years ago when she lived in [place]. She is currently treated with combination of lamotrigine, propranolol, and amitriptyline. SUBSTANCE ABUSE HISTORY: Significant for large amounts of drinking. She has had one prior rehab experience at [facility]. Her relapse was approximately 1-1 /2 months ago. Other than that, she states that she has tried cannabis a handful of times and has smoked a light amount of cigarettes in the past, but not recently. She denies any other illicit substance abuse. PAST MEDICAL HISTORY: Significant for mitral valve disease, right bundle branch block, neurocardiogenic syncope, history of orthostatic hypotension. PAST SURGICAL HISTORY: Excision of lesion from her left upper extremity. CURRENT MEDICATIONS: Include: 1. Amitriptyline 12.5 mg at bedtime. 2. Lamotrigine 100 mg p.o. b.i.d. 3. Propranolol 20 mg twice daily. ALLERGIES: She has no known drug allergies. SOCIAL HISTORY: The patient was born in [place], [place] and lived in various parts of [facility] [place]. She was raised by both parents and she has a younger brother. She graduated from high school and completed 3 quarters of the bachelor's degree, but then dropped out after having a baby. She has a 6- year-old daughter. She has never been , but currently she is in a relationship for the past 2 years with a man who is pending a divorce from a different relationship. Most recently, she worked at [employer], but lost this job in December. She enjoys kayaking, gardening, and being outdoors. MENTAL STATUS EXAMINATION: The patient is a young white female with somewhat short blonde hair. She is clean, well groomed, dressed in a patient gown. She is sitting up in bed and making good eye contact. Speech has a normal rate, tone and volume. Mood appears to be euthymic with full affect. Thought process is linear and goal directed. Thought content is significant for her desire to get into counseling in the outpatient setting. She denies suicidal or homicidal ideations. She denies auditory or visual hallucinations. There is no evidence of paranoid thought process. Insight and judgment are fair given her willingness to pursue behavioral health treatment in the outpatient setting as well as her willingness to go back to AA groups in the community. Cognitively, she is awake and alert with what would appear to be an average intellect. DIAGNOSES: As follows: [place] I: Alcohol use disorder, bipolar disorder type 2. [place] II: Deferred. ASSESSMENT: The patient is a 28-year-old single white female with a history of chronic alcoholism and bipolar 2, who just relapsed on alcohol a month and a half ago. Prior to this admission, she became intoxicated and impulsively took an overdose on several of her medications after not being able to find her propranolol to reduce her anxiety. She does have multiple psychosocial stressors to which I have referred in the subjective history. Mostly, I think that she would benefit from conservative management in the community such as psychotherapy and ongoing substance abuse treatment through Alcoholics Anonymous. The patient is willing to accept these interventions and she has excellent support from her live-in boyfriend. RECOMMENDATIONS TO PRIMARY TEAM: The patient is psychiatrically cleared and I have taken her off one-to-one. I have already consulted social work to see if we can get her an intake appointment at [facility]. In addition, she may benefit from meeting with the Medicaid navigator to get her health insurance reconnected. The patient's boyfriend will remove all alcoholic beverages and take possession of her medications to prevent similar episodes from happening in the future. The patient is strongly encouraged to return to Alcoholics Anonymous treatment in the community and to get a sponsor. At this time, Psychiatry is signing off, but we can be reconsulted in the event of any changes in the patient's presentation. Thank you for the consult. [id number]/[facility] #: [id number] MTDJerald
== END 2018-10-26 14:08 | disposition home or self-care (01) | DRG 812 ==
LOC: ED 22:33 → ICU 10-24 01:01 → MED 10-25 15:06
PROVIDERS: ADMIT Internal Medicine; ATTEND Internal Medicine
PROC: 0BH17EZ Insertion of Endotracheal Airway into Trachea, Via Natural or Artificial Opening (ICD-10-PCS; principal; 2018-10-24)
PROC: 5A1935Z Respiratory Ventilation, Less than 24 Consecutive Hours (ICD-10-PCS; 2018-10-24)
PROC: 05HM33Z Insertion of Infusion Device into Right Internal Jugular Vein, Percutaneous Approach (ICD-10-PCS; 2018-10-24)
DX: T42.6X2A Poisoning by other antiepileptic and sedative-hypnotic drugs, intentional self-harm, initial encounter (principal); F31.9 Bipolar disorder, unspecified; T44.7X2A Poisoning by beta-adrenoreceptor antagonists, intentional self-harm, initial encounter; R41.82 Altered mental status, unspecified; F10.229 Alcohol dependence with intoxication, unspecified; Y90.8 Blood alcohol level of 240 mg/100 ml or more; S01.81XA Laceration without foreign body of other part of head, initial encounter; W17.89XA Other fall from one level to another, initial encounter; I34.1 Nonrheumatic mitral (valve) prolapse; F17.210 Nicotine dependence, cigarettes, uncomplicated; I45.10 Unspecified right bundle-branch block; I95.1 Orthostatic hypotension; Y92.9 Unspecified place or not applicable; Y92.89 Other specified places as the place of occurrence of the external cause; Z79.2 Long term (current) use of antibiotics; Z79.1 Long term (current) use of non-steroidal anti-inflammatories (NSAID); Z79.899 Other long term (current) drug therapy
CPT/HCPCS: 36415; 36600; 70450; 71045; 80048; 80053; 80076; 80307; 80320; 80329; 81003; 81015; 82330; 82550; 82803; 83605; 83735; 84443; 84484; 84702; 85025; 85610; 85730; 87641; 93005; 94003; 99284; A9270-GY; G0480; J0330; J0610; J0780; J1610; J1644; J2250; J2704; J3010; J3411; J3475; J3480

== ENCOUNTER 2024-09-09 06:10 | Inpatient (IN) ==
[2024-09-09 07:08] LABS: ABS Eosinophils 0.1 10^3/uL (0.0-0.5); ABS Lymphocytes 0.8 10^3/uL (1.0-4.8); ABS Monocytes 0.7 10^3/uL (0.0-0.9); ABS Neutrophils 3.7 10^3/uL (1.5-7.6); ABS Nucleated RBC 0.01 10^3/ul; Eosinophil % 1.1 %; Hematocrit 38.4 % (35-45); Hemoglobin 13.2 g/dL (11.5-14.3); Lymphocyte % 14.9 %; Mean Corpuscular Hemoglobin 34.3 pg (27-33); Mean Corpuscular Hgb Conc 34.4 g/dL (31-36); Mean Corpuscular Volume 99.7 fL (80-97); Mean Platelet Volume 7.1 fL (7.5-11.2); Nucleated Red Blood Cells % 0.1 %/100WBC (0.0-0.8); Platelet Count 214 10^3/uL (150-450); Red Blood Count 3.85 10^6/uL (3.63-4.92); Red Cell Distribution Width 12.5 % (12-17); White Blood Count 5.3 10^3/uL (3.8-11.8)
[2024-09-09 07:13] LABS: Urine Appearance Clear; Urine Bilirubin Negative (Negative); Urine Blood Negative (Negative); Urine Color Colorless; Urine Glucose Negative (Negative); Urine Ketones Negative (Negative); Urine Nitrite Negative (Negative); Urine Protein Negative (Negative); Urine Specific Gravity 1.008 (1.002-1.030); Urine Urobilinogen Negative (Negative)
[2024-09-09] MEDS: Thiamine 100 MG/ML 2 ml VIAL (200 mg) IM ONE (07:30)
[2024-09-09] MEDS: Multivitamins/Minerals TAB PO SCH (07:31)
[2024-09-09] MEDS: LORazepam 2 mg VIAL 1 ml IV PUSH SCH (07:37)
[2024-09-09 07:59] LABS: Sodium 133 mmol/L (135-145)
[2024-09-09 08:04] LABS: HCG Pregnancy < 0.60 mIU/mL
[2024-09-09 08:13] LABS: TSH Ultra Thyroid Stim Horm 2.05 mcIU/mL (0.34-5.60)
[2024-09-09] MEDS: NS 0.9% 1000 ml BAG 1,000 ML IV ONE (08:13)
[2024-09-09] MEDS ORDERED: Lorazepam PYXIS KEY PRN ×2 (08:17→08:52)
[2024-09-09] MEDS: LORazepam 2 mg VIAL 1 ml IV PUSH ONE ×2 (08:28→08:58)
[2024-09-09 09:23] LABS: Urine Benzodiazepine Screen None Detected (None Detect); Urine Cannabinoids Screen None Detected (None Detect); Urine Opiates Screen None Detected (None Detect)
[2024-09-09 09:34] LABS: ALT 140 U/L (7-52); AST 167 U/L (13-39); Acetaminophen < 15 mcg/mL; Albumin 4.6 g/dL (3.2-5.2); Albumin/Globulin Ratio 1.7 (1-3); Alcohol, S < 13 mg/dL (<13); Alkaline Phosphatase 77 U/L (35-149); Anion Gap 14 mmol/L (2-16); Blood Urea Nitrogen 6 mg/dL (6-24); CO2 Carbon Dioxide 21 mmol/L (22-32); Calcium 9.4 mg/dL (8.6-10.3); Chloride 99 mmol/L (101-111); Creatinine, Serum 0.61 mg/dL (0.51-0.95); Globulin 2.7 g/dL (2-4); Glucose 96 mg/dL (70-100); Potassium 4.1 mmol/L (3.5-5.0); Salicylate < 2.50 mg/dL (<30); Total Bilirubin 0.7 mg/dL (0.2-1.0); Total Protein 7.3 g/dL (6.4-8.9); eGFR CKD-EPI 118.8 (>60)
[2024-09-09] MEDS ORDERED: PHENobarbital IV 65 MG/ML 1 ml VIAL ONE (09:36)
[2024-09-09] MEDS: PHENobarbital IV 130 MG in NS 0.9% 100 ml BAG 100 ML IV ONE (10:13)
[2024-09-09] MEDS: diazePAM INJ CARPUJECT 5 MG/ML SYRINGE IV ONE ×3 (10:37→13:28)
[2024-09-09] MEDS ORDERED: diazePAM INJ CARPUJECT 5 MG/ML SYRINGE ONE (11:01)
[2024-09-09] MEDS: PHENOBARBITAL IV ONE (15:31)
[2024-09-09] MEDS: NS 0.9% IV ONE (15:31)
[2024-09-09] MEDS: diazePAM INJ CARPUJECT 5 MG/ML SYRINGE IV SCH (15:45)
[2024-09-09] MEDS: Enoxaparin 40 MG/0.4 ML SYR SUBCUT SCH (18:14)
[2024-09-09 19:25] LABS: Lipase 50 U/L (11.0-82.0)
[2024-09-10 04:21] LABS: ABS Eosinophils 0.2 10^3/uL (0.0-0.5); ABS Lymphocytes 1.1 10^3/uL (1.0-4.8); ABS Monocytes 0.5 10^3/uL (0.0-0.9); ABS Neutrophils 2.1 10^3/uL (1.5-7.6); Eosinophil % 4.6 %; Hematocrit 35.3 % (35-45); Hemoglobin 12.3 g/dL (11.5-14.3); Lymphocyte % 27.6 %; Mean Corpuscular Hemoglobin 34.6 pg (27-33); Mean Corpuscular Hgb Conc 34.8 g/dL (31-36); Mean Corpuscular Volume 99.5 fL (80-97); Mean Platelet Volume 7.1 fL (7.5-11.2); Platelet Count 193 10^3/uL (150-450); Red Blood Count 3.55 10^6/uL (3.63-4.92); Red Cell Distribution Width 12.6 % (12-17)
[2024-09-10 05:10] LABS: Potassium 3.8 mmol/L (3.5-5.0)
[2024-09-10 05:11] LABS: Albumin 3.7 g/dL (3.2-5.2); Albumin/Globulin Ratio 1.7 (1-3); Calcium 8.3 mg/dL (8.6-10.3); Creatinine, Serum 0.48 mg/dL (0.51-0.95); Globulin 2.2 g/dL (2-4); Magnesium 1.9 mg/dL (1.9-2.7); Total Bilirubin 0.7 mg/dL (0.2-1.0); Total Protein 5.9 g/dL (6.4-8.9); eGFR CKD-EPI 125.8 (>60)
[2024-09-11 04:57] LABS: ABS Eosinophils 0.1 10^3/uL (0.0-0.5); ABS Lymphocytes 1.2 10^3/uL (1.0-4.8); ABS Monocytes 0.7 10^3/uL (0.0-0.9); ABS Neutrophils 2.2 10^3/uL (1.5-7.6); Eosinophil % 3.2 %; Hematocrit 35.8 % (35-45); Hemoglobin 12.5 g/dL (11.5-14.3); Lymphocyte % 28.6 %; Mean Corpuscular Hemoglobin 34.6 pg (27-33); Mean Corpuscular Volume 98.7 fL (80-97); Mean Platelet Volume 6.9 fL (7.5-11.2); Platelet Count 212 10^3/uL (150-450); Red Blood Count 3.63 10^6/uL (3.63-4.92); Red Cell Distribution Width 12.1 % (12-17); White Blood Count 4.3 10^3/uL (3.8-11.8)
[2024-09-11 05:35] LABS: Albumin 3.8 g/dL (3.2-5.2); Albumin/Globulin Ratio 1.7 (1-3); Calcium 8.9 mg/dL (8.6-10.3); Creatinine, Serum 0.56 mg/dL (0.51-0.95); Globulin 2.3 g/dL (2-4); Magnesium 1.9 mg/dL (1.9-2.7); Potassium 3.5 mmol/L (3.5-5.0); Total Bilirubin 0.4 mg/dL (0.2-1.0); Total Protein 6.1 g/dL (6.4-8.9); eGFR CKD-EPI 121.2 (>60)
[2024-09-11 14:45] VITALS: BP 132/67
== END 2024-09-11 14:52 | disposition home or self-care (01) | DRG 775 ==
LOC: ED 06:10 → EDHOLD 11:11 → ICU 11:35 → MEDTELE 09-10 08:41
PROVIDERS: ADMIT Student in an Organized Health Care Education/Training Program; ATTEND Hospitalist